=== PATIENT | female | born 1930 | race Caucasian/White ===

== ENCOUNTER 2018-10-25 09:10 | Inpatient (IN) | payer MEDICARE, OTHER ==
[~2018-10-25] VITALS: Ht 154.9 cm; Wt 70.0 kg
[~2018-10-25 09:10] MED LIST: AMLO-147 PO; ASPI-903 PO; BACTDS PO; BRIM10DR2 BOTH EYES; DONE5TAB46 PO; LATA2.5D2 BOTH EYES; LEVO100T8 PO; OLAN2.5T28 PO; OLME40TA13 PO; SIMV20TA2 PO
[2018-10-25] MEDS ORDERED: SODIUM CHLORIDE 0.9% 1L BAG IV* STA (09:13)
[2018-10-25] MEDS ORDERED: VANCOMYCIN 1 GM (PMX) 250 ML IVPB STA (09:13)
[2018-10-25] MEDS ORDERED: PIPER-TAZO 3.375 GM IV (PMX) 100 ML IVPB STA (09:13)
[2018-10-25] MEDS ORDERED: ACETAMINOPHEN 650MG/20.3ML CUP PEG STA (09:13)
--- NOTE | 2018-10-25 10:10 | ERD ---
ER Documentation Chief Complaint Chief Complaint HPI This is an 88-year-old female who presents to the emergency department by EMS fr [facility]. The patient is chronic bedbound with physician orders for life-sustaining treatment that indicates elective treatment. The patient agrees to attempt CPR, request transfer to the hospital and to use medical treatment IV antibiotics and IV fluids as indicated but specifically indicated she does not want intubation. She does allow for noninvasive positive airway pressure. The patient presented to the emergency department today from her [facility] facility for severe difficulty breathing and hypoxia. The patient was febrile. No antipyretics were given prior to arrival. It is unknown if the patient had any recent hospitalizations. The patient has a PEG tube. ROS All systems reviewed and are negative except as per history of present illness. Medications Home Meds Active Scripts Sulfamethoxazole-Trimethoprim* (Bactrim* DS) 800-160 Mg Tab, 1 TAB PO BID, #20 TAB Prov:JOAN MURPHY V. IMPREGNATOR HELPER 01/20/16 Olanzapine* (Zyprexa*) 2.5 Mg Tablet, 2.5 MG PO DAILY for 30 Days, TAB Prov:MURPHYJOAN HERNANDEZ V. IMPREGNATOR HELPER 01/20/16 Donepezil* (Aricept*) 5 Mg Tablet, 5 MG PO DAILY for 30 Days, TAB Prov:JOAN MURPHY V. IMPREGNATOR HELPER 01/20/16 Reported Medications Latanoprost (Latanoprost) 2.5 Ml Drops, 1 DROP BOTH EYES QHS, #1 BOTTLE 01/17/16 Brimonidine/Timolol* (Combigan*) 10 Ml Drops, 1 DROP BOTH EYES BID, EA 01/17/16 Olmesartan Medoxomil (Benicar) 40 Mg Tablet, 40 MG PO DAILY, #30 TAB 01/17/16 Simvastatin (Simvastatin) 20 Mg Tablet, 20 MG PO DAILY, #30 TAB 01/17/16 Amlodipine Besylate* (Amlodipine Besylate*) 10 Mg Tablet, 10 MG PO DAILY, #30 TAB 01/17/16 Levothyroxine Sodium* (Levothyroxine Sodium*) 100 Mcg Tablet, 100 MCG PO BEFORE BREAKFAST, #30 TAB 01/17/16 Aspirin* (Aspirin* Chew) 81 Mg Tab.chew, 81 MG PO DAILY, TAB.CHEW 01/17/16 Allergies Allergies: Coded Allergies: No Known Allergy (Unverified , 7/10/16) PMhx/Soc History of Surgery: Yes (GALLBLADDER REMOVED 1999, HERNIA REPAIR 30 YRS , LASER [id number]) Anesthesia Reaction: No Hx Neurological Disorder: No Hx Respiratory Disorders: No Hx Cardiac Disorders: No Hx Psychiatric Problems: No Hx Miscellaneous Medical Probl: No Hx Alcohol Use: No Hx Substance Use: No Hx Tobacco Use: No Physical Exam Vitals Vital Signs Date Temp Pulse Resp B/P (MAP) Pulse Ox O2 O2 Flow FiO2 Time Delivery Rate 10/25/18 45 98 30 09:32 10/25/18 101.1 09:30 10/25/18 101.1 60 20 132/53 100 09:12 (79) 10/25/18 Non 10 09:12 Rebreathe r Physical Exam Constitutional:Well-developed. Debilitated patient in severe respiratory distress HEENT:Normocephalic. Atraumatic.Pupils were equal round reactive to light. Moist mucous membranes.No tonsillar exudates. Neck: No nuchal rigidity. No lymphadenopathy. No posterior cervical spine tend erness or step-offs. Respiratory: Using accessory muscles of respiration. Rhonchi bilaterally. No w heezing on end auscultation bilaterally Cardiovascular: Regular rate regular rhythm.No murmurs. No rubs were appreciated.S1, S2 normal. Distal pulses are palpable 2+ bilaterally. GI: Abdomen was soft. Nontender. Non Distended. No pulsatile abdominal masses or bruits. No rebound. No guarding. Bowel sounds were present and normal. PEG tube present Muscle skeletal: No atrophy of the bilateral lower extremities. Patient has no movement of the bilateral lower extremities Skin: No petechia, no purpura. No lesions on the palms or the soles of the feet. No maculopapular rash. No sacral decubitus ulcers NEURO: Patient opens eyes in response to pain. Patient does withdraw to pain. Aphasic and gait unobserved as patient is bedbound Result Diagram: 10/25/1891210/25/18912 Results 24 hrs Laboratory Tests Test 10/25/18 09:13 10/25/18 09:19 10/25/18 10:25 White Blood Count 7.2 10^3/ul Red Blood Count 2.61 10^6/ul Hemoglobin 8.6 g/dl Hematocrit 26.4 % Mean Corpuscular Volume 101.1 fl Mean Corpuscular Hemoglobin 33.0 pg Mean Corpuscular 32.6 g/dl Hemoglobin Concent Red Cell Distribution Width 17.7 % Platelet Count 110 10^3/UL Mean Platelet Volume 10.0 fl Immature Granulocytes % 1.000 % Neutrophils % 85.4 % Lymphocytes % 5.7 % Monocytes % 7.8 % Eosinophils % 0.0 % Basophils % 0.1 % Nucleated Red Blood Cells % 0.0 /100WBC Immature Granulocytes # 0.070 10^3/ul Neutrophils # 6.2 10^3/ul Lymphocytes # 0.4 10^3/ul Monocytes # 0.6 10^3/ul Eosinophils # 0.0 10^3/ul Basophils # 0.0 10^3/ul Nucleated Red Blood Cells # 0.0 10^3/ul Prothrombin Time 18.2 Sec Prothrombin Time Ratio 1.4 INR International 1.50 Normalized Ratio Activated Partial Thromboplast 36.8 Sec Time Sodium Level 136 mmol/L Potassium Level 4.6 mmol/L Chloride Level 104 mmol/L Carbon Dioxide Level 28 mmol/L Anion Gap 4 Blood Urea Nitrogen 30 mg/dl Creatinine 1.08 mg/dl Est Glomerular Filtrat mL/min Rate mL/min Glucose Level 137 mg/dl Calcium Level 8.9 mg/dl Total Bilirubin 1.3 mg/dl Direct Bilirubin 0.00 mg/dl Indirect Bilirubin 1.3 mg/dl Aspartate Amino 49 IU/L Transf (AST/SGOT) Alanine 28 IU/L Aminotransferase (ALT/SGPT) Alkaline Phosphatase 148 IU/L Troponin I 0.065 ng/ml B-Type Natriuretic Peptide 61139 PG/ML Total Protein 7.4 g/dl Albumin 2.5 g/dl Globulin 4.90 g/dl Albumin/Globulin Ratio 0.51 Amylase Level 83 U/L Lipase 106 U/L POC Venous Lactate 2.2 mmol/L Urine Color CAMPOS Urine Clarity TURBID Urine pH 5.0 Urine Specific [place] 1.016 Urine Ketones NEGATIVE mg/dL Urine Nitrite NEGATIVE mg/dL Urine Bilirubin NEGATIVE mg/dL Urine Urobilinogen NEGATIVE mg/dL Urine Leukocyte Esterase 3+ Courtney/ul Urine Microscopic RBC 0 /HPF Urine Microscopic WBC > 182 /HPF Urine Squamous Epithelial Cells FEW /HPF Urine Amorphous Crystals FEW /HPF Urine Bacteria MANY /HPF Urine Mucus FEW /HPF Urine Hemoglobin 1+ mg/dL Urine Glucose 1+ mg/dL Urine Total Protein 3+ mg/dl Current Medications Medications Dose Sig/Renee Start Time Status Last (Trade) Ordered Route PRN Stop Time Admin Dose Reason Admin Sodium 2,400 ml BOLUS OVER 2 10/25/18 DC 10/25/18 Chloride HOURS STAT 09:13 09:29 (NS) IV* 10/25/18 09:23 650 mg ONCE STAT 10/25/18 DC 10/25/18 Acetaminophen PEG 09:13 09:30 (Tylenol 10/25/18 09:23 Liquid) Vancomycin 250 ml @ ONCE STAT 10/25/18 10/25/18 HCl 125 mls/hr IVPB 09:13 10:29 10/25/18 11:12 Piperacillin 100 ml @ ONCE STAT 10/25/18 DC 10/25/18 Sod/ 200 mls/hr IVPB 09:13 09:30 Tazobactam 10/25/18 09:42 Sod Procedures/MDM This patient presented to the emergency department febrile with difficulty breathing. Patient's infectious symptoms have not stabilized and the patient is at risk of rapid decompensation. The patient will be admitted for careful hydration, antibiotic therapy, and infectious source control. Severe Sepsis Assessment: Infectious Source: Suspected aspiration pneumonia End organ damage indicated by: Lactate > 2.0 mmol/L Hypotension( SBP < 90 or >40 mmHG drop or MAP < 65) Acute Resp Failure (sat < 92% w/o oxygen) Severe Sepsis Managment: Blood Cultures X 2 before broad spectrum antibiotics initiated within 3 hours of recognition. 30 ml/kg NS bolus Completed Initial Lactate: 2.2 Repeat Lactate pending I considered further perfusion assessment with CVP measurement, SCVO2, bedside ultrasound volume assessment, passive leg raise, trial of further fluid bolus. And preceded with IV fluids 12 Lead EKG tracing ordered and reviewed by myself showed: Sinus bradycardia at 50 bpm and no arrhythmia. WI interval normal. QRS duration normal. No ST segment elevation No ST segment depression. No changes consistent with acute ischemia. The patient chest radiograph reviewed by myself the radiologist which indicated the following: Moderate cardiomegaly with pulmonary vascular congestion. Slightly more focal right lower lobe infiltrates. The patient had received vancomycin and Zosyn for suspected aspiration pneumonia. However the patient's respiratory distress was also also consistent with a severe congestive heart failure exacerbation with an elevated BNP. Therefore patient received gentle IV fluid resuscitation did not receive a com plete 30 cc/kg bolus of normal saline due to fluid overload. The patient did receive roughly 1 L of IV fluids. The patient was normotensive and did receive 20 mg of Lasix intravenously as well as nebulizer treatments of albuterol and Atrovent. Her respiratory distress had significantly improved when on the BiPAP. The patient also had an indwelling Chris catheter placed in the emergency depart ment. She had a significant urinary tract infection but had already received broad-spectrum antibiotics for aspiration pneumonia. Urine culture and blood cultures were sent prior to antibiotics She will be admitted in serious condition to the hospitalist Dr. Dangelo. Critical Care: Time: 80 minutes Treatments/Evaluations: Close monitoring and treatment of unstable vital signs, cardiorespiratory, and neurologic status, while maintaining tight balance of fluid, respiratory, and cardiac interventions. Time does not include performing any of the above billable procedures. Departure Diagnosis: Primary Impression: CHF (congestive heart failure) Heart failure type: unspecified Heart failure chronicity: acute on chronic Qualified Codes: I50.9 - Heart failure, unspecified Additional Impressions: Aspiration pneumonia Aspiration pneumonia type: unspecified Laterality: right Lung location: lower lobe of lung Qualified Codes: J69.0 - Pneumonitis due to inhalation of food and vomit Urinary tract infection Urinary tract infection type: acute cystitis Hematuria presence: without hematuria Qualified Codes: N30.00 - Acute cystitis without hematuria Sepsis Sepsis type: sepsis due to unspecified organism Qualified Codes: A41.9 - Sepsis, unspecified organism Condition: Serious NAZIA LEAL MD Oct 25, 2018 10:06
[2018-10-25] MEDS ORDERED: ALBUTEROL 0.5% (NEB) 2.5 MG/0.5 ML AMP INH STA (11:01)
[2018-10-25] MEDS ORDERED: IPRATROPIUM (NEB) 0.5 MG/2.5 ML AMP INH STA (11:01)
[2018-10-25] MEDS ORDERED: AMLO5TAB4 GTB (11:08)
[2018-10-25] MEDS ORDERED: ASPI81TA52 GTB (11:09)
[2018-10-25] MEDS ORDERED: LATA2.5D2 BOTH EYES (11:10)
[2018-10-25] MEDS ORDERED: LEVO50TA71 GTB (11:10)
[2018-10-25] MEDS ORDERED: LACT20SO2 PO (11:13)
[2018-10-25] MEDS ORDERED: FOLI-49 GTB (11:16)
[2018-10-25] MEDS ORDERED: ESCI10TA GTB (11:17)
[2018-10-25] MEDS ORDERED: FER325 GTB (11:17)
[2018-10-25] MEDS ORDERED: BUSP10TA2 GTB (11:19)
[2018-10-25] MEDS ORDERED: NA P133E10 RC (11:20)
[2018-10-25] MEDS ORDERED: BISA10SU55 RC (11:21)
[2018-10-25] MEDS ORDERED: MAGN400O19 GTB (11:22)
[2018-10-25] MEDS ORDERED: FUROSEMIDE 20 MG INJ IV ONE (11:30)
[2018-10-25] MEDS ORDERED: ONDANSETRON 4 MG INJ IV PRN ×2 (11:30→14:30)
[2018-10-25] MEDS ORDERED: ACETAMINOPHEN 325 MG TAB PO PRN (11:30)
--- NOTE | 2018-10-25 14:05 | HP ---
Date/Time of Note Date/Time of Note DATE: 10/25/18 TIME: 14:05 Assessment/Plan VTE Prophylaxis Pharmacological prophylaxis: NA/contraindicated Pharm contraindication: other Lines/Catheters IV [facility]from [facility] Saline Lock Assessment/Plan Hospital Course 88 year old female with past medical history of hypertension, hyperlipidemia, hypothyroidism, dementia, dysphagia status post G-tube placement, and carotid artery disease. [facility]. The patient was transferred from the SNF because of tachypnea and dyspnea. She was found to have evidence of underlying sepsis with tachypnea, febrile illness, and lactic acidosis. The patient will be admitted to inpatient setting for further treatment and evaluation. 1. Sepsis with underlying tachypnea, fevers, and lactic acidosis, present on admission, probably secondary to underlying urinary tract infection. Sepsis criteria: tachypnea, fevers, and lactic acidosis. Infectious source: Suspect UTI and aspiration pneumonitis. -Pancultures obtained. -Start empiric antibiotics including coverage for anaerobes because of suspected aspiration. 2. Acute hypoxic respiratory failure. -Etiology unclear. -Continue the patient on inhaled bronchodilators (KAY). -Obtain 2D echocardiogram to evaluate for any underlying congestive heart failure. -Continue treatment for aspiration pneumonia. 3. Hypertension. -Start the patient on appropriate antihypertensives. 4. Hypothyroidism. -Resume Synthroid. 5. Dysphagia. -Aspiration precautions. -Resume G-tube feedings once clinically stable. 6. Dyslipidemia. -Obtain fasting lipid panel. 7. Anemia. -Macrocytic -Etiology unclear -Obtain vitamin B12 and folate levels. 8. Possible underlying congestive heart failure exacerbation, systolic versus diastolic dysfunction. -Obtain 2D echocardiogram to evaluate the left ventricular ejection fraction. -Diuresis as clinically indicated. Plan: The patient will be admitted to inpatient telemetry floor. The patient will be kept n.p.o.. The patient will be started on DVT prophylaxis. The patient will remain a full code except for intubation. Activities will be bedrest. The rest of the patient's management will be based on the clinical course and the results of diagnostic studies. Based on the patient's clinical presentation, she most probably requires at least 2 midnights' stay for further management and evaluation of her clinical presentation. The patient was seen in collaboration with Dr. Bryant. Result Diagram: 10/25/18 0913 10/25/18 0913 Results 24hrs Laboratory Tests Test 10/25/18 09:13 10/25/18 09:19 10/25/18 10:25 White Blood Count 7.2 # Red Blood Count 2.61 L Hemoglobin 8.6 L Hematocrit 26.4 L Mean Corpuscular Volume 101.1 H Mean Corpuscular Hemoglobin 33.0 Mean Corpuscular 32.6 Hemoglobin Concent Red Cell Distribution Width 17.7 #H Platelet Count 110 L Mean Platelet Volume 10.0 # Immature Granulocytes % 1.000 H Neutrophils % 85.4 H Lymphocytes % 5.7 L Monocytes % 7.8 Eosinophils % 0.0 Basophils % 0.1 Nucleated Red Blood Cells % 0.0 Immature Granulocytes # 0.070 H Neutrophils # 6.2 Lymphocytes # 0.4 L Monocytes # 0.6 Eosinophils # 0.0 Basophils # 0.0 Nucleated Red Blood Cells # 0.0 Prothrombin Time 18.2 H Prothrombin Time Ratio 1.4 INR International 1.50 Normalized Ratio Activated 36.8 H Partial Thromboplast Time Blood Gas Specimen Source Blood arterial Arterial Blood Date Drawn 10/25/2018 11:36:08 AM Arterial Blood pH 7.433 (Temp corrected) Arterial Blood pCO2 42.1 (Temp correct) Arterial Blood pO2 70.5 L (Temp corrected) Arterial Blood HCO3 27.5 H Arterial Blood Base Excess 2.9 Arterial Blood 93.2 L Oxygen Saturation Bahman Test ACCEPTAB Arterial Blood Gas Right Radial Puncture Site Arterial 0.8 Blood Carboxyhemoglobin Arterial Blood 0.2 Methemoglobin Blood Gas A-a O2 93.9 H Differential Oxyhemoglobin Percent 92.3 L Blood Gas Temperature 37.0 Blood Gas Respiration Rate 14.0 Blood Gas Actual 22 Respiration Rate Blood Gas Modality MASK - BIPAP FiO2 30.0 Blood Gas Pressure Support 10 Blood Gas IPAP/EPAP Ratio 15/5 Blood Gas Notified Whom CM Blood Gas Notified Time 10/25/2018 11:50:08 AM Sodium Level 136 Potassium Level 4.6 Chloride Level 104 Carbon Dioxide Level 28 Anion Gap 4 L Blood Urea Nitrogen 30 H Creatinine 1.08 H Est Glomerular Filtrat Rate mL/min Glucose Level 137 Calcium Level 8.9 Total Bilirubin 1.3 Direct Bilirubin 0.00 Indirect Bilirubin 1.3 H Aspartate Amino 49 H Transf (AST/SGOT) Alanine 28 Aminotransferase (ALT/SGPT) Alkaline Phosphatase 148 H Troponin I 0.065 B-Type Natriuretic Peptide 63250 H Total Protein 7.4 Albumin 2.5 L Globulin 4.90 H Albumin/Globulin Ratio 0.51 Amylase Level 83 Lipase 106 POC Venous Lactate 2.2 *H Urine Color CAMPOS Urine Clarity TURBID A Urine pH 5.0 Urine Specific [place] 1.016 Urine Ketones NEGATIVE Urine Nitrite NEGATIVE Urine Bilirubin NEGATIVE Urine Urobilinogen NEGATIVE Urine Leukocyte Esterase 3+ H Urine Microscopic RBC 0 Urine Microscopic WBC > 182 H Urine Squamous FEW Epithelial Cells Urine Amorphous Crystals FEW A Urine Bacteria MANY A Urine Mucus FEW A Urine Hemoglobin 1+ H Urine Glucose 1+ H Urine Total Protein 3+ H HPI/ROS Admit Date/Time Admit Date/Time Hx of Present Illness This is an 88-year-old female with past medical history of hypertension, hyperlipidemia, hypothyroidism, dementia, dysphagia status post G-tube placement, and carotid artery disease. The patient is a residential resident. The patient was brought in to the emergency room because of dyspnea and hypoxia. The patient has underlying dementia and the patient was on a noninvasive positive pressure ventilation in the emergency room. Therefore, details of the patient's medical history was obtained by review of the patient's medical records by and by talking to the ER personnel. In the emergency room, the patient was noticed to have febrile illness, lactic acidosis, and tachypnea. The patient's chest x-ray was showing moderate cardiomegaly with pulmonary vascular congestion and a slightly more focal right lower lobe infiltrate. The patient was treated with IV Zosyn and vancomycin along with inhaled bronchodilators and a single dose of IV Lasix. The patient was also given IV fluid resuscitation. The patient's influenza A and B screen was negative. The patient's urinalysis was positive for 3+ leukocyte esterase with a urine microscopic WBC of more than 182. The patient's ABG was showing evidence of hypoxia. ROS Subjective hx not possible: pt non-verbal, pt critical status Additional Comments CXR IMPRESSION: Moderate cardiomegaly with pulmonary vascular congestion. Slightly more focal right lower lobe infiltrates. PMH/Family/Social Past Medical History 1. Hypertension. 2. Hyperlipidemia. 3. Hypothyroidism. 4. Dementia. 5. Carotid artery disease. 6. Dysphagia. Medications Current Medications Ondansetron HCl (Zofran Inj) 4 mg ER BRIDGE PRN IV NAUSEA/VOMITING; Start 10/25/18 at 11:30; Stop 4/20/19 at 11:29 Acetaminophen (Tylenol Tab) 650 mg ER BRIDGE PRN PO .MILD PAIN 1-3 OR TEMP; Start 10/25/18 at 11:30; Stop 10/26/18 at 11:29 Coded Allergies: No Known Allergy (Unverified , 10/25/18) Past Surgical History 1. G-tube placement. 2. Cholecystectomy. 3. Hernia repair. Social History The patient is a residential resident. Alcohol Use: none Smoking Status: Never smoker Drug Use: none Exam/Review of Systems Vital Signs Vitals Vital Signs Date Temp Pulse Resp B/P (MAP) Pulse Ox O2 O2 Flow FiO2 Time Delivery Rate 10/25/18 59 96 30 13:48 10/25/18 21 133/47 BIPAP 11:30 (75) 10/25/18 101.1 09:30 10/25/18 10 09:12 Exam Exam General: Adequately build 88 year-old female lying in bed in mild to moderate r espiratory distress. HEENT: Normocephalic, atraumatic. Eyes: Anicteric sclerae, conjunctivae clear. ENT: Nasal septum midline, oral mucosa is dry. Neck supple. Respiratory: Bilaterally diminished breath sounds. On BiPAP. Use of accessory muscles of respiration. Bilateral rhonchi. Cardiovascular: S1, S2 heard. Regular rate and rhythm. Abdomen: Soft, nontender, and nondistended. G-tube in the left upper quadrant. Genitourinary: Hcris catheter in place.. Extremities: No cyanosis, no clubbing, no edema. Peripheral pulses palpable. Contractures in bilateral lower extremities. Neurologic: The patient is somnolent. ADRIANE MAHMOOD NP Oct 25, 2018 14:05
[2018-10-25] MEDS ORDERED: NACL 0.9% 3 ML SYG IV SCH (14:30)
[2018-10-25] MEDS ORDERED: VANCOMYCIN IV PER PHARMACY XX SCH (14:30)
[2018-10-25] MEDS ORDERED: ALBUTEROL/IPRATROPIUM (NEB) 3 ML AMP HHN PRN (14:30)
[2018-10-25] MEDS ORDERED: NA PHOSPHATE/BIPHOS 133 ML ENEMA PR PRN (15:30)
[2018-10-25] MEDS ORDERED: BISACODYL 10 MG SUPP PR PRN (15:30)
[2018-10-25 17:45] VITALS: Ht 154.9 cm; Wt 70.0 kg
[2018-10-25 17:55] VITALS: BP 135/63; PULSE 48; RESP 14
[2018-10-25] MEDS ORDERED: PIPER-TAZO 3.375 GM IV (PMX) 100 ML IVPB SCH (18:00)
[2018-10-25 20:00] VITALS: BP 129/63; PULSE 60; RESP 15
[2018-10-25] MEDS: ALBUTEROL/IPRATROPIUM (NEB) 3 ML AMP HHN SCH (20:09)
[2018-10-25 20:12] VITALS: PULSE 41; PULSE 48
[2018-10-25] MEDS ORDERED: BUSPIRONE 10 MG TAB GTB SCH (21:00)
[2018-10-25] MEDS ORDERED: ATROPINE 1 MG/10 ML SYRINGE IV PRN (22:00)
[2018-10-25] MEDS: LACTULOSE 30ML CUP PO SCH (22:46)
[2018-10-25] MEDS: LATANOPROST 0.005% 2.5 ML OPH BOTH EYES SCH (22:47)
[2018-10-25 23:06] VITALS: BP 137/58; PULSE 46; RESP 16
[2018-10-26] VITALS (13 sets, daily range): BP systolic 128–173; BP diastolic 66–93; PULSE 43–94; RESP 16–21
[2018-10-26] MEDS: PIPER-TAZO 2.25 GM/NS 50 ML IVPB SCH ×4 (00:06→18:06)
[2018-10-26] MEDS: LEVOTHYROXINE 50 MCG TAB GTB SCH (07:02)
[2018-10-26] MEDS: ALBUTEROL/IPRATROPIUM (NEB) 3 ML AMP HHN SCH ×3 (07:56→20:22)
--- NOTE | 2018-10-26 09:12 | PN ---
Date/Time of Note Date/Time of Note DATE: 10/26/18 TIME: 09:07 Assessment/Plan VTE Prophylaxis Risk score (from Ns)>0 risk: 8 SCD applied (from Ns): Yes Pharmacological prophylaxis: NA/contraindicated Pharm contraindication: anticoag not tolerated Lines/Catheters IV C[facility]ter Type (from [facility] Saline Lock Urinary Cath still in place: Yes Reason Cath still needed: other (indicate) Assessment/Plan Hospital Course SUBJECTIVE: Remains afebrile. Had episodes of sinus bradycardia last night. OBJECTIVE: Physical Exam General: Adequately build 88 year-old female lying in bed in mild to moderate respiratory distress. HEENT: Normocephalic, atraumatic. Eyes: Anicteric sclerae, conjunctivae clear. ENT: Nasal septum midline, oral mucosa is dry. Neck supple. Respiratory: Bilaterally diminished breath sounds. On BiPAP. Use of accessory muscles of respiration. Bilateral rhonchi. Cardiovascular: S1, S2 heard. Regular rate and rhythm. Abdomen: Soft, nontender, and nondistended. G-tube in the left upper quadrant. Genitourinary: Chris catheter in place.. Extremities: No cyanosis, no clubbing, no edema. Peripheral pulses palpable. Contractures in bilateral lower extremities. Neurologic: The patient is somnolent. Labs & Vitals per chart ASSESSMENT & PLAN 88 year old female with past medical history of hypertension, hyperlipidemia, hypothyroidism, dementia, dysphagia status post G-tube placement, and carotid artery disease. The patient lives at a longterm facility. The patient was transferred from the SNF because of tachypnea and dyspnea. She was found to have evidence of underlying sepsis with tachypnea, febrile illness, and lactic acidosis. The patient was admitted to inpatient setting for further treatment and evaluation. 1. Sepsis with underlying tachypnea, fevers, and lactic acidosis, present on admission, probably secondary to underlying urinary tract infection. Sepsis criteria: tachypnea, fevers, and lactic acidosis. Infectious source: Suspect UTI and aspiration pneumonitis. -Pancultures obtained. -Continue empiric antibiotics including coverage for anaerobes because of suspected aspiration. 2. Acute hypoxic respiratory failure. -Etiology unclear. -Continue the patient on inhaled bronchodilators (KAY). -Obtain 2D echocardiogram to evaluate for any underlying congestive heart failure. -Continue treatment for aspiration pneumonia. 3. Hypertension. -Continue the patient on appropriate antihypertensives. 4. Hypothyroidism. -Continue Synthroid. 5. Dysphagia. -Aspiration precautions. -Continue G-tube feedings. 6. Dyslipidemia. -Obtain fasting lipid panel. 7. Anemia. -Macrocytic -Etiology unclear -Obtain vitamin B12 and folate levels. 8. Possible underlying congestive heart failure exacerbation, systolic versus diastolic dysfunction. -Obtain 2D echocardiogram to evaluate the left ventricular ejection fraction. -Diuresis as clinically indicated. 9. Sinus bradycardia. -Etiology unclear. -Thyroid panel within normal limits. -Monitor. 10. Fluids, electrolytes, and nutrition. -N.p.o. -Resume G-tube feeds. 11. DVT prophylaxis. -Bilateral SCDs. 12. Plan. -Continue empiric antimicrobials. -Continue diuresis. -Await 2D echocardiogram. -Await final cultures. -Start G-tube feeds. The patient was seen in collaboration with Dr. Bryant. Result Diagram: 10/26/18 0533 10/26/1833 Results 24hrs Laboratory Tests Test 10/25/18 09:13 10/25/18 09:19 10/25/18 10:25 10/25/18 13:30 White Blood 7.2 # Count Red Blood Count 2.61 L Hemoglobin 8.6 L Hematocrit 26.4 L Mean Corpuscular 101.1 H Volume Mean Corpuscular 33.0 Hemoglobin Mean Corpuscular 32.6 Hemoglobin Jovita nt Red Cell 17.7 #H Distribution Width Platelet Count 110 L Mean Platelet 10.0 # Volume Immature 1.000 H Granulocytes % Neutrophils % 85.4 H Lymphocytes % 5.7 L Monocytes % 7.8 Eosinophils % 0.0 Basophils % 0.1 Nucleated Red 0.0 Blood Cells % Immature 0.070 H Granulocytes # Neutrophils # 6.2 Lymphocytes # 0.4 L Monocytes # 0.6 Eosinophils # 0.0 Basophils # 0.0 Nucleated Red 0.0 Blood Cells # Prothrombin Time 18.2 H Prothrombin Time 1.4 Ratio INR 1.50 International Normalized Ratio Activated 36.8 H Partial Thrombop last Time Blood Gas Blood arterial Specimen Source Arterial Blood 10/25/2018 11:36 Date Drawn :08 AM Arterial Blood 7.433 pH (Temp corrected) Arterial Blood 42.1 pCO2 (Temp correct) Arterial Blood 70.5 L pO2 (Temp corrected) Arterial Blood 27.5 H HCO3 Arterial Blood 2.9 Base Excess Arterial Blood 93.2 L Oxygen Saturatio n Bahman Test ACCEPTAB Arterial Blood Right Radial Gas Puncture Site Arterial 0.8 Blood Carboxyhem oglobin Arterial Blood 0.2 Methemoglobin Blood Gas A-a O2 93.9 H Differential Oxyhemoglobin 92.3 L Percent Blood Gas 37.0 Temperature Blood Gas 14.0 Respiration Rate Blood Gas Actual 22 Respiration Rate Blood Gas MASK - BIPAP Modality FiO2 30.0 Blood Gas 10 Pressure Support Blood Gas 15/5 IPAP/EPAP Ratio Blood Gas CM Notified Whom Blood Gas 10/25/2018 11:50 Notified Time :08 AM Sodium Level 136 Potassium Level 4.6 Chloride Level 104 Carbon Dioxide 28 Level Anion Gap 4 L Blood Urea 30 H Nitrogen Creatinine 1.08 H Est Glomerular Filtrat Rate mL/min Glucose Level 137 Calcium Level 8.9 Total Bilirubin 1.3 Direct Bilirubin 0.00 Indirect 1.3 H Bilirubin Aspartate Amino 49 H Transf (AST/SGOT ) Alanine 28 Aminotransferase (ALT/SGPT) Alkaline 148 H Phosphatase Troponin I 0.065 B-Type 39855 H Natriuretic Peptide Total Protein 7.4 Albumin 2.5 L Globulin 4.90 H Albumin/Globulin 0.51 Ratio Amylase Level 83 Lipase 106 POC Venous 2.2 *H Lactate Urine Color CAMPOS Urine Clarity TURBID A Urine pH 5.0 Urine Specific 1.016 Merna Urine Ketones NEGATIVE Urine Nitrite NEGATIVE Urine Bilirubin NEGATIVE Urine NEGATIVE Urobilinogen Urine Leukocyte 3+ H Esterase Urine 0 Microscopic RBC Urine > 182 H Microscopic WBC Urine Squamous FEW Epithelial Cells Urine Amorphous FEW A Crystals Urine Bacteria MANY A Urine Mucus FEW A Urine Hemoglobin 1+ H Urine Glucose 1+ H Urine Total 3+ H Protein Lactic Acid 1.4 Level Test 10/25/18 15:34 10/25/18 20:36 10/26/18 05:33 Hemoglobin A1c 4.6 Vitamin B12 872 Level Folate > 20.0 H Thyroid 4.620 Stimulating Hormone (TSH) Free Thyroxine 0.95 Blood Gas Blood arterial Specimen Source Arterial Blood 10/25/2018 8:48: Date Drawn 29 PM Arterial Blood 7.451 H pH (Temp corrected) Arterial Blood 40.5 pCO2 (Temp correct) Arterial Blood 82.4 pO2 (Temp corrected) Arterial Blood 27.6 H HCO3 Arterial Blood 3.3 H Base Excess Arterial Blood 95.6 Oxygen Saturatio n Bahman Test ACCEPTAB Arterial Blood Left Radial Gas Puncture Site Arterial 0.5 Blood Carboxyhem oglobin Arterial Blood 0.1 Methemoglobin Blood Gas A-a O2 83.9 H Differential Oxyhemoglobin 95.0 Percent Blood Gas 37.0 Temperature Blood Gas 14.0 Respiration Rate Blood Gas Actual 14 Respiration Rate Blood Gas MASK - BIPAP Modality FiO2 30.0 Blood Gas 10 Pressure Support Blood Gas 15/5 IPAP/EPAP Ratio Blood Gas LW Notified Whom Blood Gas 10/25/2018 9:01: Notified Time 38 PM White Blood 3.9 #L Count Red Blood Count 2.71 L Hemoglobin 8.7 L Hematocrit 27.6 L Mean Corpuscular 101.8 H Volume Mean Corpuscular 32.1 Hemoglobin Mean Corpuscular 31.5 L Hemoglobin Jovita nt Red Cell 17.8 H Distribution Width Platelet Count 83 #L Mean Platelet 11.0 H Volume Immature 0.500 H Granulocytes % Neutrophils % 71.8 Lymphocytes % 10.9 L Monocytes % 11.1 H Eosinophils % 5.2 Basophils % 0.5 Nucleated Red 0.0 Blood Cells % Immature 0.020 Granulocytes # Neutrophils # 2.8 Lymphocytes # 0.4 L Monocytes # 0.4 Eosinophils # 0.2 Basophils # 0.0 Nucleated Red 0.0 Blood Cells # Sodium Level 140 Potassium Level 3.9 Chloride Level 111 H Carbon Dioxide 26 Level Anion Gap 3 L Blood Urea 33 H Nitrogen Creatinine 1.17 H Est Glomerular Filtrat Rate mL/min Glucose Level 78 # Calcium Level 8.8 Phosphorus Level 3.9 Magnesium Level 2.5 Total Bilirubin 1.1 Direct Bilirubin 0.00 Indirect 1.1 Bilirubin Aspartate Amino 39 Transf (AST/SGOT ) Alanine 28 Aminotransferase (ALT/SGPT) Alkaline 89 Phosphatase Total Protein 6.1 # Albumin 2.0 L Globulin 4.10 H Albumin/Globulin 0.48 Ratio Triglycerides 40 Level Cholesterol 57 L Level LDL Cholesterol, 35 Calculated HDL Cholesterol 14 L Cholesterol/HDL 4.0 Ratio Exam/Review of Systems Exam Vitals Vital Signs Date Temp Pulse Resp B/P (MAP) Pulse Ox O2 O2 Flow FiO2 Time Delivery Rate 10/26/18 49 08:11 10/26/18 97.9 17 128/78 96 07:53 (95) 10/26/18 Nasal 07:32 Cannula 10/26/18 40 05:24 10/25/18 10 09:12 Intake and Output 10/25/18 10/25/18 10/26/18 1515:00 23:00 07:00 OutputOutput Total 200 ml 500 ml BalanceBalance -200 ml -500 ml Results Results 24hrs Laboratory Tests Test 10/25/18 09:13 10/25/18 09:19 10/25/18 10:25 10/25/18 13:30 White Blood 7.2 # Count Red Blood Count 2.61 L Hemoglobin 8.6 L Hematocrit 26.4 L Mean Corpuscular 101.1 H Volume Mean Corpuscular 33.0 Hemoglobin Mean Corpuscular 32.6 Hemoglobin Jovita nt Red Cell 17.7 #H Distribution Width Platelet Count 110 L Mean Platelet 10.0 # Volume Immature 1.000 H Granulocytes % Neutrophils % 85.4 H Lymphocytes % 5.7 L Monocytes % 7.8 Eosinophils % 0.0 Basophils % 0.1 Nucleated Red 0.0 Blood Cells % Immature 0.070 H Granulocytes # Neutrophils # 6.2 Lymphocytes # 0.4 L Monocytes # 0.6 Eosinophils # 0.0 Basophils # 0.0 Nucleated Red 0.0 Blood Cells # Prothrombin Time 18.2 H Prothrombin Time 1.4 Ratio INR 1.50 International Normalized Ratio Activated 36.8 H Partial Thrombop last Time Blood Gas Blood arterial Specimen Source Arterial Blood 10/25/2018 11:36 Date Drawn :08 AM Arterial Blood 7.433 pH (Temp corrected) Arterial Blood 42.1 pCO2 (Temp correct) Arterial Blood 70.5 L pO2 (Temp corrected) Arterial Blood 27.5 H HCO3 Arterial Blood 2.9 Base Excess Arterial Blood 93.2 L Oxygen Saturatio n Bahman Test ACCEPTAB Arterial Blood Right Radial Gas Puncture Site Arterial 0.8 Blood Carboxyhem oglobin Arterial Blood 0.2 Methemoglobin Blood Gas A-a O2 93.9 H Differential Oxyhemoglobin 92.3 L Percent Blood Gas 37.0 Temperature Blood Gas 14.0 Respiration Rate Blood Gas Actual 22 Respiration Rate Blood Gas MASK - BIPAP Modality FiO2 30.0 Blood Gas 10 Pressure Support Blood Gas 15/5 IPAP/EPAP Ratio Blood Gas CM Notified Whom Blood Gas 10/25/2018 11:50 Notified Time :08 AM Sodium Level 136 Potassium Level 4.6 Chloride Level 104 Carbon Dioxide 28 Level Anion Gap 4 L Blood Urea 30 H Nitrogen Creatinine 1.08 H Est Glomerular Filtrat Rate mL/min Glucose Level 137 Calcium Level 8.9 Total Bilirubin 1.3 Direct Bilirubin 0.00 Indirect 1.3 H Bilirubin Aspartate Amino 49 H Transf (AST/SGOT ) Alanine 28 Aminotransferase (ALT/SGPT) Alkaline 148 H Phosphatase Troponin I 0.065 B-Type 45623 H Natriuretic Peptide Total Protein 7.4 Albumin 2.5 L Globulin 4.90 H Albumin/Globulin 0.51 Ratio Amylase Level 83 Lipase 106 POC Venous 2.2 *H Lactate Urine Color CAMPOS Urine Clarity TURBID A Urine pH 5.0 Urine Specific 1.016 Merna Urine Ketones NEGATIVE Urine Nitrite NEGATIVE Urine Bilirubin NEGATIVE Urine NEGATIVE Urobilinogen Urine Leukocyte 3+ H Esterase Urine 0 Microscopic RBC Urine > 182 H Microscopic WBC Urine Squamous FEW Epithelial Cells Urine Amorphous FEW A Crystals Urine Bacteria MANY A Urine Mucus FEW A Urine Hemoglobin 1+ H Urine Glucose 1+ H Urine Total 3+ H Protein Lactic Acid 1.4 Level Test 10/25/18 15:34 10/25/18 20:36 10/26/18 05:33 Hemoglobin A1c 4.6 Vitamin B12 872 Level Folate > 20.0 H Thyroid 4.620 Stimulating Hormone (TSH) Free Thyroxine 0.95 Blood Gas Blood arterial Specimen Source Arterial Blood 10/25/2018 8:48: Date Drawn 29 PM Arterial Blood 7.451 H pH (Temp corrected) Arterial Blood 40.5 pCO2 (Temp correct) Arterial Blood 82.4 pO2 (Temp corrected) Arterial Blood 27.6 H HCO3 Arterial Blood 3.3 H Base Excess Arterial Blood 95.6 Oxygen Saturatio n Bahman Test ACCEPTAB Arterial Blood Left Radial Gas Puncture Site Arterial 0.5 Blood Carboxyhem oglobin Arterial Blood 0.1 Methemoglobin Blood Gas A-a O2 83.9 H Differential Oxyhemoglobin 95.0 Percent Blood Gas 37.0 Temperature Blood Gas 14.0 Respiration Rate Blood Gas Actual 14 Respiration Rate Blood Gas MASK - BIPAP Modality FiO2 30.0 Blood Gas 10 Pressure Support Blood Gas 15/5 IPAP/EPAP Ratio Blood Gas LW Notified Whom Blood Gas 10/25/2018 9:01: Notified Time 38 PM White Blood 3.9 #L Count Red Blood Count 2.71 L Hemoglobin 8.7 L Hematocrit 27.6 L Mean Corpuscular 101.8 H Volume Mean Corpuscular 32.1 Hemoglobin Mean Corpuscular 31.5 L Hemoglobin Jovita nt Red Cell 17.8 H Distribution Width Platelet Count 83 #L Mean Platelet 11.0 H Volume Immature 0.500 H Granulocytes % Neutrophils % 71.8 Lymphocytes % 10.9 L Monocytes % 11.1 H Eosinophils % 5.2 Basophils % 0.5 Nucleated Red 0.0 Blood Cells % Immature 0.020 Granulocytes # Neutrophils # 2.8 Lymphocytes # 0.4 L Monocytes # 0.4 Eosinophils # 0.2 Basophils # 0.0 Nucleated Red 0.0 Blood Cells # Sodium Level 140 Potassium Level 3.9 Chloride Level 111 H Carbon Dioxide 26 Level Anion Gap 3 L Blood Urea 33 H Nitrogen Creatinine 1.17 H Est Glomerular Filtrat Rate mL/min Glucose Level 78 # Calcium Level 8.8 Phosphorus Level 3.9 Magnesium Level 2.5 Total Bilirubin 1.1 Direct Bilirubin 0.00 Indirect 1.1 Bilirubin Aspartate Amino 39 Transf (AST/SGOT ) Alanine 28 Aminotransferase (ALT/SGPT) Alkaline 89 Phosphatase Total Protein 6.1 # Albumin 2.0 L Globulin 4.10 H Albumin/Globulin 0.48 Ratio Triglycerides 40 Level Cholesterol 57 L Level LDL Cholesterol, 35 Calculated HDL Cholesterol 14 L Cholesterol/HDL 4.0 Ratio Medications Medication Current Medications Ondansetron HCl (Zofran Inj) 4 mg ER BRIDGE PRN IV NAUSEA/VOMITING; Start 10/25/18 at 11:30; Stop 10/26/18 at 11:29 Acetaminophen (Tylenol Tab) 650 mg ER BRIDGE PRN PO .MILD PAIN 1-3 OR TEMP; Start 10/25/18 at 11:30; Stop 10/26/18 at 11:29 IV Flush (NS 3 ml) 3 ml PER PROTOCOL IV ; Start 10/25/18 at 14:30 Ondansetron HCl (Zofran Inj) 4 mg Q6H PRN IV NAUSEA/VOMITING; Start 10/25/18 at 14:30 Vancomycin HCl (Vanco Iv Per Pharmacy) VANCOMYCIN PER PHARMACY PER PROTOCOL XX ; Start 10/25/18 at 14:30 Albuterol/ Ipratropium (Duoneb) 3 ml Q6HWA RESP THERAPY HHN Last administered on 10/26/18at 07:56; Admin Dose 3 ML; Start 10/25/18 at 20:00 Albuterol/ Ipratropium (Duoneb) 3 ml Q2H RESP THERAPY PRN HHN Dyspnea; Start 10/25/18 at 14:30 Furosemide (Lasix) 20 mg DAILY IV ; Start 10/26/18 at 09:00 Bisacodyl (Dulcolax Supp) 10 mg DAILY PRN [place] CONSTIPATION; Start 10/25/18 at 15:30 Buspirone HCl (Buspar) 5 mg BID GTB Last administered on 10/25/18at 23:23; Admin Dose 5 MG; Start 10/25/18 at 21:00 Escitalopram Oxalate (Lexapro) 10 mg DAILY GTB ; Start 10/26/18 at 09:00 Folic Acid (Folic Acid) 1 mg DAILY GTB ; Start 10/26/18 at 09:00 Lactulose (Enulose) 30 gm TID PO Last administered on 10/25/18at 22:46; Admin Dose 30 GM; Start 10/25/18 at 21:00 Latanoprost (Xalatan) 1 drop QHS BOTH EYES Last administered on 10/25/18at 22:47; Admin Dose 1 DROP; Start 10/25/18 at 21:00 Levothyroxine Sodium (Synthroid) 50 mcg BEFORE BREAKFAST GTB Last administered on 10/26/18at 07:02; Admin Dose 50 MCG; Start 10/26/18 at 07:00 Magnesium Hydroxide (Milk Of Mag) 30 ml DAILY GTB ; Start 10/26/18 at 09:00 Sodium Biphosphate/ Sodium Phosphate (Fleet Enema) 133 ml DAILY PRN [place] CONSTIPATION; Start 10/25/18 at 15:30 Vancomycin HCl 100 ml @ 100 mls/hr Q24H IVPB ; Start 10/26/18 at 11:00 Piperacillin Sod/ Tazobactam Sod 50 ml @ 100 mls/hr Q6 IVPB Last administered on 10/26/18at 05:35; Admin Dose 100 MLS/HR; Start 10/26/18 at 00:00 Atropine Sulfate (Atropine (Syringe)) 0.5 mg PRN PRN IV heart rate less than 35 ; Start 10/25/18 at 22:00 ADRIANE MAHMOOD NP Oct 26, 2018 09:12
[2018-10-26] MEDS: MAGNESIUM HYDROXIDE 30ML CUP GTB SCH (09:54)
[2018-10-26] MEDS: FOLIC ACID 1 MG TAB GTB SCH (09:54)
[2018-10-26] MEDS: LACTULOSE 30ML CUP PO SCH ×3 (09:54→21:00)
[2018-10-26] MEDS: ESCITALOPRAM 10 MG TAB GTB SCH (09:55)
[2018-10-26] MEDS: FUROSEMIDE 20 MG INJ IV SCH (09:56)
[2018-10-26] MEDS: BUSPIRONE 5 MG TAB GTB SCH ×2 (11:21→21:00)
[2018-10-26] MEDS: VANCOMYCIN 500 MG (PMX) 100 ML IVPB SCH (14:02)
[2018-10-26] MEDS ORDERED: BUSPIRONE 5 MG TAB GTB SCH (21:00)
[2018-10-26] MEDS: LATANOPROST 0.005% 2.5 ML OPH BOTH EYES SCH (21:00)
[2018-10-27] VITALS (11 sets, daily range): BP systolic 146–176; BP diastolic 65–76; PULSE 52–62; RESP 17–24
[2018-10-27] MEDS: PIPER-TAZO 2.25 GM/NS 50 ML IVPB SCH ×4 (01:02→17:36)
[2018-10-27] MEDS: LEVOTHYROXINE 50 MCG TAB GTB SCH (06:59)
[2018-10-27] MEDS: ALBUTEROL/IPRATROPIUM (NEB) 3 ML AMP HHN SCH ×3 (08:11→20:01)
[2018-10-27] MEDS: MAGNESIUM HYDROXIDE 30ML CUP GTB SCH (09:00)
[2018-10-27] MEDS: LACTULOSE 30ML CUP PO SCH ×3 (09:00→21:00)
[2018-10-27] MEDS: BUSPIRONE 5 MG TAB GTB SCH ×2 (09:00→21:00)
[2018-10-27] MEDS: FOLIC ACID 1 MG TAB GTB SCH (09:00)
[2018-10-27] MEDS: ESCITALOPRAM 10 MG TAB GTB SCH (09:00)
[2018-10-27] MEDS: FUROSEMIDE 20 MG INJ IV SCH ×2 (09:07→21:55)
[2018-10-27] MEDS: VANCOMYCIN 500 MG (PMX) 100 ML IVPB SCH (12:27)
--- NOTE | 2018-10-27 13:26 | PN ---
Date/Time of Note Date/Time of Note DATE: 10/27/18 TIME: 13:22 Assessment/Plan VTE Prophylaxis Risk score (from Ns)>0 risk: 10 SCD applied (from Ns): Yes Pharmacological prophylaxis: NA/contraindicated Pharm contraindication: thrombocytopenia Lines/Catheters IV [facility]from [facility] Saline Lock Urinary Cath still in place: Yes Reason Cath still needed: other (indicate) Assessment/Plan Hospital Course SUBJECTIVE: Remains afebrile. OBJECTIVE: Physical Exam General: Adequately build 88 year-old female lying in bed in mild to moderate respiratory distress. HEENT: Normocephalic, atraumatic. Eyes: Anicteric sclerae, conjunctivae clear. ENT: Nasal septum midline, oral mucosa is dry. Neck supple. Respiratory: Bilaterally diminished breath sounds. On BiPAP. Use of accessory muscles of respiration. Bilateral rhonchi. Cardiovascular: S1, S2 heard. Regular rate and rhythm. Abdomen: Soft, nontender, and nondistended. Dressing over the G-tube site. Genitourinary: Chris catheter in place.. Extremities: No cyanosis, no clubbing, no edema. Peripheral pulses palpable. Contractures in bilateral lower extremities. Neurologic: The patient is somnolent. Labs & Vitals per chart ASSESSMENT & PLAN 88 year old female with past medical history of hypertension, hyperlipidemia, hypothyroidism, dementia, dysphagia status post G-tube placement, and carotid artery disease. The patient lives at a shelter facility. The patient was transferred from the SNF because of tachypnea and dyspnea. She was found to have evidence of underlying sepsis with tachypnea, febrile illness, and lactic acidosis. The patient was admitted to inpatient setting for further treatment and evaluation. 1. Sepsis with underlying tachypnea, fevers, and lactic acidosis, present on admission, probably secondary to underlying urinary tract infection. Sepsis criteria: tachypnea, fevers, and lactic acidosis. Infectious source: Suspect UTI and aspiration pneumonitis. -Continue empiric antibiotics including coverage for anaerobes because of suspected aspiration. 2. UTI. -Urine culture positive for Gram-negative rods and Strep agalactiae both with colony count more than 100,000 CFU per millimeter. -Continue empiric antimicrobials. -Await final cultures. 3. Acute hypoxic respiratory failure. -Etiology unclear. -Continue the patient on inhaled bronchodilators (KAY). -Obtain 2D echocardiogram to evaluate for any underlying congestive heart failure. -Continue treatment for aspiration pneumonia. 4. Hypertension. -Continue the patient on appropriate antihypertensives. 5. Hypothyroidism. -Continue Synthroid. 6. Dysphagia. -Aspiration precautions. -N.p.o. 7. Dislodged G-tube. -Gastroenterology consult has been obtained. 8. Anemia. -Macrocytic -Etiology unclear -Monitor H&H closely. 9. Possible underlying congestive heart failure exacerbation, systolic versus diastolic dysfunction. -Pending 2D echocardiogram to evaluate the left ventricular ejection fraction. -Diuresis as clinically indicated. 10. Sinus bradycardia. -Etiology unclear. -Thyroid panel within normal limits. -Monitor. 11. Fluids, electrolytes, and nutrition. -N.p.o. -IV fluids. 12. DVT prophylaxis. -Bilateral SCDs. 13. Plan. -Continue empiric antimicrobials. -Continue diuresis. -Await 2D echocardiogram. -Await final cultures. The patient was seen in collaboration with Dr. Bryant. Result Diagram: 10/27/18 0546 10/27/18 0546 Results 24hrs Laboratory Tests Test 10/27/18 05:46 White Blood Count 2.7 #L Red Blood Count 2.80 L Hemoglobin 9.1 L Hematocrit 28.6 L Mean Corpuscular Volume 102.1 H Mean Corpuscular Hemoglobin 32.5 Mean Corpuscular Hemoglobin Concent 31.8 L Red Cell Distribution Width 18.1 H Platelet Count 113 #L Mean Platelet Volume 12.5 H Immature Granulocytes % 0.400 Neutrophils % 57.0 Lymphocytes % 19.3 Monocytes % 11.3 H Eosinophils % 11.3 H Basophils % 0.7 Nucleated Red Blood Cells % 0.0 Immature Granulocytes # 0.010 Neutrophils # 1.6 Lymphocytes # 0.5 L Monocytes # 0.3 Eosinophils # 0.3 Basophils # 0.0 Nucleated Red Blood Cells # 0.0 Sodium Level 142 Potassium Level 3.9 Chloride Level 112 H Carbon Dioxide Level 26 Anion Gap 4 L Blood Urea Nitrogen 31 H Creatinine 1.04 H Est Glomerular Filtrat Rate mL/min Glucose Level 71 Calcium Level 8.5 Phosphorus Level 3.4 Magnesium Level 2.4 Creatine Kinase < 20 L Creatine Kinase Index Creatinine Kinase MB (Mass) 1.01 Troponin I 0.051 Exam/Review of Systems Exam Vitals Vital Signs Date Temp Pulse Resp B/P (MAP) Pulse Ox O2 O2 Flow FiO2 Time Delivery Rate 4/21/19 59 12:00 10/27/18 97.6 22 169/72 94 11:28 (104) 10/27/18 Nasal 40 08:17 Cannula 10/25/18 10 09:12 Intake and Output 10/26/18 10/26/18 10/27/18 1515:00 23:00 07:00 IntakeIntake Total 50 ml 190 ml OutputOutput Total 1300 ml 600 ml BalanceBalance 50 ml -1110 ml -600 ml Results Results 24hrs Laboratory Tests Test 10/27/18 05:46 White Blood Count 2.7 #L Red Blood Count 2.80 L Hemoglobin 9.1 L Hematocrit 28.6 L Mean Corpuscular Volume 102.1 H Mean Corpuscular Hemoglobin 32.5 Mean Corpuscular Hemoglobin Concent 31.8 L Red Cell Distribution Width 18.1 H Platelet Count 113 #L Mean Platelet Volume 12.5 H Immature Granulocytes % 0.400 Neutrophils % 57.0 Lymphocytes % 19.3 Monocytes % 11.3 H Eosinophils % 11.3 H Basophils % 0.7 Nucleated Red Blood Cells % 0.0 Immature Granulocytes # 0.010 Neutrophils # 1.6 Lymphocytes # 0.5 L Monocytes # 0.3 Eosinophils # 0.3 Basophils # 0.0 Nucleated Red Blood Cells # 0.0 Sodium Level 142 Potassium Level 3.9 Chloride Level 112 H Carbon Dioxide Level 26 Anion Gap 4 L Blood Urea Nitrogen 31 H Creatinine 1.04 H Est Glomerular Filtrat Rate mL/min Glucose Level 71 Calcium Level 8.5 Phosphorus Level 3.4 Magnesium Level 2.4 Creatine Kinase < 20 L Creatine Kinase Index Creatinine Kinase MB (Mass) 1.01 Troponin I 0.051 Medications Medication Current Medications IV Flush (NS 3 ml) 3 ml PER PROTOCOL IV ; Start 10/25/18 at 14:30 Ondansetron HCl (Zofran Inj) 4 mg Q6H PRN IV NAUSEA/VOMITING; Start 10/25/18 at 14:30 Vancomycin HCl (Vanco Iv Per Pharmacy) VANCOMYCIN PER PHARMACY PER PROTOCOL XX ; Start 10/25/18 at 14:30 Albuterol/ Ipratropium (Duoneb) 3 ml Q6HWA RESP THERAPY HHN Last administered on 10/27/18at 08:11; Admin Dose 3 ML; Start 10/25/18 at 20:00 Albuterol/ Ipratropium (Duoneb) 3 ml Q2H RESP THERAPY PRN HHN Dyspnea; Start 10/25/18 at 14:30 Bisacodyl (Dulcolax Supp) 10 mg DAILY PRN [place] CONSTIPATION; Start 10/25/18 at 15:30 Escitalopram Oxalate (Lexapro) 10 mg DAILY GTB Last administered on 10/26/18 09:55; Admin Dose 10 MG; Start 10/26/18 at 09:00 Folic Acid (Folic Acid) 1 mg DAILY GTB Last administered on 10/26/18 09:54; Admin Dose 1 MG; Start 10/26/18 at 09:00 Lactulose (Enulose) 30 gm TID PO Last administered on 10/26/18 14:03; Admin Dose 30 GM; Start 10/25/18 at 21:00 Latanoprost (Xalatan) 1 drop QHS BOTH EYES Last administered on 10/26/18 21:00; Admin Dose 1 DROP; Start 10/25/18 at 21:00 Levothyroxine Sodium (Synthroid) 50 mcg BEFORE BREAKFAST GTB Last administered on 10/26/18 07:02; Admin Dose 50 MCG; Start 10/26/18 at 07:00 Magnesium Hydroxide (Milk Of Mag) 30 ml DAILY GTB Last administered on 10/26/18 09:54; Admin Dose 30 ML; Start 10/26/18 at 09:00 Sodium Biphosphate/ Sodium Phosphate (Fleet Enema) 133 ml DAILY PRN [place] CONSTIPATION; Start 10/25/18 at 15:30 Vancomycin HCl 100 ml @ 100 mls/hr Q24H IVPB Last administered on 10/27/18 12:27; Admin Dose 100 MLS/HR; Start 10/26/18 at 11:00 Piperacillin Sod/ Tazobactam Sod 50 ml @ 100 mls/hr Q6 IVPB Last administered on 10/27/18 11:47; Admin Dose 100 MLS/HR; Start 10/26/18 at 00:00 Atropine Sulfate (Atropine (Syringe)) 0.5 mg PRN PRN IV heart rate less than 35 ; Start 10/25/18 at 22:00 Buspirone HCl (Buspar) 5 mg BID GTB Last administered on 10/26/18 11:21; Admin Dose 5 MG; Start 10/26/18 at 11:00 Furosemide (Lasix) 40 mg BID IV ; Start 10/27/18 at 21:00 ADRIANE MAHMOOD NP Oct 27, 2018 13:26
--- NOTE | 2018-10-27 13:35 | CONS ---
DATE OF ADMISSION: 10/25/2018 DATE OF CONSULTATION: TYPE OF CONSULTATION: Pulmonary. REASON FOR CONSULTATION: Shortness of breath. Thank you, Dr. Dangelo, for this consultation. HISTORY OF PRESENT ILLNESS: This is an 88-year-old lady with history of hypertension, hyperlipidemia , dysphagia with G-tube, transferred from half-way facility for increasing respiratory distres s, on admission found to be febrile with lactic acidosis thought secondary to underlying urinary trac t infection. In addition, the patient was dyspneic with hypoxemia requiring initiation of high flow O2. PAST MEDICAL HISTORY: Includes dementia with dysphagia and G-tube, macrocytic anemia, hypothyroidism , essential hypertension. MEDICATIONS: Per chart. ALLERGIES: NONE. SOCIAL HISTORY: She is a nonsmoker, no alcohol, no history of drug use. FAMILY HISTORY: Noncontributory. SYSTEMS REVIEW: A 12-point review of systems is unable to perform. PHYSICAL EXAMINATION: GENERAL: Elderly-appearing lady, appears comfortable at rest on high flow O2. VITAL SIGNS: Currently afebrile, pulse is 58, blood pressure 169/72, O2 saturation 94% on FiO2 of 40 %. NECK: Supple. No JVD or lymphadenopathy. CARDIAC: S1, S2. II/ systolic ejection murmur. CHEST: Diminished air entry bilaterally. ABDOMEN: Soft, nontender. No guarding or rebound. EXTREMITIES: No cyanosis, clubbing, edema. NEUROLOGIC: Generalized weakness. LABORATORY DATA: White count 2.7, hemoglobin 9.1, platelets of 113. BUN 31, creatinine 1.04. Arter ial blood gas 2 days ago, pO2 was 82. DIAGNOSTIC DATA: Chest x-ray was reviewed, which demonstrated cardiomegaly with increased vascular c ongestion, possible right lower lobe infiltrate. IMPRESSION AND PLAN: 1. Severe sepsis secondary to possible aspiration pneumonia and urinary tract infection. 2. Advanced dementia. 3. Dysphagia with G-tube. 4. History of hypertension. The patient will require: 1. Continue antibiotics for urinary tract infection, pending culture susceptibility. 2. Aspiration precautions. 3. Decrease supplemental O2 as tolerated. 4. Address code status with next of kin. 5. DVT and GI prophylaxis. Dictated By: DIGNA ALANIS MD SV/DONNA Conf#: [id number] DID#: [id number] CC: MAAME SIMPSON; KINDRA DANGELO MD;*[facility]*
--- NOTE | 2018-10-27 14:24 | CONS ---
Assessment/Plan Assessment/Plan Hospital Course (Demo Recall) Assessment: Dysphagia status post prior G-tube, now dislodged Aspiration pneumonia Acute hypoxic respiratory failure, likely secondary to above. UTI HTN Possible CHF Hypothyroidism Anemia Plan: Will plan to endoscopic PEG tube replacement Sunday or Sunday. Discussed with patient's grandson Ricci Machado the benefits, alternatives, risks of procedure and he is agreeable to proceed. NPO Continue antibiotics Optimize respiratory status Patient seen in collaboration with Dr. See. CC: MAAME SEE MD ; Consultation Date/Type/Reason Admit Date/Time Date of Consultation: Oct 27, 2018 Type of Consult gastroenterology Reason for Consultation dislodged G tube Requesting Provider: ADRIANE MAHMOOD NP Date/Time of Note DATE: 10/27/18 TIME: 14:09 Hx of Present Illness 88 year old female with past medical history of hypertension, hyperlipidemia, hypothyroidism, dementia, dysphagia status post G-tube placement, and carotid artery disease. The [facility] at a [facility]. The patient was transferred from [facility] for increasing dyspnea and tachypnea. She was found to have possible aspiration pneumonia and underlying sepsis. Following transfer from the [facility] facility the patient was found to have the G-tube dislodged and is not completely out. Per discussed with the patient grandson Ricci Machado, she has had this G-tube for several years. History is limited due to patient's altered mental status, obtained from family and chart review. Subjective hx not possible: pt non-verbal Past Medical History Home Meds Reported Medications Magnesium Hydroxide* (Milk Of Magnesia*) 400 Mg/5 Ml Oral.susp, 30 ML GTB DAILY, ML 10/25/18 Bisacodyl (Dulcolax) 10 Mg Supp.rect, 10 MG RC DAILY PRN for CONSTIPATION, SUPP.RECT 10/25/18 Na Phos,M-B/Na Phos,Di-Ba (ENEMA [id number]) 133 Ml Enema, 133 ML RC EVERY 72 HOURS PRN for CONSTIPATION, ENEMA 10/25/18 Buspirone Hcl* (Buspirone Hcl*) 10 Mg Tab, 5 MG GTB BID, TAB 10/25/18 Escitalopram Oxalate* (Lexapro*) 10 Mg Tablet, 10 MG GTB DAILY, #30 TAB 10/25/18 Ferrous Sulfate* (Ferrous Sulfate*) 325 Mg Tabec, 325 MG GTB DAILY, TAB 10/25/18 Folic Acid* (Folic Acid*) 1 Mg Tablet, 1 MG GTB DAILY, TAB 10/25/18 Lactulose* (Lactulose*) 20 Gm/30 Ml Solution, 30 GM PO TID, ML 10/25/18 Latanoprost (Latanoprost) 2.5 Ml Drops, 1 DROP BOTH EYES QHS, #1 BOTTLE 10/25/18 Levothyroxine Sodium* (Levoxyl*) 50 Mcg Tablet, 50 MCG GTB BEFORE BREAKFAST, #30 TAB GIVE 30MIN PRIOR TO START OF GT FEEDING ON EMPTY STOMACH 10/25/18 Aspirin (Low Dose Aspirin) 81 Mg Tablet.dr, 81 MG GTB DAILY, #30 TAB 10/25/18 Amlodipine Besylate* (Norvasc*) 5 Mg Tablet, 5 MG GTB DAILY, TAB HOLD FOR SBP <110 10/25/18 Discontinued Reported Medications Latanoprost (Latanoprost) 2.5 Ml Drops, 1 DROP BOTH EYES QHS, #1 BOTTLE 01/17/16 Brimonidine/Timolol* (Combigan*) 10 Ml Drops, 1 DROP BOTH EYES BID, EA 01/17/16 Olmesartan Medoxomil (Benicar) 40 Mg Tablet, 40 MG PO DAILY, #30 TAB 01/17/16 Simvastatin (Simvastatin) 20 Mg Tablet, 20 MG PO DAILY, #30 TAB 01/17/16 Amlodipine Besylate* (Amlodipine Besylate*) 10 Mg Tablet, 10 MG PO DAILY, #30 TAB 01/17/16 Levothyroxine Sodium* (Levothyroxine Sodium*) 100 Mcg Tablet, 100 MCG PO BEFORE BREAKFAST, #30 TAB 01/17/16 Aspirin* (Aspirin* Chew) 81 Mg Tab.chew, 81 MG PO DAILY, TAB.CHEW 01/17/16 Discontinued Scripts Sulfamethoxazole-Trimethoprim* (Bactrim* DS) 800-160 Mg Tab, 1 TAB PO BID, #20 TAB Prov:MURPHYJOAN V. WARP HAND 01/20/16 Olanzapine* (Zyprexa*) 2.5 Mg Tablet, 2.5 MG PO DAILY for 30 Days, TAB Prov:MURPHYJOAN V. WARP HAND 01/20/16 Donepezil* (Aricept*) 5 Mg Tablet, 5 MG PO DAILY for 30 Days, TAB Prov:HAL MURPHYNATALI Sheikh WARP HAND 01/20/16 Medications Current Medications IV Flush (NS 3 ml) 3 ml PER PROTOCOL IV ; Start 10/25/18 at 14:30 Ondansetron HCl (Zofran Inj) 4 mg Q6H PRN IV NAUSEA/VOMITING; Start 10/25/18 at 14:30 Vancomycin HCl (Vanco Iv Per Pharmacy) VANCOMYCIN PER PHARMACY PER PROTOCOL XX ; Start 10/25/18 at 14:30 Albuterol/ Ipratropium (Duoneb) 3 ml Q6HWA RESP THERAPY HHN Last administered on 10/27/18 08:11; Admin Dose 3 ML; Start 10/25/18 at 20:00 Albuterol/ Ipratropium (Duoneb) 3 ml Q2H RESP THERAPY PRN HHN Dyspnea; Start 10/25/18 at 14:30 Bisacodyl (Dulcolax Supp) 10 mg DAILY PRN [place] CONSTIPATION; Start 10/25/18 at 15:30 Escitalopram Oxalate (Lexapro) 10 mg DAILY GTB Last administered on 10/26/18 09:55; Admin Dose 10 MG; Start 10/26/18 at 09:00 Folic Acid (Folic Acid) 1 mg DAILY GTB Last administered on 10/26/18 09:54; Admin Dose 1 MG; Start 10/26/18 at 09:00 Lactulose (Enulose) 30 gm TID PO Last administered on 10/26/18 14:03; Admin Dose 30 GM; Start 10/25/18 at 21:00 Latanoprost (Xalatan) 1 drop QHS BOTH EYES Last administered on 10/26/18 21:00; Admin Dose 1 DROP; Start 10/25/18 at 21:00 Levothyroxine Sodium (Synthroid) 50 mcg BEFORE BREAKFAST GTB Last administered on 10/26/18 07:02; Admin Dose 50 MCG; Start 10/26/18 at 07:00 Magnesium Hydroxide (Milk Of Mag) 30 ml DAILY GTB Last administered on 10/08 09:54; Admin Dose 30 ML; Start 10/26/18 at 09:00 Sodium Biphosphate/ Sodium Phosphate (Fleet Enema) 133 ml DAILY PRN [place] CONSTIPATION; Start 10/25/18 at 15:30 Vancomycin HCl 100 ml @ 100 mls/hr Q24H IVPB Last administered on 10/27/18at 12:27; Admin Dose 100 MLS/HR; Start 10/26/18 at 11:00 Piperacillin Sod/ Tazobactam Sod 50 ml @ 100 mls/hr Q6 IVPB Last administered on 10/27/18at 11:47; Admin Dose 100 MLS/HR; Start 10/26/18 at 00:00 Atropine Sulfate (Atropine (Syringe)) 0.5 mg PRN PRN IV heart rate less than 35 ; Start 10/25/18 at 22:00 Buspirone HCl (Buspar) 5 mg BID GTB Last administered on 10/26/18at 11:21; Admin Dose 5 MG; Start 10/26/18 at 11:00 Furosemide (Lasix) 40 mg BID IV ; Start 10/27/18 at 21:00 Miscellaneous Information (*Rx Drug Level Order Reminder*) VANCO TROUGH ON 10/08... 1000 ONCE XX ; Start 10/28/18 at 10:00; Stop 10/28/18 at 10:01 Dextrose/Sodium Chloride 1,000 ml @ 50 mls/hr Q20H IV ; Start 10/27/18 at 14:00 Allergies: Coded Allergies: No Known Allergy (Unverified , 10/25/18) Social History Alcohol Use: none Smoking Status: Never smoker Drug Use: none Exam/Review of Systems Exam Vitals Vital Signs Date Temp Pulse Resp B/P (MAP) Pulse Ox O2 O2 Flow FiO2 Time Delivery Rate 10/27/18 59 12:00 10/27/18 97.6 22 169/72 94 11:28 (104) 10/27/18 Nasal 40 08:17 Cannula 10/25/18 10 09:12 Intake and Output 10/26/18 10/26/18 10/27/18 1515:00 23:00 07:00 IntakeIntake Total 50 ml 190 ml OutputOutput Total 1300 ml 600 ml BalanceBalance 50 ml -1110 ml -600 ml Constitutional: non-verbal Psych: confusion Head: normocephalic, atraumatic Eyes: nl conjunctiva ENMT: nl external ears & nose, mucosa pink and moist Neck: supple Respiratory: clear to auscultation Cardiovascular: regular rate and rhythm Gastrointestinal: soft, other (prior g-tube tract noted mid abdomen, covered with gauze.) Musculoskeletal: nl extremities to inspection Extremities: normal pulses Results Result Diagram: 10/27/18 0546 10/27/18 0546 Results 24hrs Laboratory Tests Test 10/27/18 05:46 White Blood Count 2.7 #L Red Blood Count 2.80 L Hemoglobin 9.1 L Hematocrit 28.6 L Mean Corpuscular Volume 102.1 H Mean Corpuscular Hemoglobin 32.5 Mean Corpuscular Hemoglobin Concent 31.8 L Red Cell Distribution Width 18.1 H Platelet Count 113 #L Mean Platelet Volume 12.5 H Immature Granulocytes % 0.400 Neutrophils % 57.0 Lymphocytes % 19.3 Monocytes % 11.3 H Eosinophils % 11.3 H Basophils % 0.7 Nucleated Red Blood Cells % 0.0 Immature Granulocytes # 0.010 Neutrophils # 1.6 Lymphocytes # 0.5 L Monocytes # 0.3 Eosinophils # 0.3 Basophils # 0.0 Nucleated Red Blood Cells # 0.0 Sodium Level 142 Potassium Level 3.9 Chloride Level 112 H Carbon Dioxide Level 26 Anion Gap 4 L Blood Urea Nitrogen 31 H Creatinine 1.04 H Est Glomerular Filtrat Rate mL/min Glucose Level 71 Calcium Level 8.5 Phosphorus Level 3.4 Magnesium Level 2.4 Creatine Kinase < 20 L Creatine Kinase Index Creatinine Kinase MB (Mass) 1.01 Troponin I 0.051 Imaging Imaging CXR 10/25/18: IMPRESSION: Moderate cardiomegaly with pulmonary vascular congestion. Slightly more focal right lower lobe infiltrates. Medications Medication Current Medications IV Flush (NS 3 ml) 3 ml PER PROTOCOL IV ; Start 10/25/18 at 14:30 Ondansetron HCl (Zofran Inj) 4 mg Q6H PRN IV NAUSEA/VOMITING; Start 10/25/18 at 14:30 Vancomycin HCl (Vanco Iv Per Pharmacy) VANCOMYCIN PER PHARMACY PER PROTOCOL XX ; Start 10/25/18 at 14:30 Albuterol/ Ipratropium (Duoneb) 3 ml Q6HWA RESP THERAPY HHN Last administered on 10/27/18at 08:11; Admin Dose 3 ML; Start 10/25/18 at 20:00 Albuterol/ Ipratropium (Duoneb) 3 ml Q2H RESP THERAPY PRN HHN Dyspnea; Start 10/25/18 at 14:30 Bisacodyl (Dulcolax Supp) 10 mg DAILY PRN CO CONSTIPATION; Start 10/25/18 at 15:30 Escitalopram Oxalate (Lexapro) 10 mg DAILY GTB Last administered on 10/26/18at 09:55; Admin Dose 10 MG; Start 10/26/18 at 09:00 Folic Acid (Folic Acid) 1 mg DAILY GTB Last administered on 10/26/18 09:54; Admin Dose 1 MG; Start 10/26/18 at 09:00 Lactulose (Enulose) 30 gm TID PO Last administered on 10/26/18 14:03; Admin Dose 30 GM; Start 10/25/18 at 21:00 Latanoprost (Xalatan) 1 drop QHS BOTH EYES Last administered on 10/26/18 21:00; Admin Dose 1 DROP; Start 10/25/18 at 21:00 Levothyroxine Sodium (Synthroid) 50 mcg BEFORE BREAKFAST GTB Last administered on 10/26/18 07:02; Admin Dose 50 MCG; Start 10/26/18 at 07:00 Magnesium Hydroxide (Milk Of Mag) 30 ml DAILY GTB Last administered on 10/26/18 09:54; Admin Dose 30 ML; Start 10/26/18 at 09:00 Sodium Biphosphate/ Sodium Phosphate (Fleet Enema) 133 ml DAILY PRN CO CONSTIPATION; Start 10/25/18 at 15:30 Vancomycin HCl 100 ml @ 100 mls/hr Q24H IVPB Last administered on 10/27/18at 12:27; Admin Dose 100 MLS/HR; Start 10/26/18 at 11:00 Piperacillin Sod/ Tazobactam Sod 50 ml @ 100 mls/hr Q6 IVPB Last administered on 10/27/18at 11:47; Admin Dose 100 MLS/HR; Start 10/26/18 at 00:00 Atropine Sulfate (Atropine (Syringe)) 0.5 mg PRN PRN IV heart rate less than 35 ; Start 10/25/18 at 22:00 Buspirone HCl (Buspar) 5 mg BID GTB Last administered on 10/26/18 11:21; Admin Dose 5 MG; Start 10/26/18 at 11:00 Furosemide (Lasix) 40 mg BID IV ; Start 10/27/18 at 21:00 Miscellaneous Information (*Rx Drug Level Order Reminder*) VANCO TROUGH ON 10/08... 1000 ONCE XX ; Start 10/28/18 at 10:00; Stop 10/28/18 at 10:01 Dextrose/Sodium Chloride 1,000 ml @ 50 mls/hr Q20H IV ; Start 10/27/18 at 14:00 MATT AYALA NP Oct 27, 2018 14:24
[2018-10-27] MEDS: DEXTROSE 5%-0.45% NACL 1,000 ML IV SCH (16:19)
[2018-10-27] MEDS: LATANOPROST 0.005% 2.5 ML OPH BOTH EYES SCH (21:56)
[2018-10-28] VITALS (11 sets, daily range): BP systolic 153–173; BP diastolic 66–79; PULSE 48–58; RESP 18–20
[2018-10-28] MEDS: PIPER-TAZO 2.25 GM/NS 50 ML IVPB SCH ×4 (00:52→17:42)
[2018-10-28] MEDS: LEVOTHYROXINE 50 MCG TAB GTB SCH (07:00)
--- NOTE | 2018-10-28 07:28 | PN ---
Date/Time of Note Date/Time of Note DATE: 10/28/18 TIME: 07:26 Assessment/Plan VTE Prophylaxis Risk score (from Ns)>0 risk: 6 SCD applied (from Nsg): Yes Pharmacological prophylaxis: LMWH Lines/Catheters IV Catheter Type (from Nrs): Saline Lock Urinary Cath still in place: Yes Reason Cath still needed: other (indicate) Assessment/Plan Hospital Course SUBJECTIVE: Remains afebrile. Remains on high flow O2. OBJECTIVE: Physical Exam General: Adequately build 88 year-old female lying in bed in mild respiratory distress. HEENT: Normocephalic, atraumatic. Eyes: Anicteric sclerae, conjunctivae clear. ENT: Nasal septum midline, oral mucosa is dry. Neck supple. Respiratory: Bilaterally diminished breath sounds. On BiPAP. Use of accessory muscles of respiration. Bilateral rhonchi. Cardiovascular: S1, S2 heard. Regular rate and rhythm. Abdomen: Soft, nontender, and nondistended. Dressing over the G-tube site. Genitourinary: Chris catheter in place.. Extremities: No cyanosis, no clubbing, no edema. Peripheral pulses palpable. Contractures in bilateral lower extremities. Neurologic: The patient is somnolent. Labs & Vitals per chart ASSESSMENT & PLAN 88 year old female with past medical history of hypertension, hyperlipidemia, hypothyroidism, dementia, dysphagia status post G-tube placement, and carotid artery disease. [facility] because of tachypnea and dyspnea. She was found to have evidence of underlying sepsis with tachypnea, febrile illness, and lactic acidosis. The patient was admitted to inpatient setting for further treatment and evaluation. 1. Sepsis with underlying tachypnea, fevers, and lactic acidosis, present on admission, probably secondary to underlying urinary tract infection. Sepsis criteria: tachypnea, fevers, and lactic acidosis. Infectious source: Suspect UTI and aspiration pneumonitis. -Continue empiric antibiotics including coverage for anaerobes because of suspected aspiration. 2. UTI. -Urine culture positive for Gram-negative rods and Strep agalactiae both with colony count more than 100,000 CFU per millimeter. -Continue empiric antimicrobials. -Await final cultures. 3. Acute hypoxic respiratory failure. -Etiology unclear. -Continue the patient on inhaled bronchodilators (KAY). -Obtain 2D echocardiogram to evaluate for any underlying congestive heart failure. -Continue treatment for aspiration pneumonia. 4. Hypertension. -Continue the patient on appropriate antihypertensives. 5. Hypothyroidism. -Continue Synthroid. 6. Dysphagia. -Aspiration precautions. -N.p.o. 7. Dislodged G-tube. -Gastroenterology consult has been obtained. -Plan for re-insertion on 10/28/2018. 8. Anemia. -Macrocytic -Etiology unclear -Monitor H&H closely. 9. Possible underlying congestive heart failure exacerbation, systolic versus diastolic dysfunction. -Pending 2D echocardiogram to evaluate the left ventricular ejection fraction. -Diuresis as clinically indicated. 10. Sinus bradycardia. -Etiology unclear. -Thyroid panel within normal limits. -Monitor. 11. Fluids, electrolytes, and nutrition. -N.p.o. -IV fluids. 12. DVT prophylaxis. -Bilateral SCDs. -SQ LMWH. 13. Plan. -Continue empiric antimicrobials. -Continue diuresis. -Await 2D echocardiogram. -Await final cultures. The patient was seen in collaboration with Dr. Farrar. Result Diagram: 10/28/18 0610 10/28/18 0610 Results 24hrs Laboratory Tests Test 10/28/18 06:10 White Blood Count 2.7 L Red Blood Count 2.87 L Hemoglobin 9.3 L Hematocrit 29.6 L Mean Corpuscular Volume 103.1 H Mean Corpuscular Hemoglobin 32.4 Mean Corpuscular Hemoglobin Concent 31.4 L Red Cell Distribution Width 17.7 H Platelet Count 115 L Mean Platelet Volume 10.0 Immature Granulocytes % 0.400 Neutrophils % 55.6 Lymphocytes % 24.3 Monocytes % 12.3 H Eosinophils % 6.7 Basophils % 0.7 Nucleated Red Blood Cells % 0.0 Immature Granulocytes # 0.010 Neutrophils # 1.5 L Lymphocytes # 0.7 L Monocytes # 0.3 Eosinophils # 0.2 Basophils # 0.0 Nucleated Red Blood Cells # 0.0 Sodium Level 142 Potassium Level 3.4 L Chloride Level 111 H Carbon Dioxide Level 32 H Anion Gap -1 L Blood Urea Nitrogen 29 H Creatinine 1.07 H Est Glomerular Filtrat Rate mL/min Glucose Level 87 Calcium Level 8.8 Phosphorus Level 3.2 Magnesium Level 2.2 Exam/Review of Systems Exam Vitals Vital Signs Date Temp Pulse Resp B/P (MAP) Pulse Ox O2 O2 Flow FiO2 Time Delivery Rate 10/28/18 98.0 51 20 172/77 100 07:10 (108) 10/28/18 30 04:48 10/27/18 Nasal 20:00 Cannula 10/25/18 10 09:12 Intake and Output 10/27/18 10/27/18 10/28/18 1515:00 23:00 07:00 OutputOutput Total 1250 ml 1500 ml BalanceBalance -1250 ml -1500 ml Results Results 24hrs Laboratory Tests Test 10/28/18 06:10 White Blood Count 2.7 L Red Blood Count 2.87 L Hemoglobin 9.3 L Hematocrit 29.6 L Mean Corpuscular Volume 103.1 H Mean Corpuscular Hemoglobin 32.4 Mean Corpuscular Hemoglobin Concent 31.4 L Red Cell Distribution Width 17.7 H Platelet Count 115 L Mean Platelet Volume 10.0 Immature Granulocytes % 0.400 Neutrophils % 55.6 Lymphocytes % 24.3 Monocytes % 12.3 H Eosinophils % 6.7 Basophils % 0.7 Nucleated Red Blood Cells % 0.0 Immature Granulocytes # 0.010 Neutrophils # 1.5 L Lymphocytes # 0.7 L Monocytes # 0.3 Eosinophils # 0.2 Basophils # 0.0 Nucleated Red Blood Cells # 0.0 Sodium Level 142 Potassium Level 3.4 L Chloride Level 111 H Carbon Dioxide Level 32 H Anion Gap -1 L Blood Urea Nitrogen 29 H Creatinine 1.07 H Est Glomerular Filtrat Rate mL/min Glucose Level 87 Calcium Level 8.8 Phosphorus Level 3.2 Magnesium Level 2.2 Medications Medication Current Medications IV Flush (NS 3 ml) 3 ml PER PROTOCOL IV ; Start 10/25/18 at 14:30 Ondansetron HCl (Zofran Inj) 4 mg Q6H PRN IV NAUSEA/VOMITING; Start 10/25/18 at 14:30 Vancomycin HCl (Vanco Iv Per Pharmacy) VANCOMYCIN PER PHARMACY PER PROTOCOL XX ; Start 10/25/18 at 14:30 Albuterol/ Ipratropium (Duoneb) 3 ml Q6HWA RESP THERAPY HHN Last administered on 10/27/18at 20:01; Admin Dose 3 ML; Start 10/25/18 at 20:00 Albuterol/ Ipratropium (Duoneb) 3 ml Q2H RESP THERAPY PRN HHN Dyspnea; Start 10/25/18 at 14:30 Bisacodyl (Dulcolax Supp) 10 mg DAILY PRN [place] CONSTIPATION; Start 10/25/18 at 15:30 Escitalopram Oxalate (Lexapro) 10 mg DAILY GTB Last administered on 10/26/18 09:55; Admin Dose 10 MG; Start 10/26/18 at 09:00 Folic Acid (Folic Acid) 1 mg DAILY GTB Last administered on 10/26/18 09:54; Admin Dose 1 MG; Start 10/26/18 at 09:00 Lactulose (Enulose) 30 gm TID PO Last administered on 10/26/18 14:03; Admin Dose 30 GM; Start 10/25/18 at 21:00 Latanoprost (Xalatan) 1 drop QHS BOTH EYES Last administered on 10/27/18 21:56; Admin Dose 1 DROP; Start 10/25/18 at 21:00 Levothyroxine Sodium (Synthroid) 50 mcg BEFORE BREAKFAST GTB Last administered on 10/26/18 07:02; Admin Dose 50 MCG; Start 10/26/18 at 07:00 Magnesium Hydroxide (Milk Of Mag) 30 ml DAILY GTB Last administered on 10/26/18 09:54; Admin Dose 30 ML; Start 10/26/18 at 09:00 Sodium Biphosphate/ Sodium Phosphate (Fleet Enema) 133 ml DAILY PRN [place] CONSTIPATION; Start 10/25/18 at 15:30 Vancomycin HCl 100 ml @ 100 mls/hr Q24H IVPB Last administered on 10/27/18 12:27; Admin Dose 100 MLS/HR; Start 10/26/18 at 11:00 Piperacillin Sod/ Tazobactam Sod 50 ml @ 100 mls/hr Q6 IVPB Last administered on 10/28/18 06:14; Admin Dose 100 MLS/HR; Start 10/26/18 at 00:00 Atropine Sulfate (Atropine (Syringe)) 0.5 mg PRN PRN IV heart rate less than 35 ; Start 10/25/18 at 22:00 Buspirone HCl (Buspar) 5 mg BID GTB Last administered on 10/26/18 11:21; Admin Dose 5 MG; Start 10/26/18 at 11:00 Furosemide (Lasix) 40 mg BID IV Last administered on 10/27/18 21:55; Admin Dose 40 MG; Start 10/27/18 at 21:00 Miscellaneous Information (*Rx Drug Level Order Reminder*) VANCO TROUGH ON 10/08... 1000 ONCE XX ; Start 10/28/18 at 10:00; Stop 10/28/18 at 10:01 Dextrose/Sodium Chloride 1,000 ml @ 50 mls/hr Q20H IV Last administered on 10/27/18at 16:19; Admin Dose 50 MLS/HR; Start 10/27/18 at 14:00 ADRIANE MAHMOOD NP Oct 28, 2018 07:28
[2018-10-28] MEDS: ALBUTEROL/IPRATROPIUM (NEB) 3 ML AMP HHN SCH ×3 (07:52→22:07)
[2018-10-28] MEDS: ENOXAPARIN 30 MG/0.3 ML SYG SC SCH (09:00)
[2018-10-28] MEDS: MAGNESIUM HYDROXIDE 30ML CUP GTB SCH (09:00)
[2018-10-28] MEDS: FOLIC ACID 1 MG TAB GTB SCH (09:00)
[2018-10-28] MEDS: BUSPIRONE 5 MG TAB GTB SCH ×2 (09:00→20:28)
[2018-10-28] MEDS: ESCITALOPRAM 10 MG TAB GTB SCH (09:00)
[2018-10-28] MEDS: LACTULOSE 30ML CUP PO SCH ×3 (09:00→20:29)
[2018-10-28] MEDS: POTASSIUM CHLORIDE 100 ML IVPB SCH ×2 (09:02→14:01)
[2018-10-28] MEDS: FUROSEMIDE 20 MG INJ IV SCH ×2 (09:02→20:31)
[2018-10-28] MEDS: DEXTROSE 5%-0.45% NACL 1,000 ML IV SCH ×2 (10:00→16:37)
[2018-10-28] MEDS: VANCOMYCIN 500 MG (PMX) 100 ML IVPB SCH (12:24)
--- NOTE | 2018-10-28 12:33 | CONS ---
Consult Date/Type/Reason Admit Date/Time Oct 25, 2018 at 11:10 Initial Consult Date 10/27/18 Type of Consult Pulmonary Requesting Provider: ADRIANE MAHMOOD NP Date/Time of Note DATE: 10/28/18 TIME: 12:29 Subjective Patient remained stable. No new events. Continues high flow O2. Objective Vital Signs Date Temp Pulse Resp B/P (MAP) Pulse Ox O2 O2 Flow FiO2 Time Delivery Rate 10/28/18 99 25 11:30 10/28/18 98.5 58 20 173/74 11:06 (107) 10/28/18 Nasal 09:17 Cannula 10/25/18 10 09:12 Intake and Output 10/27/18 10/27/18 10/28/18 1515:00 23:00 07:00 OutputOutput Total 1250 ml 1500 ml BalanceBalance -1250 ml -1500 ml Exam PHYSICAL EXAMINATION: GENERAL: Elderly-appearing lady, appears comfortable at rest on high flow O2. VITAL SIGNS: NECK: Supple. No JVD or lymphadenopathy. CARDIAC: S1, S2. II/ systolic ejection murmur. CHEST: Diminished air entry bilaterally. ABDOMEN: Soft, nontender. No guarding or rebound. EXTREMITIES: No cyanosis, clubbing, edema. NEUROLOGIC: Generalized weakness. Vent Setting Fraction of Inspired Oxygen pe: 25 Results/Medications Result Diagram: 10/28/18 0610 10/28/18 0610 Results 24 hrs Laboratory Tests Test 10/28/18 06:10 10/28/18 07:00 10/28/18 10:01 White Blood Count 2.7 L Red Blood Count 2.87 L Hemoglobin 9.3 L Hematocrit 29.6 L Mean Corpuscular Volume 103.1 H Mean Corpuscular Hemoglobin 32.4 Mean Corpuscular 31.4 L Hemoglobin Concent Red Cell Distribution Width 17.7 H Platelet Count 115 L Mean Platelet Volume 10.0 Immature Granulocytes % 0.400 Neutrophils % 55.6 Lymphocytes % 24.3 Monocytes % 12.3 H Eosinophils % 6.7 Basophils % 0.7 Nucleated Red Blood Cells % 0.0 Immature Granulocytes # 0.010 Neutrophils # 1.5 L Lymphocytes # 0.7 L Monocytes # 0.3 Eosinophils # 0.2 Basophils # 0.0 Nucleated Red Blood Cells # 0.0 Sodium Level 142 Potassium Level 3.4 L Chloride Level 111 H Carbon Dioxide Level 32 H Anion Gap -1 L Blood Urea Nitrogen 29 H Creatinine 1.07 H Est Glomerular Filtrat Rate mL/min Glucose Level 87 Calcium Level 8.8 Phosphorus Level 3.2 Magnesium Level 2.2 Blood Gas Specimen Source Blood arterial Arterial Blood Date Drawn 10/28/2018 7:45:45 AM Arterial Blood pH 7.472 H (Temp corrected) Arterial Blood pCO2 47.8 H (Temp correct) Arterial Blood pO2 95.6 H (Temp corrected) Arterial Blood HCO3 34.2 H Arterial Blood Base Excess 9.4 H Arterial Blood 96.9 Oxygen Saturation Bahman Test ACCEPTAB Arterial Blood Gas Right Radial Puncture Site Arterial 0.6 Blood Carboxyhemoglobin Arterial Blood Methemoglobin 0.3 Blood Gas A-a O2 62.1 H Differential Oxyhemoglobin Percent 96.0 Blood Gas Temperature 37.0 Blood Gas Modality HFNC FiO2 30.0 Blood Gas Notified Whom SM Blood Gas Notified Time 10/28/2018 8:30:46 AM Vancomycin Level Trough 12.3 Medications Current Medications IV Flush (NS 3 ml) 3 ml PER PROTOCOL IV ; Start 10/25/18 at 14:30 Ondansetron HCl (Zofran Inj) 4 mg Q6H PRN IV NAUSEA/VOMITING; Start 10/25/18 at 14:30 Vancomycin HCl (Vanco Iv Per Pharmacy) VANCOMYCIN PER PHARMACY PER PROTOCOL XX ; Start 10/25/18 at 14:30 Albuterol/ Ipratropium (Duoneb) 3 ml Q6HWA RESP THERAPY HHN Last administered on 10/28/18at 07:52; Admin Dose 3 ML; Start 10/25/18 at 20:00 Albuterol/ Ipratropium (Duoneb) 3 ml Q2H RESP THERAPY PRN HHN Dyspnea; Start 10/25/18 at 14:30 Bisacodyl (Dulcolax Supp) 10 mg DAILY PRN [place] CONSTIPATION; Start 10/25/18 at 15:30 Escitalopram Oxalate (Lexapro) 10 mg DAILY GTB Last administered on 10/26/18at 09:55; Admin Dose 10 MG; Start 10/26/18 at 09:00 Folic Acid (Folic Acid) 1 mg DAILY GTB Last administered on 10/26/18at 09:54; Admin Dose 1 MG; Start 10/26/18 at 09:00 Lactulose (Enulose) 30 gm TID PO Last administered on 10/26/18 14:03; Admin Dose 30 GM; Start 10/25/18 at 21:00 Latanoprost (Xalatan) 1 drop QHS BOTH EYES Last administered on 10/27/18 21:56; Admin Dose 1 DROP; Start 10/25/18 at 21:00 Levothyroxine Sodium (Synthroid) 50 mcg BEFORE BREAKFAST GTB Last administered on 10/26/18 07:02; Admin Dose 50 MCG; Start 10/26/18 at 07:00 Magnesium Hydroxide (Milk Of Mag) 30 ml DAILY GTB Last administered on 10/26/18 09:54; Admin Dose 30 ML; Start 10/26/18 at 09:00 Sodium Biphosphate/ Sodium Phosphate (Fleet Enema) 133 ml DAILY PRN [place] CON STIPATION; Start 10/25/18 at 15:30 Vancomycin HCl 100 ml @ 100 mls/hr Q24H IVPB Last administered on 10/27/18 12:27; Admin Dose 100 MLS/HR; Start 10/26/18 at 11:00 Piperacillin Sod/ Tazobactam Sod 50 ml @ 100 mls/hr Q6 IVPB Last administered on 10/28/18 06:14; Admin Dose 100 MLS/HR; Start 10/26/18 at 00:00 Atropine Sulfate (Atropine (Syringe)) 0.5 mg PRN PRN IV heart rate less than 35 ; Start 10/25/18 at 22:00 Buspirone HCl (Buspar) 5 mg BID GTB Last administered on 10/26/18 11:21; Admin Dose 5 MG; Start 10/26/18 at 11:00 Furosemide (Lasix) 40 mg BID IV Last administered on 10/28/18 09:02; Admin Dose 40 MG; Start 10/27/18 at 21:00 Dextrose/Sodium Chloride 1,000 ml @ 50 mls/hr Q20H IV Last administered on 10/27/18 16:19; Admin Dose 50 MLS/HR; Start 10/27/18 at 14:00 Enoxaparin Sodium (Lovenox) 30 mg DAILY SC ; Start 10/28/18 at 09:00 Hydralazine HCl (Apresoline) 10 mg Q6H PRN IV SBP>160; Start 10/28/18 at 09:30 Assessment/Plan Hospital Course (Demo Recall) IMPRESSION 1. Severe sepsis secondary to possible aspiration pneumonia and urinary tract infection. 2. Advanced dementia. 3. Dysphagia with G-tube. 4. History of hypertension. Plan 1. Continue antibiotics for urinary tract infection, pending culture susceptibility. 2. Aspiration precautions. 3. Decrease supplemental O2 as tolerated. 4. Address code status with next of kin. 5. DVT and GI prophylaxis. Charbel carmona. DIGNA ALANIS MD, [facility] Oct 28, 2018 12:33
[2018-10-28] MEDS: hydrALAzine 20 MG INJ IV PRN (13:31)
--- NOTE | 2018-10-28 14:42 | RADRPT ---
Echocardiogram Report Patient Name: NEHAL REEDPatient ID: [id number] : 1930 (88y 3m)Study Date: 10/26/2018 10:07:15 AM Gender: FAccession #: [id number] Tech: Marcy Castro [facility] Location: [address] Ref.Physician: ADRIANE MAHMOOD Height(Cm): BSA: Weight(Kg): Quality: AdequateAccount #: Procedures: Echocardiographic Report: Transthoracic echocardiogram with complete 2D, M-Mode, and doppler examination. Indications: Evaluate Left Ventricular function. Measurements: 2D/M Mode Doppler Measurement Value Normal Range Measurement Value Normal Range LVIDd 2D 4.2 [ 3.8 - 5.2 ] cm AV Peak Hank 1.6 [ 100.0 - 170.0 ] cm/sec LVIDs 2D 3.1 [ 2.2 - 3.5 ] cm AV Peak PG 10.0 [ 2.0 - 9.0 ] mmHg LVPWd 2D 1.0 [ 0.6 - 0.9 ] cm LVOT Peak Hank 1.1 [ 70.0 - 110.0 ] cm/sec IVSd 2D 0.8 [ 0.6 - 0.9 ] cm LVOT Peak PG 5.0 [ 2.0 - 6.0 ] mmHg IVS/LVPW 2D 0.9 ratio MV E Peak Hank 0.9 [ 60.0 - 130.0 ] cm/sec AoR Diam 2D 3.0 [ 2.3 - 3.1 ] cm MV A Peak Hank 0.8 [ 100.0 - 120.0 ] cm/sec LA/Ao 2D 1 ratio MV E/A 1.0 [ 0.8 - 1.5 ] ratio LA Dimen 2D 3.1 [ 2.7 - 3.8 ] cm MV Decel Time 56 [ 104 - 258 ] msec Lat E` Hank 0.1 [ 10.0 - 15.0 ] cm/sec Med E` Hank 0.0 cm/sec MV E/A 1.0 [ 0.8 - 1.5 ] ratio TR Peak Hank 2.8 [ 100.0 - 280.0 ] cm/sec TR Peak PG 32.0 mmHg RVSP 35.0 [ 10.0 - 36.0 ] mmHg RA Pressure 3.0 mmHg Findings: Left Ventricle: Normal left ventricular systolic function. Normal left ventricular cavity size. Normal left ventricular wall thickness. Ejection fraction is visually estimated at 55-60 %. Tissue Doppler/Mitral Doppler indices are consistent with pseudonormalization with mildly elevated left atrial pressure (Stage II diastolic dysfunction). Right Ventricle: Normal right ventricular size. Normal right ventricular systolic function. Left Atrium: The left atrium is normal in size. Right Atrium: The right atrium is normal in size. Not well visualized. Ventricular septum: Normal/intact ventricular septum. Mitral Valve: Mild mitral annular calcification. Moderate mitral valve regurgitation. Aortic Valve: No hemodynamically significant aortic stenosis by doppler. Aortic cusps appear mildly calcified. Mild to moderate aortic valve regurgitation. Tricuspid Valve: Normal appearance of the tricuspid valve. Estimated peak PA systolic pressure 35 mmHg. There is moderate tricuspid regurgitation. Pulmonic Valve: Normal pulmonic valve appearance. There is trace pulmonic regurgitation. Pericardium: Normal pericardium with no significant pericardial effusion. Pleural effusion seen. Aorta: Normal aortic root. IVC: Normal size and normal respiratory collapse consistent with normal right atrial pressure. Conclusions: Normal left ventricular systolic function. Normal left ventricular cavity size. Normal left ventricular wall thickness. Ejection fraction is visually estimated at 55-60 %. Tissue Doppler/Mitral Doppler indices are consistent with pseudonormalization with mildly elevated left atrial pressure (Stage II diastolic dysfunction). Normal right ventricular size. Normal right ventricular systolic function. The left atrium is normal in size. The right atrium is normal in size. Not well visualized. Moderate mitral valve regurgitation. No hemodynamically significant aortic stenosis by doppler. Mild to moderate aortic valve regurgitation. Estimated peak PA systolic pressure 35 mmHg. There is moderate tricuspid regurgitation. Normal pericardium with no significant pericardial effusion. Pleural effusion seen. Electronically Signed By: Lon Marroquin 2018-10-28 14:42:03 PDT
--- NOTE | 2018-10-28 15:21 | QN ---
Documentation Comment Gastroenterology Brief Note: Patient was scheduled for G-tube placement today. Pt non communicative. Respiratory distress persists. Pt is on 30L high flow oxygen for her aspiration pneumonia. Severe sepsis on Abx treatment. Given her tenuous breathing situation, she likely will NOT come off mechanical ventilation and remain intubated for an elective procedure. Pt is 88 years old and has multiple comorbidities. Patient will need to be optimized and receive further treatment for her pneumonia and sepsis before G-tube placement. 2D Echo planned to evaluate patient for CHF. Will be on standby and reattempt G-tube placement tomorrow IF she is further optimized. BERNIE YOST Oct 28, 2018 15:21
[2018-10-28] MEDS: LATANOPROST 0.005% 2.5 ML OPH BOTH EYES SCH (20:30)
[2018-10-29] VITALS (13 sets, daily range): BP systolic 104–182; BP diastolic 47–72; PULSE 47–64; RESP 18–22
[2018-10-29] MEDS: PIPER-TAZO 2.25 GM/NS 50 ML IVPB SCH ×5 (01:14→23:12)
[2018-10-29] MEDS: DEXTROSE 5%-0.45% NACL 1,000 ML IV SCH (05:30)
[2018-10-29] MEDS: LEVOTHYROXINE 50 MCG TAB GTB SCH (05:30)
[2018-10-29] MEDS: ALBUTEROL/IPRATROPIUM (NEB) 3 ML AMP HHN SCH ×3 (07:41→20:39)
[2018-10-29] MEDS: LACTULOSE 30ML CUP PO SCH ×3 (09:00→20:43)
[2018-10-29] MEDS: FOLIC ACID 1 MG TAB GTB SCH (09:00)
[2018-10-29] MEDS: BUSPIRONE 5 MG TAB GTB SCH ×2 (09:00→20:43)
[2018-10-29] MEDS: MAGNESIUM HYDROXIDE 30ML CUP GTB SCH (09:00)
[2018-10-29] MEDS: ESCITALOPRAM 10 MG TAB GTB SCH (09:00)
[2018-10-29] MEDS: FUROSEMIDE 20 MG INJ IV SCH ×2 (09:20→20:44)
[2018-10-29] MEDS: hydrALAzine 20 MG INJ IV PRN (09:21)
[2018-10-29] MEDS: ENOXAPARIN 30 MG/0.3 ML SYG SC SCH (09:30)
--- NOTE | 2018-10-29 10:53 | PN ---
Date/Time of Note Date/Time of Note DATE: 10/29/18 TIME: 10:52 Assessment/Plan VTE Prophylaxis Risk score (from Nsg)>0 risk: 4 SCD applied (from Nsg): Yes Pharmacological prophylaxis: other (scds) Lines/Catheters IV Catheter Type (from Nrsg): Peripheral IV Urinary Cath still in place: Yes Reason Cath still needed: other (indicate) (monitor output) Assessment/Plan Hospital Course Assessment: Dysphagia status post prior G-tube, now dislodged Aspiration pneumonia Acute hypoxic respiratory failure, likely secondary to above. UTI HTN Possible CHF Hypothyroidism Anemia Plan: Will plan to proceed with endoscopic PEG tube replacement when patient medially optimized- which after speaking with some of the medical will likely be tomorrow. We will hold Lovenox in am in preparation for PEG placement. GI team discussed plan with patient's grandson Ricci Machado, including benefits, alternatives, risks of procedure. he is agreeable to proceed. NPO Continue antibiotics Optimize respiratory status Patient seen in collaboration with Dr. See. Subjective: Course reviewed with nursing staff Patient interviewed and examined All labs, imaging and other results reviewed The patient is currently on O2 4 liters, no apprent distess, CXR- reviewed- possible plan for thoracentesis today Constitutional: non-verbal Psych: confusion Head: normocephalic, atraumatic Eyes: nl conjunctiva ENMT: nl external ears & nose, mucosa pink and moist Neck: supple Respiratory: clear to auscultation Cardiovascular: regular rate and rhythm Gastrointestinal: soft, other (prior g-tube tract noted mid abdomen, covered with gauze.) Musculoskeletal: nl extremities to inspection Extremities: normal pulses Result Diagram: 10/29/18 0506 10/29/18 0506 Results 24hrs Laboratory Tests Test 10/29/18 05:06 White Blood Count 2.6 L Red Blood Count 3.34 L Hemoglobin 10.9 L Hematocrit 34.5 L Mean Corpuscular Volume 103.3 H Mean Corpuscular Hemoglobin 32.6 Mean Corpuscular Hemoglobin Concent 31.6 L Red Cell Distribution Width 17.9 H Platelet Count 98 L Mean Platelet Volume 10.0 Immature Granulocytes % 0.400 Neutrophils % 51.8 Lymphocytes % 28.7 Monocytes % 11.5 H Eosinophils % 6.5 Basophils % 1.1 Nucleated Red Blood Cells % 0.0 Immature Granulocytes # 0.010 Neutrophils # 1.4 L Lymphocytes # 0.8 Monocytes # 0.3 Eosinophils # 0.2 Basophils # 0.0 Nucleated Red Blood Cells # 0.0 Sodium Level 144 Potassium Level 3.7 Chloride Level 109 Carbon Dioxide Level 33 H Anion Gap 2 L Blood Urea Nitrogen 27 H Creatinine 1.09 H Est Glomerular Filtrat Rate mL/min Glucose Level 84 Calcium Level 8.8 Phosphorus Level 3.0 Magnesium Level 2.2 Exam/Review of Systems Exam Vitals Vital Signs Date Temp Pulse Resp B/P (MAP) Pulse Ox O2 O2 Flow FiO2 Time Delivery Rate 10/29/18 100 4.0 09:48 10/29/18 53 168/69 09:06 (102) 10/29/18 20 Nasal 07:44 Cannula 10/29/18 97.3 07:11 10/29/18 25 05:46 Intake and Output 10/28/18 10/28/18 10/29/18 1515:00 23:00 07:00 IntakeIntake Total 600 ml OutputOutput Total 2000 ml 3400 ml BalanceBalance -2000 ml -2800 ml Results Results 24hrs Laboratory Tests Test 10/29/18 05:06 White Blood Count 2.6 L Red Blood Count 3.34 L Hemoglobin 10.9 L Hematocrit 34.5 L Mean Corpuscular Volume 103.3 H Mean Corpuscular Hemoglobin 32.6 Mean Corpuscular Hemoglobin Concent 31.6 L Red Cell Distribution Width 17.9 H Platelet Count 98 L Mean Platelet Volume 10.0 Immature Granulocytes % 0.400 Neutrophils % 51.8 Lymphocytes % 28.7 Monocytes % 11.5 H Eosinophils % 6.5 Basophils % 1.1 Nucleated Red Blood Cells % 0.0 Immature Granulocytes # 0.010 Neutrophils # 1.4 L Lymphocytes # 0.8 Monocytes # 0.3 Eosinophils # 0.2 Basophils # 0.0 Nucleated Red Blood Cells # 0.0 Sodium Level 144 Potassium Level 3.7 Chloride Level 109 Carbon Dioxide Level 33 H Anion Gap 2 L Blood Urea Nitrogen 27 H Creatinine 1.09 H Est Glomerular Filtrat Rate mL/min Glucose Level 84 Calcium Level 8.8 Phosphorus Level 3.0 Magnesium Level 2.2 Medications Medication Current Medications IV Flush (NS 3 ml) 3 ml PER PROTOCOL IV ; Start 10/25/18 at 14:30 Ondansetron HCl (Zofran Inj) 4 mg Q6H PRN IV NAUSEA/VOMITING; Start 10/25/18 at 14:30 Vancomycin HCl (Vanco Iv Per Pharmacy) VANCOMYCIN PER PHARMACY PER PROTOCOL XX ; Start 10/25/18 at 14:30 Albuterol/ Ipratropium (Duoneb) 3 ml Q6HWA RESP THERAPY HHN Last administered on 10/29/18at 07:41; Admin Dose 3 ML; Start 10/25/18 at 20:00 Albuterol/ Ipratropium (Duoneb) 3 ml Q2H RESP THERAPY PRN HHN Dyspnea; Start 10/25/18 at 14:30 Bisacodyl (Dulcolax Supp) 10 mg DAILY PRN [place] CONSTIPATION; Start 10/25/18 at 15:30 Escitalopram Oxalate (Lexapro) 10 mg DAILY GTB Last administered on 10/26/18at 09:55; Admin Dose 10 MG; Start 10/26/18 at 09:00 Folic Acid (Folic Acid) 1 mg DAILY GTB Last administered on 10/26/18 09:54; Admin Dose 1 MG; Start 10/26/18 at 09:00 Lactulose (Enulose) 30 gm TID PO Last administered on 10/26/18 14:03; Admin Dose 30 GM; Start 10/25/18 at 21:00 Latanoprost (Xalatan) 1 drop QHS BOTH EYES Last administered on 10/28/18at 20:30; Admin Dose 1 DROP; Start 10/25/18 at 21:00 Levothyroxine Sodium (Synthroid) 50 mcg BEFORE BREAKFAST GTB Last administered on 10/26/18 07:02; Admin Dose 50 MCG; Start 10/26/18 at 07:00 Magnesium Hydroxide (Milk Of Mag) 30 ml DAILY GTB Last administered on 10/26/18 09:54; Admin Dose 30 ML; Start 10/26/18 at 09:00 Sodium Biphosphate/ Sodium Phosphate (Fleet Enema) 133 ml DAILY PRN [place] CON STIPATION; Start 10/25/18 at 15:30 Vancomycin HCl 100 ml @ 100 mls/hr Q24H IVPB Last administered on 10/28/18at 12:24; Admin Dose 100 MLS/HR; Start 10/26/18 at 11:00 Piperacillin Sod/ Tazobactam Sod 50 ml @ 100 mls/hr Q6 IVPB Last administered on 10/29/18 05:30; Admin Dose 100 MLS/HR; Start 10/26/18 at 00:00 Atropine Sulfate (Atropine (Syringe)) 0.5 mg PRN PRN IV heart rate less than 35 ; Start 10/25/18 at 22:00 Buspirone HCl (Buspar) 5 mg BID GTB Last administered on 10/26/18 11:21; Admin Dose 5 MG; Start 10/26/18 at 11:00 Furosemide (Lasix) 40 mg BID IV Last administered on 10/29/18 09:20; Admin Dose 40 MG; Start 10/27/18 at 21:00 Enoxaparin Sodium (Lovenox) 30 mg DAILY SC Last administered on 10/29/18 09:30; Admin Dose 30 MG; Start 10/28/18 at 09:00 Hydralazine HCl (Apresoline) 10 mg Q6H PRN IV SBP>160 Last administered on 10/29/18 09:21; Admin Dose 10 MG; Start 10/28/18 at 09:30 LAURA CARTER Oct 29, 2018 10:53
--- NOTE | 2018-10-29 11:59 | CONS ---
Consult Date/Type/Reason Admit Date/Time Oct 25, 2018 at 11:10 Initial Consult Date 10/27/18 Type of Consult Pulmonary Requesting Provider: ADRIANE MAHMOOD NP Date/Time of Note DATE: 10/29/18 TIME: 11:57 Subjective Patient comfortable this morning no respiratory distress. On 5 L nasal cannula still somewhat agitated.Pending PEG tube placement tomorrow. Objective Vital Signs Date Temp Pulse Resp B/P (MAP) Pulse Ox O2 O2 Flow FiO2 Time Delivery Rate 10/29/18 97.6 57 19 128/58 100 Nasal 11:36 (81) Cannula 10/29/18 4.0 09:48 10/29/18 25 05:46 Intake and Output 10/28/18 10/28/18 10/29/18 1515:00 23:00 07:00 IntakeIntake Total 600 ml OutputOutput Total 2000 ml 3400 ml BalanceBalance -2000 ml -2800 ml Exam PHYSICAL EXAMINATION: GENERAL: Elderly-appearing lady, appears comfortable at rest on high flow O2. VITAL SIGNS: NECK: Supple. No JVD or lymphadenopathy. CARDIAC: S1, S2. II/ systolic ejection murmur. CHEST: Diminished air entry bilaterally. ABDOMEN: Soft, nontender. No guarding or rebound. EXTREMITIES: No cyanosis, clubbing, edema. NEUROLOGIC: Generalized weakness. Vent Setting Fraction of Inspired Oxygen pe: 25 Results/Medications Result Diagram: 10/29/18 0506 10/29/18 0506 Results 24 hrs Laboratory Tests Test 10/29/18 05:06 White Blood Count 2.6 L Red Blood Count 3.34 L Hemoglobin 10.9 L Hematocrit 34.5 L Mean Corpuscular Volume 103.3 H Mean Corpuscular Hemoglobin 32.6 Mean Corpuscular Hemoglobin Concent 31.6 L Red Cell Distribution Width 17.9 H Platelet Count 98 L Mean Platelet Volume 10.0 Immature Granulocytes % 0.400 Neutrophils % 51.8 Lymphocytes % 28.7 Monocytes % 11.5 H Eosinophils % 6.5 Basophils % 1.1 Nucleated Red Blood Cells % 0.0 Immature Granulocytes # 0.010 Neutrophils # 1.4 L Lymphocytes # 0.8 Monocytes # 0.3 Eosinophils # 0.2 Basophils # 0.0 Nucleated Red Blood Cells # 0.0 Sodium Level 144 Potassium Level 3.7 Chloride Level 109 Carbon Dioxide Level 33 H Anion Gap 2 L Blood Urea Nitrogen 27 H Creatinine 1.09 H Est Glomerular Filtrat Rate mL/min Glucose Level 84 Calcium Level 8.8 Phosphorus Level 3.0 Magnesium Level 2.2 Medications Current Medications IV Flush (NS 3 ml) 3 ml PER PROTOCOL IV ; Start 10/25/18 at 14:30 Ondansetron HCl (Zofran Inj) 4 mg Q6H PRN IV NAUSEA/VOMITING; Start 10/25/18 at 14:30 Vancomycin HCl (Vanco Iv Per Pharmacy) VANCOMYCIN PER PHARMACY PER PROTOCOL XX ; Start 10/25/18 at 14:30 Albuterol/ Ipratropium (Duoneb) 3 ml Q6HWA RESP THERAPY HHN Last administered on 10/29/18 07:41; Admin Dose 3 ML; Start 10/25/18 at 20:00 Albuterol/ Ipratropium (Duoneb) 3 ml Q2H RESP THERAPY PRN HHN Dyspnea; Start 10/25/18 at 14:30 Bisacodyl (Dulcolax Supp) 10 mg DAILY PRN [place] CONSTIPATION; Start 10/25/18 at 15:30 Escitalopram Oxalate (Lexapro) 10 mg DAILY GTB Last administered on 10/26/18 09:55; Admin Dose 10 MG; Start 10/26/18 at 09:00 Folic Acid (Folic Acid) 1 mg DAILY GTB Last administered on 10/26/18 09:54; Admin Dose 1 MG; Start 10/26/18 at 09:00 Lactulose (Enulose) 30 gm TID PO Last administered on 10/26/18 14:03; Admin Dose 30 GM; Start 10/25/18 at 21:00 Latanoprost (Xalatan) 1 drop QHS BOTH EYES Last administered on 10/28/18 20:30; Admin Dose 1 DROP; Start 10/25/18 at 21:00 Levothyroxine Sodium (Synthroid) 50 mcg BEFORE BREAKFAST GTB Last administered on 10/26/18 07:02; Admin Dose 50 MCG; Start 10/26/18 at 07:00 Magnesium Hydroxide (Milk Of Mag) 30 ml DAILY GTB Last administered on 10/26/18 09:54; Admin Dose 30 ML; Start 10/26/18 at 09:00 Sodium Biphosphate/ Sodium Phosphate (Fleet Enema) 133 ml DAILY PRN [place] CONSTIPATION; Start 10/25/18 at 15:30 Vancomycin HCl 100 ml @ 100 mls/hr Q24H IVPB Last administered on 10/28/18 12:24; Admin Dose 100 MLS/HR; Start 10/26/18 at 11:00 Piperacillin Sod/ Tazobactam Sod 50 ml @ 100 mls/hr Q6 IVPB Last administered on 10/29/18 05:30; Admin Dose 100 MLS/HR; Start 10/26/18 at 00:00 Atropine Sulfate (Atropine (Syringe)) 0.5 mg PRN PRN IV heart rate less than 35 ; Start 10/25/18 at 22:00 Buspirone HCl (Buspar) 5 mg BID GTB Last administered on 10/26/18 11:21; Admin Dose 5 MG; Start 10/26/18 at 11:00 Furosemide (Lasix) 40 mg BID IV Last administered on 10/29/18 09:20; Admin Dose 40 MG; Start 10/27/18 at 21:00 Enoxaparin Sodium (Lovenox) 30 mg DAILY SC Last administered on 10/29/18 09:30; Admin Dose 30 MG; Start 10/28/18 at 09:00; Status Future hold Hydralazine HCl (Apresoline) 10 mg Q6H PRN IV SBP>160 Last administered on 10/29/18 09:21; Admin Dose 10 MG; Start 10/28/18 at 09:30 Assessment/Plan Hospital Course (Demo Recall) IMPRESSION 1. Severe sepsis secondary to possible aspiration pneumonia and urinary tract infection. 2. Advanced dementia. 3. Dysphagia 4. History of hypertension. 5. Hypoxemic respiratory failure with pneumonia and probable right pleural effusion. Plan 1. Continue antibiotics for urinary tract infection, pending culture sampson sceptibility. 2. Aspiration precautions. 3. Decrease supplemental O2 as tolerated. Right thoracentesis 4. Address code status with next of kin. 5. DVT and GI prophylaxis. Barger eval. Patient stable to proceed with PEG tube from pulmonary standpoint. Oxygenation has been improving daily. DIGNA ALANIS MD, [facility] Oct 29, 2018 11:59
--- NOTE | 2018-10-29 13:40 | PN ---
Date/Time of Note Date/Time of Note DATE: 10/29/18 TIME: 13:37 Assessment/Plan VTE Prophylaxis Risk score (from Nsg)>0 risk: 4 SCD applied (from Nsg): Yes Pharmacological prophylaxis: heparin Lines/Catheters IV Catheter Type (from Nrsg): Peripheral IV Urinary Cath still in place: Yes Reason Cath still needed: urinary retention Assessment/Plan Hospital Course 88 year old female with past medical history of hypertension, hyperlipidemia, hypothyroidism, dementia, dysphagia status post G-tube placement, and carotid artery disease. The patient lives at a half-way facility. The patient was transferred from the SNF because of tachypnea and dyspnea. She was found to have evidence of underlying sepsis with tachypnea, febrile illness, and lactic acidosis as well as acute diastolic CHF exacerbation Acute diastolic CHF with acute hypoxic respiratory failure: - Continue diuresis, monitor creatinine Sepsis: - Continue vanco/zoysn - thoracentesis per pulmonary Hypertension. -Continue the patient on appropriate antihypertensives. Hypothyroidism. -Continue Synthroid. Dysphagia. - Replace G tube tomorrow DC plan: to SNF following improvement of respiratory status and G tube replacement Result Diagram: 10/29/18 0506 10/29/18 0506 Results 24hrs Laboratory Tests Test 10/29/18 05:06 White Blood Count 2.6 L Red Blood Count 3.34 L Hemoglobin 10.9 L Hematocrit 34.5 L Mean Corpuscular Volume 103.3 H Mean Corpuscular Hemoglobin 32.6 Mean Corpuscular Hemoglobin Concent 31.6 L Red Cell Distribution Width 17.9 H Platelet Count 98 L Mean Platelet Volume 10.0 Immature Granulocytes % 0.400 Neutrophils % 51.8 Lymphocytes % 28.7 Monocytes % 11.5 H Eosinophils % 6.5 Basophils % 1.1 Nucleated Red Blood Cells % 0.0 Immature Granulocytes # 0.010 Neutrophils # 1.4 L Lymphocytes # 0.8 Monocytes # 0.3 Eosinophils # 0.2 Basophils # 0.0 Nucleated Red Blood Cells # 0.0 Sodium Level 144 Potassium Level 3.7 Chloride Level 109 Carbon Dioxide Level 33 H Anion Gap 2 L Blood Urea Nitrogen 27 H Creatinine 1.09 H Est Glomerular Filtrat Rate mL/min Glucose Level 84 Calcium Level 8.8 Phosphorus Level 3.0 Magnesium Level 2.2 Subjective 24 Hr Interval Summary Free Text/Dictation Breathign comfortably Doing well Awaiting PEG tube Exam/Review of Systems Exam Vitals Vital Signs Date Temp Pulse Resp B/P (MAP) Pulse Ox O2 O2 Flow FiO2 Time Delivery Rate 10/29/18 53 12:00 10/29/18 97.6 19 128/58 100 Nasal 11:36 (81) Cannula 10/29/18 4.0 09:48 10/29/18 25 05:46 Intake and Output 10/28/18 10/28/18 10/29/18 1515:00 23:00 07:00 IntakeIntake Total 600 ml OutputOutput Total 2000 ml 3400 ml BalanceBalance -2000 ml -2800 ml Exam Elderly woman Resting in no distress Dementia evident Breahting comfortably Results Results 24hrs Laboratory Tests Test 10/29/18 05:06 White Blood Count 2.6 L Red Blood Count 3.34 L Hemoglobin 10.9 L Hematocrit 34.5 L Mean Corpuscular Volume 103.3 H Mean Corpuscular Hemoglobin 32.6 Mean Corpuscular Hemoglobin Concent 31.6 L Red Cell Distribution Width 17.9 H Platelet Count 98 L Mean Platelet Volume 10.0 Immature Granulocytes % 0.400 Neutrophils % 51.8 Lymphocytes % 28.7 Monocytes % 11.5 H Eosinophils % 6.5 Basophils % 1.1 Nucleated Red Blood Cells % 0.0 Immature Granulocytes # 0.010 Neutrophils # 1.4 L Lymphocytes # 0.8 Monocytes # 0.3 Eosinophils # 0.2 Basophils # 0.0 Nucleated Red Blood Cells # 0.0 Sodium Level 144 Potassium Level 3.7 Chloride Level 109 Carbon Dioxide Level 33 H Anion Gap 2 L Blood Urea Nitrogen 27 H Creatinine 1.09 H Est Glomerular Filtrat Rate mL/min Glucose Level 84 Calcium Level 8.8 Phosphorus Level 3.0 Magnesium Level 2.2 Medications Medication Current Medications IV Flush (NS 3 ml) 3 ml PER PROTOCOL IV ; Start 10/25/18 at 14:30 Ondansetron HCl (Zofran Inj) 4 mg Q6H PRN IV NAUSEA/VOMITING; Start 10/25/18 at 14:30 Vancomycin HCl (Vanco Iv Per Pharmacy) VANCOMYCIN PER PHARMACY PER PROTOCOL XX ; Start 10/25/18 at 14:30 Albuterol/ Ipratropium (Duoneb) 3 ml Q6HWA RESP THERAPY HHN Last administered on 10/29/18at 07:41; Admin Dose 3 ML; Start 10/25/18 at 20:00 Albuterol/ Ipratropium (Duoneb) 3 ml Q2H RESP THERAPY PRN HHN Dyspnea; Start 10/25/18 at 14:30 Bisacodyl (Dulcolax Supp) 10 mg DAILY PRN [place] CONSTIPATION; Start 10/25/18 at 15:30 Escitalopram Oxalate (Lexapro) 10 mg DAILY GTB Last administered on 10/26/18 09:55; Admin Dose 10 MG; Start 10/26/18 at 09:00 Folic Acid (Folic Acid) 1 mg DAILY GTB Last administered on 10/26/18 09:54; Admin Dose 1 MG; Start 10/26/18 at 09:00 Lactulose (Enulose) 30 gm TID PO Last administered on 10/26/18 14:03; Admin Dose 30 GM; Start 10/25/18 at 21:00 Latanoprost (Xalatan) 1 drop QHS BOTH EYES Last administered on 10/28/18 20:30; Admin Dose 1 DROP; Start 10/25/18 at 21:00 Levothyroxine Sodium (Synthroid) 50 mcg BEFORE BREAKFAST GTB Last administered on 10/26/18 07:02; Admin Dose 50 MCG; Start 10/26/18 at 07:00 Magnesium Hydroxide (Milk Of Mag) 30 ml DAILY GTB Last administered on 10/26/18 09:54; Admin Dose 30 ML; Start 10/26/18 at 09:00 Sodium Biphosphate/ Sodium Phosphate (Fleet Enema) 133 ml DAILY PRN [place] CONSTIPATION; Start 10/25/18 at 15:30 Vancomycin HCl 100 ml @ 100 mls/hr Q24H IVPB Last administered on 10/28/18 12:24; Admin Dose 100 MLS/HR; Start 10/26/18 at 11:00 Piperacillin Sod/ Tazobactam Sod 50 ml @ 100 mls/hr Q6 IVPB Last administered on 10/29/18 05:30; Admin Dose 100 MLS/HR; Start 10/26/18 at 00:00 Atropine Sulfate (Atropine (Syringe)) 0.5 mg PRN PRN IV heart rate less than 35 ; Start 10/25/18 at 22:00 Buspirone HCl (Buspar) 5 mg BID GTB Last administered on 10/26/18 11:21; Admin Dose 5 MG; Start 10/26/18 at 11:00 Furosemide (Lasix) 40 mg BID IV Last administered on 10/29/18 09:20; Admin Dose 40 MG; Start 10/27/18 at 21:00 Enoxaparin Sodium (Lovenox) 30 mg DAILY SC Last administered on 10/29/18 09:30; Admin Dose 30 MG; Start 10/28/18 at 09:00; Status Future hold Hydralazine HCl (Apresoline) 10 mg Q6H PRN IV SBP>160 Last administered on 10/29/18 09:21; Admin Dose 10 MG; Start 10/28/18 at 09:30 ZULLY BONILLA MD Oct 29, 2018 13:40
[2018-10-29] MEDS ORDERED: LIDOCAINE 1% (MPF) 5 ML VIAL ONE (15:22)
[2018-10-29] MEDS: VANCOMYCIN 500 MG (PMX) 100 ML IVPB SCH (18:36)
[2018-10-29] MEDS: LATANOPROST 0.005% 2.5 ML OPH BOTH EYES SCH (20:43)
[2018-10-30] VITALS (16 sets, daily range): BP systolic 90–169; BP diastolic 45–94; PULSE 60–86; RESP 10–20
[2018-10-30] MEDS: hydrALAzine 20 MG INJ IV PRN ×3 (01:23→22:28)
[2018-10-30] MEDS: PIPER-TAZO 2.25 GM/NS 50 ML IVPB SCH (05:36)
[2018-10-30] MEDS: LEVOTHYROXINE 50 MCG TAB GTB SCH (06:54)
[2018-10-30] MEDS: ESCITALOPRAM 10 MG TAB GTB SCH (08:10)
[2018-10-30] MEDS: MAGNESIUM HYDROXIDE 30ML CUP GTB SCH (08:10)
[2018-10-30] MEDS: FOLIC ACID 1 MG TAB GTB SCH (08:10)
[2018-10-30] MEDS: BUSPIRONE 5 MG TAB GTB SCH ×2 (08:10→21:00)
[2018-10-30] MEDS: LACTULOSE 30ML CUP PO SCH ×3 (08:11→21:00)
[2018-10-30] MEDS: ALBUTEROL/IPRATROPIUM (NEB) 3 ML AMP HHN SCH ×3 (08:31→19:54)
[2018-10-30] MEDS: FUROSEMIDE 20 MG INJ IV SCH (08:34)
--- NOTE | 2018-10-30 10:31 | PN ---
Date/Time of Note Date/Time of Note DATE: 10/30/18 TIME: 10:31 Assessment/Plan VTE Prophylaxis Risk score (from Nsg)>0 risk: 8 SCD applied (from Nsg): Yes Pharmacological prophylaxis: LMWH Lines/Catheters IV Catheter Type (from Nrsg): Peripheral IV Urinary Cath still in place: Yes Reason Cath still needed: other (indicate) Assessment/Plan Hospital Course SUBJECTIVE: No acute overnight episodes. For G-tube placement today. OBJECTIVE: Vital signs-see below PHYSICAL EXAM: Constitutional: Elderly female, not in acute distress. HEENT: Head atraumatic and normocephalic. Eyes: Extraocular muscles intact. Anicteric sclerae. Pupils equal bilaterally, reactive to light. NECK: Supple without lymph node. CHEST: Clear and good breath sounds equally. No wheezing. No rhonchi. HEART: S1, S2. Regular rate and rhythm. ABDOMEN: Soft with no rebound tenderness. Bowel sounds were present. EXTREMITIES: Full range of motion in all the extremities. No cyanosis, clubbing or edema. NEUROLOGIC: Demented. No focal deficit. No sensory deficit. PSYCHOSOCIAL: In a good mood. No signs of depression. INTEGUMENTARY: Moist mucous membranes. Good skin turgor, intact. ASSESSMENT AND PLAN:88 year old female with past medical history of hypertension, hyperlipidemia, hypothyroidism, dementia, dysphagia status post G- tube placement, and carotid artery disease transferred from the SNF w/resp distress found to have sepsis/uti/ pna/CHF exacerbation.. Acute diastolic CHF with acute hypoxic respiratory failure: -Clinically improving -De-escalate diuretics down to 40 mg daily with addition of beta-blockers s/p Sepsis: source:uti/aspiration pna -We will place patient on appropriate antimicrobial based on sensitivities. -Flagyl for aspiration coverage Right pleural effusion -Status post thoracentesis. Follow-up fluid studies. Multidrug-resistant E. coli/ESBL UTI -Change antibiotic to meropenem for 7 days. s/p Hypoxemic respiratory failure secondary to sepsis/CHF -Stable. Hypertension. -Continue the patient on appropriate antihypertensives. Hypothyroidism. -Continue Synthroid. Dysphagia. - Replace G tube today Essential hypertension -Start metoprolol Prophylaxis: Lovenox/Prevacid DC plan: to SNF following improvement of respiratory status and G tube re placement Downgrade to medical surgical floor Patient was seen in collaboration with Dr. Farrar Result Diagram: 10/29/18 0506 10/29/18 0506 Results 24hrs Laboratory Tests Test 10/29/18 14:45 Pathologist Review (Hematology) Body Fluid Type THORACENTESIS FLUID Body Fluid Volume 800.0 Body Fluid Color YELLOW Body Fluid Appearance SLIGHTLY HAZY Body Fluid WBC 240 Body Fluid RBC (Auto) 2000 Body Fluid Polynuclear WBCs (%) 30.9 Body Fluid Mononuclear Cells % Auto 69.1 Body Fluid Glucose 89 Body Fluid Total Protein < 2.0 Body Fluid Lactate Dehydrogenase 264 Exam/Review of Systems Exam Vitals Vital Signs Date Temp Pulse Resp B/P (MAP) Pulse Ox O2 O2 Flow FiO2 Time Delivery Rate 10/30/18 62 20 100 Nasal 4.0 08:31 Cannula 10/30/18 98.5 166/67 07:23 (100) 10/29/18 25 05:46 Intake and Output 10/29/18 10/29/18 10/30/18 1515:00 23:00 07:00 IntakeIntake Total 50 ml 200 ml OutputOutput Total 700 ml 450 ml BalanceBalance -650 ml -250 ml Results Results 24hrs Laboratory Tests Test 10/29/18 14:45 Pathologist Review (Hematology) Body Fluid Type THORACENTESIS FLUID Body Fluid Volume 800.0 Body Fluid Color YELLOW Body Fluid Appearance SLIGHTLY HAZY Body Fluid WBC 240 Body Fluid RBC (Auto) 2000 Body Fluid Polynuclear WBCs (%) 30.9 Body Fluid Mononuclear Cells % Auto 69.1 Body Fluid Glucose 89 Body Fluid Total Protein < 2.0 Body Fluid Lactate Dehydrogenase 264 Medications Medication Current Medications IV Flush (NS 3 ml) 3 ml PER PROTOCOL IV ; Start 10/25/18 at 14:30 Ondansetron HCl (Zofran Inj) 4 mg Q6H PRN IV NAUSEA/VOMITING; Start 10/25/18 at 14:30 Vancomycin HCl (Vanco Iv Per Pharmacy) VANCOMYCIN PER PHARMACY PER PROTOCOL XX ; Start 10/25/18 at 14:30 Albuterol/ Ipratropium (Duoneb) 3 ml Q6HWA RESP THERAPY HHN Last administered on 10/30/18at 08:31; Admin Dose 3 ML; Start 10/25/18 at 20:00 Albuterol/ Ipratropium (Duoneb) 3 ml Q2H RESP THERAPY PRN HHN Dyspnea; Start 10/25/18 at 14:30 Bisacodyl (Dulcolax Supp) 10 mg DAILY PRN [place] CONSTIPATION; Start 10/25/18 at 15:30 Escitalopram Oxalate (Lexapro) 10 mg DAILY GTB Last administered on 10/26/18 09:55; Admin Dose 10 MG; Start 10/26/18 at 09:00 Folic Acid (Folic Acid) 1 mg DAILY GTB Last administered on 10/29/18 09:00; Admin Dose 1 MG; Start 10/26/18 at 09:00 Lactulose (Enulose) 30 gm TID PO Last administered on 10/26/18 14:03; Admin Dose 30 GM; Start 10/25/18 at 21:00 Latanoprost (Xalatan) 1 drop QHS BOTH EYES Last administered on 10/29/18 20:43; Admin Dose 1 DROP; Start 10/25/18 at 21:00 Levothyroxine Sodium (Synthroid) 50 mcg BEFORE BREAKFAST GTB Last administered on 10/26/18 07:02; Admin Dose 50 MCG; Start 10/26/18 at 07:00 Magnesium Hydroxide (Milk Of Mag) 30 ml DAILY GTB Last administered on 10/26/18 09:54; Admin Dose 30 ML; Start 10/26/18 at 09:00 Sodium Biphosphate/ Sodium Phosphate (Fleet Enema) 133 ml DAILY PRN [place] CONSTIPATION; Start 10/25/18 at 15:30 Vancomycin HCl 100 ml @ 100 mls/hr Q24H IVPB Last administered on 10/29/18 18:36; Admin Dose 100 MLS/HR; Start 10/26/18 at 11:00 Piperacillin Sod/ Tazobactam Sod 50 ml @ 100 mls/hr Q6 IVPB Last administered on 10/30/18 05:36; Admin Dose 100 MLS/HR; Start 10/26/18 at 00:00 Atropine Sulfate (Atropine (Syringe)) 0.5 mg PRN PRN IV heart rate less than 35 ; Start 10/25/18 at 22:00 Buspirone HCl (Buspar) 5 mg BID GTB Last administered on 10/26/18 11:21; Admin Dose 5 MG; Start 10/26/18 at 11:00 Furosemide (Lasix) 40 mg BID IV Last administered on 10/30/18 08:34; Admin Dose 40 MG; Start 10/27/18 at 21:00 Enoxaparin Sodium (Lovenox) 30 mg DAILY SC Last administered on 10/29/18at 09:30; Admin Dose 30 MG; Start 10/28/18 at 09:00; Status Hold Hydralazine HCl (Apresoline) 10 mg Q6H PRN IV SBP>160 Last administered on 10/30/18at 01:23; Admin Dose 10 MG; Start 10/28/18 at 09:30 JOAN MURPHY NP Oct 30, 2018 10:31
--- NOTE | 2018-10-30 10:53 | CONS ---
Consult Date/Type/Reason Admit Date/Time Oct 25, 2018 at 11:10 Initial Consult Date 10/27/18 Type of Consult Pulmonary Requesting Provider: ADRIANE MAHMOOD NP Date/Time of Note DATE: 10/30/18 TIME: 10:53 Subjective Patient comfortable following thoracentesis of 800 cc right pleural effusion Objective Vital Signs Date Temp Pulse Resp B/P (MAP) Pulse Ox O2 O2 Flow FiO2 Time Delivery Rate 10/30/18 62 20 100 Nasal 4.0 08:31 Cannula 10/30/18 98.5 166/67 07:23 (100) 10/29/18 25 05:46 Intake and Output 10/29/18 10/29/18 10/30/18 1414:59 22:59 06:59 IntakeIntake Total 50 ml 200 ml OutputOutput Total 700 ml 450 ml BalanceBalance -650 ml -250 ml Exam PHYSICAL EXAMINATION: GENERAL: Elderly-appearing lady, nasal cannula oxygen VITAL SIGNS: NECK: Supple. No JVD or lymphadenopathy. CARDIAC: S1, S2. II/ systolic ejection murmur. CHEST: Diminished air entry bilaterally. ABDOMEN: Soft, nontender. No guarding or rebound. EXTREMITIES: No cyanosis, clubbing, edema. NEUROLOGIC: Generalized weakness. Vent Setting Fraction of Inspired Oxygen pe: 25 Results/Medications Result Diagram: 10/29/18 0506 10/29/18 0506 Results 24 hrs Laboratory Tests Test 10/29/18 14:45 Pathologist Review (Hematology) Body Fluid Type THORACENTESIS FLUID Body Fluid Volume 800.0 Body Fluid Color YELLOW Body Fluid Appearance SLIGHTLY HAZY Body Fluid WBC 240 Body Fluid RBC (Auto) 2000 Body Fluid Polynuclear WBCs (%) 30.9 Body Fluid Mononuclear Cells % Auto 69.1 Body Fluid Glucose 89 Body Fluid Total Protein < 2.0 Body Fluid Lactate Dehydrogenase 264 Medications Current Medications IV Flush (NS 3 ml) 3 ml PER PROTOCOL IV ; Start 10/25/18 at 14:30 Ondansetron HCl (Zofran Inj) 4 mg Q6H PRN IV NAUSEA/VOMITING; Start 10/25/18 at 14:30 Albuterol/ Ipratropium (Duoneb) 3 ml Q6HWA RESP THERAPY HHN Last administered on 10/30/18at 08:31; Admin Dose 3 ML; Start 10/25/18 at 20:00 Albuterol/ Ipratropium (Duoneb) 3 ml Q2H RESP THERAPY PRN HHN Dyspnea; Start 10/25/18 at 14:30 Bisacodyl (Dulcolax Supp) 10 mg DAILY PRN [place] CONSTIPATION; Start 10/25/18 at 15:30 Escitalopram Oxalate (Lexapro) 10 mg DAILY GTB Last administered on 10/26/18 09:55; Admin Dose 10 MG; Start 10/26/18 at 09:00 Folic Acid (Folic Acid) 1 mg DAILY GTB Last administered on 10/29/18 09:00; Admin Dose 1 MG; Start 10/26/18 at 09:00 Lactulose (Enulose) 30 gm TID PO Last administered on 10/26/18 14:03; Admin Dose 30 GM; Start 10/25/18 at 21:00 Latanoprost (Xalatan) 1 drop QHS BOTH EYES Last administered on 10/29/18 20:43; Admin Dose 1 DROP; Start 10/25/18 at 21:00 Levothyroxine Sodium (Synthroid) 50 mcg BEFORE BREAKFAST GTB Last administered on 10/26/18 07:02; Admin Dose 50 MCG; Start 10/26/18 at 07:00 Magnesium Hydroxide (Milk Of Mag) 30 ml DAILY GTB Last administered on 10/26/18 09:54; Admin Dose 30 ML; Start 10/26/18 at 09:00 Sodium Biphosphate/ Sodium Phosphate (Fleet Enema) 133 ml DAILY PRN [place] CONSTIPATION; Start 10/25/18 at 15:30 Atropine Sulfate (Atropine (Syringe)) 0.5 mg PRN PRN IV heart rate less than 35 ; Start 10/25/18 at 22:00 Buspirone HCl (Buspar) 5 mg BID GTB Last administered on 10/26/18 11:21; Admin Dose 5 MG; Start 10/26/18 at 11:00 Enoxaparin Sodium (Lovenox) 30 mg DAILY SC Last administered on 10/29/18 09:30; Admin Dose 30 MG; Start 10/28/18 at 09:00; Status Hold Hydralazine HCl (Apresoline) 10 mg Q6H PRN IV SBP>160 Last administered on 10/30at 01:23; Admin Dose 10 MG; Start 10/28/18 at 09:30 Meropenem/Sodium Chloride 50 ml @ 100 mls/hr Q12 IVPB ; Start 10/30/18 at 10:30 Metronidazole 100 ml @ 100 mls/hr Q8 IVPB ; Start 10/30/18 at 14:00 Lansoprazole (Prevacid) 15 mg DAILY@06 GTB ; Start 10/31/18 at 06:00; Status UNV Metoprolol Tartrate (Lopressor) 25 mg BID PO ; Start 10/30/18 at 21:00; Status UNV Furosemide (Lasix) 40 mg DAILY IV ; Start 10/31/18 at 09:00 Assessment/Plan Hospital Course (Demo Recall) IMPRESSION 1. Severe sepsis secondary to possible aspiration pneumonia and urinary tract infection. 2. Advanced dementia. 3. Dysphagia 4. History of hypertension. 5. Hypoxemic respiratory failure with pneumonia status post thoracentesis of right pleural effusion Plan 1. Continue antibiotics for urinary tract infection, pending culture susceptibility. 2. Aspiration precautions. 3. Pleural fluid studies 4. PEG tube placement today 5. DVT and GI prophylaxis. Barger transfer DIGNA ALANIS MD, [facility] Oct 30, 2018 10:53
[2018-10-30] MEDS: MEROPENEM 1 GM/50ML(PMX) 50 ML IVPB SCH ×2 (11:05→21:34)
--- NOTE | 2018-10-30 13:00 | PREAC ---
Date/Time of Note Date/Time of Note DATE: 10/30/18 TIME: 12:59 Anesthesia Eval and Record Evaluation Time Pre-Procedure Interview DATE: 10/30/18 TIME: 12:59 Age 88 Sex female NPO: 8 hrs Preoperative diagnosis dysphagia Planned procedure EGD with PEG placement Past Medical History Past Medical History: Includes Cardio: HTN, Dyslipidemia, CHF Endo: Hypothyroid Pulm: Other (pneumonia, right pleural effusion s/p thoracentesis) GI: Other (dysphagia) Surgery & Anesthesia Issues No known issue Meds Anticoagulation: No Beta Theodore within 24 hr: No Reason Beta Theodore not given: Pt. not on B-Theodore Reported Medications Magnesium Hydroxide* (Milk Of Magnesia*) 400 Mg/5 Ml Oral.susp, 30 ML GTB DAILY, ML 10/25/18 Bisacodyl (Dulcolax) 10 Mg Supp.rect, 10 MG RC DAILY PRN for CONSTIPATION, SUPP.RECT 10/25/18 Na Phos,M-B/Na Phos,Di-Ba (ENEMA [id number]) 133 Ml Enema, 133 ML RC EVERY 72 HOURS PRN for CONSTIPATION, ENEMA 10/25/18 Buspirone Hcl* (Buspirone Hcl*) 10 Mg Tab, 5 MG GTB BID, TAB 10/25/18 Escitalopram Oxalate* (Lexapro*) 10 Mg Tablet, 10 MG GTB DAILY, #30 TAB 10/25/18 Ferrous Sulfate* (Ferrous Sulfate*) 325 Mg Tabec, 325 MG GTB DAILY, TAB 10/25/18 Folic Acid* (Folic Acid*) 1 Mg Tablet, 1 MG GTB DAILY, TAB 10/25/18 Lactulose* (Lactulose*) 20 Gm/30 Ml Solution, 30 GM PO TID, ML 10/25/18 Latanoprost (Latanoprost) 2.5 Ml Drops, 1 DROP BOTH EYES QHS, #1 BOTTLE 10/25/18 Levothyroxine Sodium* (Levoxyl*) 50 Mcg Tablet, 50 MCG GTB BEFORE BREAKFAST, #30 TAB GIVE 30MIN PRIOR TO START OF GT FEEDING ON EMPTY STOMACH 10/25/18 Aspirin (Low Dose Aspirin) 81 Mg Tablet.dr, 81 MG GTB DAILY, #30 TAB 10/25/18 Amlodipine Besylate* (Norvasc*) 5 Mg Tablet, 5 MG GTB DAILY, TAB HOLD FOR SBP <110 10/25/18 Discontinued Reported Medications Latanoprost (Latanoprost) 2.5 Ml Drops, 1 DROP BOTH EYES QHS, #1 BOTTLE 01/17/16 Brimonidine/Timolol* (Combigan*) 10 Ml Drops, 1 DROP BOTH EYES BID, EA 01/17/16 Olmesartan Medoxomil (Benicar) 40 Mg Tablet, 40 MG PO DAILY, #30 TAB 01/17/16 Simvastatin (Simvastatin) 20 Mg Tablet, 20 MG PO DAILY, #30 TAB 01/17/16 Amlodipine Besylate* (Amlodipine Besylate*) 10 Mg Tablet, 10 MG PO DAILY, #30 TAB 01/17/16 Levothyroxine Sodium* (Levothyroxine Sodium*) 100 Mcg Tablet, 100 MCG PO BEFORE BREAKFAST, #30 TAB 01/17/16 Aspirin* (Aspirin* Chew) 81 Mg Tab.chew, 81 MG PO DAILY, TAB.CHEW 01/17/16 Discontinued Scripts Sulfamethoxazole-Trimethoprim* (Bactrim* DS) 800-160 Mg Tab, 1 TAB PO BID, #20 TAB Prov:MURPHYDELICIAA V. CLINICAL NURSE LEADER 01/20/16 Olanzapine* (Zyprexa*) 2.5 Mg Tablet, 2.5 MG PO DAILY for 30 Days, TAB Prov:MURPHY,JOAN V. CLINICAL NURSE LEADER 01/20/16 Donepezil* (Aricept*) 5 Mg Tablet, 5 MG PO DAILY for 30 Days, TAB Prov:MURPHY,JOAN V. CLINICAL NURSE LEADER 01/20/16 Current Medications IV Flush (NS 3 ml) 3 ml PER PROTOCOL IV ; Start 10/25/18 at 14:30 Ondansetron HCl (Zofran Inj) 4 mg Q6H PRN IV NAUSEA/VOMITING; Start 10/25/18 at 14:30 Albuterol/ Ipratropium (Duoneb) 3 ml Q6HWA RESP THERAPY HHN Last administered on 10/30/18at 08:31; Admin Dose 3 ML; Start 10/25/18 at 20:00 Albuterol/ Ipratropium (Duoneb) 3 ml Q2H RESP THERAPY PRN HHN Dyspnea; Start 10/25/18 at 14:30 Bisacodyl (Dulcolax Supp) 10 mg DAILY PRN [place] CONSTIPATION; Start 10/25/18 at 15:30 Escitalopram Oxalate (Lexapro) 10 mg DAILY GTB Last administered on 10/26/18 09:55; Admin Dose 10 MG; Start 10/26/18 at 09:00 Folic Acid (Folic Acid) 1 mg DAILY GTB Last administered on 10/29/18 09:00; Admin Dose 1 MG; Start 10/26/18 at 09:00 Lactulose (Enulose) 30 gm TID PO Last administered on 10/26/18 14:03; Admin Dose 30 GM; Start 10/25/18 at 21:00 Latanoprost (Xalatan) 1 drop QHS BOTH EYES Last administered on 10/29/18 20:43; Admin Dose 1 DROP; Start 10/25/18 at 21:00 Levothyroxine Sodium (Synthroid) 50 mcg BEFORE BREAKFAST GTB Last administered on 10/26/18 07:02; Admin Dose 50 MCG; Start 10/26/18 at 07:00 Magnesium Hydroxide (Milk Of Mag) 30 ml DAILY GTB Last administered on 10/26/18 09:54; Admin Dose 30 ML; Start 10/26/18 at 09:00 Sodium Biphosphate/ Sodium Phosphate (Fleet Enema) 133 ml DAILY PRN [place] CONSTIPATION; Start 10/25/18 at 15:30 Atropine Sulfate (Atropine (Syringe)) 0.5 mg PRN PRN IV heart rate less than 35 ; Start 10/25/18 at 22:00 Buspirone HCl (Buspar) 5 mg BID GTB Last administered on 10/26/18 11:21; Admin Dose 5 MG; Start 10/26/18 at 11:00 Enoxaparin Sodium (Lovenox) 30 mg DAILY SC Last administered on 10/29/18 09:30; Admin Dose 30 MG; Start 10/28/18 at 09:00; Status Hold Hydralazine HCl (Apresoline) 10 mg Q6H PRN IV SBP>160 Last administered on 10/30/18 11:44; Admin Dose 10 MG; Start 10/28/18 at 09:30 Meropenem/Sodium Chloride 50 ml @ 100 mls/hr Q12 IVPB Last administered on 10/30/18 11:05; Admin Dose 100 MLS/HR; Start 10/30/18 at 10:30 Metronidazole 100 ml @ 100 mls/hr Q8 IVPB ; Start 10/30/18 at 14:00 Lansoprazole (Prevacid) 15 mg DAILY@06 GTB ; Start 10/31/18 at 06:00 Metoprolol Tartrate (Lopressor) 25 mg BID PO ; Start 10/30/18 at 21:00 Furosemide (Lasix) 40 mg DAILY IV ; Start 10/31/18 at 09:00 Meds reviewed: Yes Allergies Coded Allergies: No Known Allergy (Unverified , 10/25/18) Allergies Reviewed: Yes Labs/Studies Labs Reviewed: Reviewed by anesthesiologist Result Diagram: 10/29/18 0506 10/29/18 0506 test: N/A Studies: 2D Echo Pre-procedure Exam Last vitals Vital Signs Date Temp Pulse Resp B/P (MAP) Pulse Ox O2 O2 Flow FiO2 Time Delivery Rate 10/30/18 64 12:20 10/30/18 98.5 20 165/68 98 11:38 (100) 10/30/18 Nasal 4.0 08:31 Cannula 10/29/18 25 05:46 Airway: Adequate mouth opening, Adequate thyromental dist Mallampati: Mallampati II Teeth: Normal Lung: Normal Heart: Normal ASA Physical Status ASA physical status: 3 Emergency: None Planned Anesthetic General/MAC: Mask Planned Pain Management Parenteral pain med Pre-operative Attestations Prior to commencing anesthesia and surgery, the patient was re-evaluated, there was verification of: *The patient's identity *The results of appropriate recent lab work and preoperative vital signs *The above evaluation not changing prior to induction *Anesthetic plan, risk benefits, alternative and complications discussed with patient/family; questions answered; patient/family understands, accepts and wishes to proceed. KATHY DUGGAN MD Oct 30, 2018 13:00
[2018-10-30] MEDS: metroNIDAZOLE 500 MG/NS (PMX) 100 ML IVPB SCH ×2 (13:16→22:18)
[2018-10-30] MEDS ORDERED: CEFAZOLIN 1 GM/50 ML (PMX) 50 ML IVPB ONE ×2 (16:19→16:28)
[2018-10-30] MEDS ORDERED: ETOMIDATE 20 MG INJ ONE (16:23)
[2018-10-30] MEDS ORDERED: LIDOCAINE 2% (SDV) 5 ML INJ ONE (16:23)
[2018-10-30] MEDS ORDERED: HYDROmorphONE 1 MG/5 ML IV SYRINGE IV PRN ×2 (16:30)
[2018-10-30] MEDS ORDERED: ONDANSETRON 4 MG INJ IV PRN (16:30)
[2018-10-30] MEDS ORDERED: FENTAnyl 50 MCG/ML VIAL ONE (16:33)
--- NOTE | 2018-10-30 17:03 | PAC ---
Date/Time of Note Date/Time of Note DATE: 10/30/18 TIME: 17:03 Post-Anesthesia Notes Post-Anesthesia Note Last documented vital signs Vital Signs Date Temp Pulse Resp B/P (MAP) Pulse Ox O2 O2 Flow FiO2 Time Delivery Rate 10/30/18 Non 15 16:45 Rebreather 10/30/18 97.0 65 13 143/61 100 16:15 (88) 10/29/18 25 05:46 Activity: WNL Respiratory function: WNL Cardiovascular function: WNL Mental status: Baseline Pain reasonably controlled: Yes Hydration appropriate: Yes Nausea/Vomiting absent: Yes Comments BP: 118/55 HR: 68 RR: 15 T: 98 SaO2: 99% KATHY DUGGAN MD Oct 30, 2018 17:03
[2018-10-30] MEDS: METOPROLOL 25 MG TAB PO SCH (21:00)
[2018-10-30] MEDS: LATANOPROST 0.005% 2.5 ML OPH BOTH EYES SCH (21:00)
[2018-10-31 02:00] VITALS: BP 126/62; PULSE 68; RESP 16
[2018-10-31] MEDS: LANSOPRAZOLE 15 MG CAP GTB SCH (05:33)
[2018-10-31] MEDS: metroNIDAZOLE 500 MG/NS (PMX) 100 ML IVPB SCH ×3 (05:33→22:24)
[2018-10-31] MEDS: LEVOTHYROXINE 50 MCG TAB GTB SCH (07:00)
[2018-10-31 07:26] VITALS: BP 175/74; PULSE 71; RESP 20
[2018-10-31] MEDS: ALBUTEROL/IPRATROPIUM (NEB) 3 ML AMP HHN SCH ×3 (08:19→21:18)
[2018-10-31] MEDS: BUSPIRONE 5 MG TAB GTB SCH ×2 (09:00→21:11)
[2018-10-31] MEDS: METOPROLOL 25 MG TAB PO SCH ×2 (09:00→21:12)
[2018-10-31] MEDS: FOLIC ACID 1 MG TAB GTB SCH (09:00)
[2018-10-31] MEDS: MAGNESIUM HYDROXIDE 30ML CUP GTB SCH (09:00)
[2018-10-31] MEDS: LACTULOSE 30ML CUP PO SCH ×3 (09:00→21:11)
[2018-10-31] MEDS: ESCITALOPRAM 10 MG TAB GTB SCH (09:00)
[2018-10-31] MEDS: ENOXAPARIN 30 MG/0.3 ML SYG SC SCH (09:28)
[2018-10-31] MEDS: MEROPENEM 1 GM/50ML(PMX) 50 ML IVPB SCH ×2 (09:29→21:11)
[2018-10-31] MEDS: FUROSEMIDE 20 MG INJ IV SCH (09:30)
--- NOTE | 2018-10-31 11:07 | CONS ---
Consult Date/Type/Reason Admit Date/Time Oct 25, 2018 at 11:10 Initial Consult Date 10/27/18 Type of Consult Pulmonary Requesting Provider: ADRIANE MAHMOOD NP Date/Time of Note DATE: 10/31/18 TIME: 11:07 Subjective Patient stable following PEG tube placement. On 4 L nasal cannula no respiratory distress. Objective Vital Signs Date Temp Pulse Resp B/P (MAP) Pulse Ox O2 O2 Flow FiO2 Time Delivery Rate 10/31/18 88 10 96 Nasal 2.0 08:19 Cannula 10/31/18 97.9 175/74 07:26 (107) 10/30/18 19:54 Intake and Output 10/30/18 10/30/18 10/31/18 1515:00 23:00 07:00 IntakeIntake Total 150 ml 100 ml 200 ml OutputOutput Total 400 ml BalanceBalance 150 ml 100 ml -200 ml Exam GENERAL: Elderly lady VITAL SIGNS: per chart NECK: Supple. No JVD or lymphadenopathy. CARDIAC EXAM: S1, S2. No added sounds or murmurs. CHEST: Bibasilar rales ABDOMEN: Soft, nontender. No guarding or rebound. EXTREMITIES: No cyanosis, clubbing NEUROLOGIC: Generalized weakness. Vent Setting Fraction of Inspired Oxygen pe: 21 Results/Medications Result Diagram: 10/31/184 10/31/184 Results 24 hrs Laboratory Tests Test 10/31/18 04:44 White Blood Count 5.7 # Red Blood Count 3.18 L Hemoglobin 10.2 L Hematocrit 33.3 L Mean Corpuscular Volume 104.7 H Mean Corpuscular Hemoglobin 32.1 Mean Corpuscular Hemoglobin Concent 30.6 L Red Cell Distribution Width 18.0 H Platelet Count 116 L Mean Platelet Volume 10.2 Immature Granulocytes % 0.500 H Neutrophils % 75.4 Lymphocytes % 12.9 L Monocytes % 8.5 Eosinophils % 2.3 Basophils % 0.4 Nucleated Red Blood Cells % 0.0 Immature Granulocytes # 0.030 Neutrophils # 4.3 Lymphocytes # 0.7 L Monocytes # 0.5 Eosinophils # 0.1 Basophils # 0.0 Nucleated Red Blood Cells # 0.0 Sodium Level 148 H Potassium Level 3.4 L Chloride Level 111 H Carbon Dioxide Level 34 H Anion Gap 3 L Blood Urea Nitrogen 36 H Creatinine 1.32 H Est Glomerular Filtrat Rate mL/min Glucose Level 94 Calcium Level 8.9 Magnesium Level 2.5 Medications Current Medications IV Flush (NS 3 ml) 3 ml PER PROTOCOL IV ; Start 10/25/18 at 14:30 Ondansetron HCl (Zofran Inj) 4 mg Q6H PRN IV NAUSEA/VOMITING; Start 10/25/18 at 14:30 Albuterol/ Ipratropium (Duoneb) 3 ml Q6HWA RESP THERAPY HHN Last administered on 10/31/18 08:19; Admin Dose 3 ML; Start 10/25/18 at 20:00 Albuterol/ Ipratropium (Duoneb) 3 ml Q2H RESP THERAPY PRN HHN Dyspnea; Start 10/25/18 at 14:30 Bisacodyl (Dulcolax Supp) 10 mg DAILY PRN IN CONSTIPATION; Start 10/25/18 at 15:30 Escitalopram Oxalate (Lexapro) 10 mg DAILY GTB Last administered on 10/26/18 09:55; Admin Dose 10 MG; Start 10/26/18 at 09:00 Folic Acid (Folic Acid) 1 mg DAILY GTB Last administered on 10/29/18 09:00; Admin Dose 1 MG; Start 10/26/18 at 09:00 Lactulose (Enulose) 30 gm TID PO Last administered on 10/26/18 14:03; Admin Dose 30 GM; Start 10/25/18 at 21:00 Latanoprost (Xalatan) 1 drop QHS BOTH EYES Last administered on 10/29/18 20:43; Admin Dose 1 DROP; Start 10/25/18 at 21:00 Levothyroxine Sodium (Synthroid) 50 mcg BEFORE BREAKFAST GTB Last administered on 10/26/18 07:02; Admin Dose 50 MCG; Start 10/26/18 at 07:00 Magnesium Hydroxide (Milk Of Mag) 30 ml DAILY GTB Last administered on 10/26/18 09:54; Admin Dose 30 ML; Start 10/26/18 at 09:00 Sodium Biphosphate/ Sodium Phosphate (Fleet Enema) 133 ml DAILY PRN IN [place] NSTIPATION; Start 10/25/18 at 15:30 Atropine Sulfate (Atropine (Syringe)) 0.5 mg PRN PRN IV heart rate less than 35 ; Start 10/25/18 at 22:00 Buspirone HCl (Buspar) 5 mg BID GTB Last administered on 10/26/18 11:21; Admin Dose 5 MG; Start 10/26/18 at 11:00 Enoxaparin Sodium (Lovenox) 30 mg DAILY SC Last administered on 10/31/18 09:28; Admin Dose 30 MG; Start 10/28/18 at 09:00 Hydralazine HCl (Apresoline) 10 mg Q6H PRN IV SBP>160 Last administered on 10/30/18 22:28; Admin Dose 10 MG; Start 10/28/18 at 09:30 Meropenem/Sodium Chloride 50 ml @ 100 mls/hr Q12 IVPB Last administered on 10/31/18 09:29; Admin Dose 100 MLS/HR; Start 10/30/18 at 10:30 Metronidazole 100 ml @ 100 mls/hr Q8 IVPB Last administered on 10/31/18 05:33; Admin Dose 100 MLS/HR; Start 10/30/18 at 14:00 Lansoprazole (Prevacid) 15 mg DAILY@06 GTB ; Start 10/31/18 at 06:00 Metoprolol Tartrate (Lopressor) 25 mg BID PO ; Start 10/30/18 at 21:00 Furosemide (Lasix) 40 mg DAILY IV Last administered on 10/31/18 09:30; Admin Dose 40 MG; Start 10/31/18 at 09:00 Assessment/Plan Hospital Course (Demo Recall) IMPRESSION 1. Severe sepsis secondary to possible aspiration pneumonia and urinary tract infection. 2. Advanced dementia. 3. Dysphagia 4. History of hypertension. 5. Hypoxemic respiratory failure with pneumonia status post thoracentesis of right pleural effusion Plan 1. De-escalate antibiotics 2. Aspiration precautions. 3. Pleural fluid studies 4. PEG feeding as tolerated 5. DVT and GI prophylaxis. [facility] transfer [facility] ALANIS [facility], [facility] Oct 31, 2018 11:07
--- NOTE | 2018-10-31 11:16 | PDOCDIS ---
Discharge Instructions CONDITION [id number] Patient Condition: [id number] Guarded HOME CARE INSTRUCTIONS: Karine Your diet recommendation is: Luis Alberto GTUBE FEEDING FOLLOW UP/APPOINTMENTS Follow-up Plan TO JOAN HINES NP Oct 31, 2018 11:16
[2018-10-31] MEDS ORDERED: METR-122 G-TUBE (11:19)
[2018-10-31] MEDS ORDERED: IPRA3AMP29 HHN ×2 (11:19)
[2018-10-31] MEDS ORDERED: METO-448 PO (11:19)
[2018-10-31] MEDS ORDERED: MERO1VIA IV (11:19)
[2018-10-31] MEDS ORDERED: FURO-109 PO (11:19)
--- NOTE | 2018-10-31 11:36 | DS ---
Date/Time of Note Date/Time of Note DATE: 10/31/18 TIME: 11:23 Discharge Summary Admission/Discharge Info Admit Date/Time Oct 25, 2018 at 11:10 Discharge Date/Time Discharge Diagnosis Acute diastolic CHF with acute hypoxic respiratory failure: s/p Sepsis: source:uti/aspiration pna Right pleural effusion Multidrug-resistant E. coli/ESBL UTI Hypertension. ypothyroidism. Dysphagia. Essential hypertension Patient Condition: Stable Consults ,pulmonary Procedures 10/29/2018. IMPRESSION: 1. Satisfactory ultrasound-guided right thoracentesis. 10/25/2018 echocardiogram. Conclusions: Normal left ventricular systolic function. Normal left ventricular cavity size. Normal left ventricular wall thickness. Ejection fraction is visually estimated at 55-60 %. Tissue Doppler/Mitral Doppler indices are consistent with pseudonormalization with mildly elevated left atrial pressure (Stage II diastolic dysfunction). Normal right ventricular size. Normal right ventricular systolic function. The left atrium is normal in size. The right atrium is normal in size. Not well visualized. Moderate mitral valve regurgitation. No hemodynamically significant aortic stenosis by doppler. Mild to moderate aortic valve regurgitation. Estimated peak PA systolic pressure 35 mmHg. There is moderate tricuspid regurgitation. Normal pericardium with no significant pericardial effusion. Pleural effusion seen. Electronically Signed By: Lon Marroquin 2018-10-28 14:42:03 PDT Hospital Course :88 year old female with past medical history of hypertension, hyperlipidemia, hypothyroidism, dementia, dysphagia status post G-tube placement, and carotid artery disease transferred from the SNF w/resp distress and dislodged G-tube, found to have sepsis/uti/ pna/CHF exacerbation.. She was treated with appropriate antimicrobial, he was also noted with multidrug-resistant E. coli/ESBL UTI for which she also received meropenem. Resp status improved and she was able to tolerate oxygen via nasal cannula. She was continued on appropriate anaerobic coverage for possible aspiration pneumonia as well. Hospitalization was also noted for right-sided pleural effusion for which she underwent thoracentesis with pathology negative for malignancy. Patient also was treated with IV diuretics and beta-blockers for acute diastolic heart failure. Patient's respiratory status was optimized and then she underwent new G-tube placement on 10/30/2018. Patient was then started on tube feeding via G-tube. Her labs and vital signs stable and respiratory status stable enough to be discharged to [facility]. Patient was accepted on 10/31/2018 and was discharged in stable condition. Approximately 60-minute was spent on coordinating the discharge on this patient. Patient was seen in collaboration with Dr. Farrar. Home Meds Reported Medications Magnesium Hydroxide* (Milk Of Magnesia*) 400 Mg/5 Ml Oral.susp, 30 ML GTB DAILY, ML 10/25/18 Bisacodyl (Dulcolax) 10 Mg Supp.rect, 10 MG RC DAILY PRN for CONSTIPATION, SUPP.RECT 10/25/18 Na Phos,M-B/Na Phos,Di-Ba (ENEMA [id number]) 133 Ml Enema, 133 ML RC EVERY 72 HOURS PRN for CONSTIPATION, ENEMA 10/25/18 Buspirone Hcl* (Buspirone Hcl*) 10 Mg Tab, 5 MG GTB BID, TAB 10/25/18 Escitalopram Oxalate* (Lexapro*) 10 Mg Tablet, 10 MG GTB DAILY, #30 TAB 10/25/18 Ferrous Sulfate* (Ferrous Sulfate*) 325 Mg Tabec, 325 MG GTB DAILY, TAB 10/25/18 Folic Acid* (Folic Acid*) 1 Mg Tablet, 1 MG GTB DAILY, TAB 10/25/18 Lactulose* (Lactulose*) 20 Gm/30 Ml Solution, 30 GM PO TID, ML 10/25/18 Latanoprost (Latanoprost) 2.5 Ml Drops, 1 DROP BOTH EYES QHS, #1 BOTTLE 10/25/18 Levothyroxine Sodium* (Levoxyl*) 50 Mcg Tablet, 50 MCG GTB BEFORE BREAKFAST, #30 TAB GIVE 30MIN PRIOR TO START OF GT FEEDING ON EMPTY STOMACH 10/25/18 Aspirin (Low Dose Aspirin) 81 Mg Tablet.dr, 81 MG GTB DAILY, #30 TAB 10/25/18 Amlodipine Besylate* (Norvasc*) 5 Mg Tablet, 5 MG GTB DAILY, TAB HOLD FOR SBP <110 10/25/18 Discontinued Reported Medications Latanoprost (Latanoprost) 2.5 Ml Drops, 1 DROP BOTH EYES QHS, #1 BOTTLE 01/17/16 Brimonidine/Timolol* (Combigan*) 10 Ml Drops, 1 DROP BOTH EYES BID, EA 01/17/16 Olmesartan Medoxomil (Benicar) 40 Mg Tablet, 40 MG PO DAILY, #30 TAB 01/17/16 Simvastatin (Simvastatin) 20 Mg Tablet, 20 MG PO DAILY, #30 TAB 01/17/16 Amlodipine Besylate* (Amlodipine Besylate*) 10 Mg Tablet, 10 MG PO DAILY, #30 TAB 01/17/16 Levothyroxine Sodium* (Levothyroxine Sodium*) 100 Mcg Tablet, 100 MCG PO BEFORE BREAKFAST, #30 TAB 01/17/16 Aspirin* (Aspirin* Chew) 81 Mg Tab.chew, 81 MG PO DAILY, TAB.CHEW 01/17/16 Discontinued Scripts Sulfamethoxazole-Trimethoprim* (Bactrim* DS) 800-160 Mg Tab, 1 TAB PO BID, #20 TAB Prov:MURPHYDELICIAA V. [employer] 01/20/16 Olanzapine* (Zyprexa*) 2.5 Mg Tablet, 2.5 MG PO DAILY for 30 Days, TAB Prov:MURPHY,JOAN V. [employer] 01/20/16 Donepezil* (Aricept*) 5 Mg Tablet, 5 MG PO DAILY for 30 Days, TAB Prov:MURPHYJOAN V. [employer]PENTER [employer] 01/20/16 Follow-up Plan TO LEE VINING Primary Care Provider Care Physician No Primary Pending Labs Laboratory Tests Test 10/31/18 04:44 White Blood Count 5.7 10^3/ul (4.8-10.8) Red Blood Count 3.18 10^6/ul (4.20-5.40) Hemoglobin 10.2 g/dl (12.0-16.0) Hematocrit 33.3 % (37.0-47.0) Mean Corpuscular Volume 104.7 fl (82.0-101.0) Mean Corpuscular Hemoglobin 32.1 pg (29.0-33.0) Mean Corpuscular Hemoglobin Concent 30.6 g/dl (32.0-37.0) Red Cell Distribution Width 18.0 % (11.5-14.5) Platelet Count 116 10^3/UL (140-415) Mean Platelet Volume 10.2 fl (7.4-10.4) Immature Granulocytes % 0.500 % (0.001-0.429) Neutrophils % 75.4 % (39.0-77.0) Lymphocytes % 12.9 % (15.0-51.0) Monocytes % 8.5 % (0.0-11.0) Eosinophils % 2.3 % (0.0-7.0) Basophils % 0.4 % (0.0-2.0) Nucleated Red Blood Cells % 0.0 /100WBC (0.0-0.0) Immature Granulocytes # 0.030 10^3/ul (0.0-0.031) Neutrophils # 4.3 10^3/ul (1.6-7.5) Lymphocytes # 0.7 10^3/ul (0.8-2.9) Monocytes # 0.5 10^3/ul (0.3-0.9) Eosinophils # 0.1 10^3/ul (0.0-0.5) Basophils # 0.0 10^3/ul (0.0-0.1) Nucleated Red Blood Cells # 0.0 10^3/ul (0.0-0.0) Sodium Level 148 mmol/L (135-144) Potassium Level 3.4 mmol/L (3.5-5.1) Chloride Level 111 mmol/L (97-110) Carbon Dioxide Level 34 mmol/L (21-31) Anion Gap 3 (5-13) Blood Urea Nitrogen 36 mg/dl (7-20) Creatinine 1.32 mg/dl (0.44-1.00) Est Glomerular Filtrat Rate mL/min mL/min (>60) Glucose Level 94 mg/dl (70-220) Calcium Level 8.9 mg/dl (8.4-10.2) Magnesium Level 2.5 mg/dl (1.7-2.5) JOAN MURPHY V. [employer] Oct 31, 2018 11:34
--- NOTE | 2018-10-31 14:04 | PN ---
Date/Time of Note Date/Time of Note DATE: 10/31/18 TIME: 14:01 Assessment/Plan VTE Prophylaxis Risk score (from Ns)>0 risk: 5 SCD applied (from Ns): Yes SCD contraindicated: other (scds) Pharmacological prophylaxis: other (scds) Lines/Catheters IV [facility]from [facility] Peripheral IV Urinary Cath still in place: Yes Reason Cath still needed: other (indicate) (monitor output) Assessment/Plan Hospital Course Assessment: Dysphagia status post prior G-tube, now dislodged EGD/PEG 10/30/2018 Uneventful PEG placement Aspiration pneumonia Acute hypoxic respiratory failure, likely secondary to above. UTI HTN Possible CHF Hypothyroidism Anemia Plan: Restart tube feeding PEG care twice daily Patient to be discharged to [place] today- GI will sign off Patient seen in collaboration with Dr. See. Subjective: Course reviewed with nursing staff Patient interviewed and examined All labs, imaging and other results reviewed No over night events G-tube in place, no s/s of infection Previous ostomy site healing well. Constitutional: non-verbal Psych: confusion Head: normocephalic, atraumatic Eyes: nl conjunctiva ENMT: nl external ears & nose, mucosa pink and moist Neck: supple Respiratory: clear to auscultation Cardiovascular: regular rate and rhythm Gastrointestinal: soft, other (prior g-tube tract noted mid abdomen, covered with gauze.)- new g-tube in place Musculoskeletal: nl extremities to inspection Extremities: normal pulses Result Diagram: 10/31/18 0444 10/31/18 0444 Results 24hrs Laboratory Tests Test 10/31/18 04:44 White Blood Count 5.7 # Red Blood Count 3.18 L Hemoglobin 10.2 L Hematocrit 33.3 L Mean Corpuscular Volume 104.7 H Mean Corpuscular Hemoglobin 32.1 Mean Corpuscular Hemoglobin Concent 30.6 L Red Cell Distribution Width 18.0 H Platelet Count 116 L Mean Platelet Volume 10.2 Immature Granulocytes % 0.500 H Neutrophils % 75.4 Lymphocytes % 12.9 L Monocytes % 8.5 Eosinophils % 2.3 Basophils % 0.4 Nucleated Red Blood Cells % 0.0 Immature Granulocytes # 0.030 Neutrophils # 4.3 Lymphocytes # 0.7 L Monocytes # 0.5 Eosinophils # 0.1 Basophils # 0.0 Nucleated Red Blood Cells # 0.0 Sodium Level 148 H Potassium Level 3.4 L Chloride Level 111 H Carbon Dioxide Level 34 H Anion Gap 3 L Blood Urea Nitrogen 36 H Creatinine 1.32 H Est Glomerular Filtrat Rate mL/min Glucose Level 94 Calcium Level 8.9 Magnesium Level 2.5 Exam/Review of Systems Exam Vitals Vital Signs Date Temp Pulse Resp B/P (MAP) Pulse Ox O2 O2 Flow FiO2 Time Delivery Rate 10/31/18 88 10 96 Nasal 2.0 08:19 Cannula 10/31/18 97.9 175/74 07:26 (107) 10/30/18 21 19:54 Intake and Output 10/30/18 10/30/18 10/31/18 1515:00 23:00 07:00 IntakeIntake Total 150 ml 100 ml 200 ml OutputOutput Total 400 ml BalanceBalance 150 ml 100 ml -200 ml Results Results 24hrs Laboratory Tests Test 10/31/18 04:44 White Blood Count 5.7 # Red Blood Count 3.18 L Hemoglobin 10.2 L Hematocrit 33.3 L Mean Corpuscular Volume 104.7 H Mean Corpuscular Hemoglobin 32.1 Mean Corpuscular Hemoglobin Concent 30.6 L Red Cell Distribution Width 18.0 H Platelet Count 116 L Mean Platelet Volume 10.2 Immature Granulocytes % 0.500 H Neutrophils % 75.4 Lymphocytes % 12.9 L Monocytes % 8.5 Eosinophils % 2.3 Basophils % 0.4 Nucleated Red Blood Cells % 0.0 Immature Granulocytes # 0.030 Neutrophils # 4.3 Lymphocytes # 0.7 L Monocytes # 0.5 Eosinophils # 0.1 Basophils # 0.0 Nucleated Red Blood Cells # 0.0 Sodium Level 148 H Potassium Level 3.4 L Chloride Level 111 H Carbon Dioxide Level 34 H Anion Gap 3 L Blood Urea Nitrogen 36 H Creatinine 1.32 H Est Glomerular Filtrat Rate mL/min Glucose Level 94 Calcium Level 8.9 Magnesium Level 2.5 Medications Medication Current Medications IV Flush (NS 3 ml) 3 ml PER PROTOCOL IV ; Start 10/25/18 at 14:30 Ondansetron HCl (Zofran Inj) 4 mg Q6H PRN IV NAUSEA/VOMITING; Start 10/25/18 at 14:30 Albuterol/ Ipratropium (Duoneb) 3 ml Q6HWA RESP THERAPY HHN Last administered on 10/31/18at 08:19; Admin Dose 3 ML; Start 10/25/18 at 20:00 Albuterol/ Ipratropium (Duoneb) 3 ml Q2H RESP THERAPY PRN HHN Dyspnea; Start 10/25/18 at 14:30 Bisacodyl (Dulcolax Supp) 10 mg DAILY PRN [place] CONSTIPATION; Start 10/25/18 at 15:30 Escitalopram Oxalate (Lexapro) 10 mg DAILY GTB Last administered on 10/26/18 09:55; Admin Dose 10 MG; Start 10/26/18 at 09:00 Folic Acid (Folic Acid) 1 mg DAILY GTB Last administered on 10/29/18 09:00; Admin Dose 1 MG; Start 10/26/18 at 09:00 Lactulose (Enulose) 30 gm TID PO Last administered on 10/26/18 14:03; Admin Dose 30 GM; Start 10/25/18 at 21:00 Latanoprost (Xalatan) 1 drop QHS BOTH EYES Last administered on 10/29/18 20:43; Admin Dose 1 DROP; Start 10/25/18 at 21:00 Levothyroxine Sodium (Synthroid) 50 mcg BEFORE BREAKFAST GTB Last administered on 10/26/18 07:02; Admin Dose 50 MCG; Start 10/26/18 at 07:00 Magnesium Hydroxide (Milk Of Mag) 30 ml DAILY GTB Last administered on 10/26/18 09:54; Admin Dose 30 ML; Start 10/26/18 at 09:00 Sodium Biphosphate/ Sodium Phosphate (Fleet Enema) 133 ml DAILY PRN [place] CONSTIPATION; Start 10/25/18 at 15:30 Atropine Sulfate (Atropine (Syringe)) 0.5 mg PRN PRN IV heart rate less than 35 ; Start 10/25/18 at 22:00 Buspirone HCl (Buspar) 5 mg BID GTB Last administered on 10/26/18 11:21; Admin Dose 5 MG; Start 10/26/18 at 11:00 Enoxaparin Sodium (Lovenox) 30 mg DAILY SC Last administered on 10/31/18 09:28; Admin Dose 30 MG; Start 10/28/18 at 09:00 Hydralazine HCl (Apresoline) 10 mg Q6H PRN IV SBP>160 Last administered on 4/24/19at 22:28; Admin Dose 10 MG; Start 10/28/18 at 09:30 Meropenem/Sodium Chloride 50 ml @ 100 mls/hr Q12 IVPB Last administered on 10/31/18at 09:29; Admin Dose 100 MLS/HR; Start 10/30/18 at 10:30 Metronidazole 100 ml @ 100 mls/hr Q8 IVPB Last administered on 10/31/18at 05:33; Admin Dose 100 MLS/HR; Start 10/30/18 at 14:00 Lansoprazole (Prevacid) 15 mg DAILY@06 GTB ; Start 10/31/18 at 06:00 Metoprolol Tartrate (Lopressor) 25 mg BID PO ; Start 10/30/18 at 21:00 Furosemide (Lasix) 40 mg DAILY IV Last administered on 10/31/18at 09:30; Admin Dose 40 MG; Start 10/31/18 at 09:00 LAURA CARTER Oct 31, 2018 14:04
[2018-10-31 14:59] VITALS: BP 167/72; PULSE 73; RESP 18
[2018-10-31] MEDS: hydrALAzine 20 MG INJ IV PRN (18:39)
[2018-10-31 19:36] VITALS: BP 124/57; PULSE 70; RESP 18
[2018-10-31] MEDS: LATANOPROST 0.005% 2.5 ML OPH BOTH EYES SCH (21:39)
[2018-11-01] VITALS (12 sets, daily range): BP systolic 145–182; BP diastolic 65–79; PULSE 55–101; RESP 16–18
[2018-11-01] MEDS: hydrALAzine 20 MG INJ IV PRN ×2 (02:57→10:21)
[2018-11-01] MEDS: LANSOPRAZOLE 15 MG CAP GTB SCH (06:03)
[2018-11-01] MEDS: LEVOTHYROXINE 50 MCG TAB GTB SCH (06:03)
[2018-11-01] MEDS: metroNIDAZOLE 500 MG/NS (PMX) 100 ML IVPB SCH ×3 (06:04→22:18)
[2018-11-01] MEDS: ALBUTEROL/IPRATROPIUM (NEB) 3 ML AMP HHN SCH ×3 (08:17→20:28)
[2018-11-01] MEDS: METOPROLOL 25 MG TAB GTB SCH ×3 (09:00→20:03)
[2018-11-01] MEDS: BUSPIRONE 5 MG TAB GTB SCH ×2 (09:50→20:20)
[2018-11-01] MEDS: ESCITALOPRAM 10 MG TAB GTB SCH (09:50)
[2018-11-01] MEDS: FOLIC ACID 1 MG TAB GTB SCH (09:50)
[2018-11-01] MEDS: LACTULOSE 30ML CUP GTB SCH ×3 (09:51→20:20)
[2018-11-01] MEDS: MAGNESIUM HYDROXIDE 30ML CUP GTB SCH (09:51)
[2018-11-01] MEDS: MEROPENEM 1 GM/50ML(PMX) 50 ML IVPB SCH ×2 (09:51→20:20)
[2018-11-01] MEDS: FUROSEMIDE 20 MG INJ IV SCH (09:52)
[2018-11-01] MEDS: ENOXAPARIN 30 MG/0.3 ML SYG SC SCH (09:55)
--- NOTE | 2018-11-01 11:20 | CONS ---
Consult Date/Type/Reason Admit Date/Time Oct 25, 2018 at 11:10 Initial Consult Date 10/27/18 Type of Consult Pulmonary Requesting Provider: ADRIANE MAHMOOD [employer] Date/Time of Note DATE: 11/01/18 TIME: 11:19 Subjective Remains stable after peg placement. Objective Vital Signs Date Temp Pulse Resp B/P (MAP) Pulse Ox O2 O2 Flow FiO2 Time Delivery Rate 11/01/18 60 162/75 11:02 (104) 11/01/18 18 97 Nasal 2.0 08:12 Cannula 11/01/18 98.4 07:33 10/30/18 21 19:54 Intake and Output 10/31/18 10/31/18 11/01/18 1515:00 23:00 07:00 IntakeIntake Total 50 ml 150 ml 300 ml BalanceBalance 50 ml 150 ml 300 ml Exam GENERAL: Elderly lady VITAL SIGNS: per chart NECK: Supple. No JVD or lymphadenopathy. CARDIAC EXAM: S1, S2. No added sounds or murmurs. CHEST: Bibasilar rales ABDOMEN: Soft, nontender. No guarding or rebound. EXTREMITIES: No cyanosis, clubbing NEUROLOGIC: Generalized weakness. Vent Setting Fraction of Inspired Oxygen pe: 21 Results/Medications Result Diagram: 10/31/18 0444 10/31/18 0444 Results 24 hrs Laboratory Tests Test 11/01/18 06:30 Lab Scanned Report REFERENCE LAB Medications Current Medications IV Flush (NS 3 ml) 3 ml PER PROTOCOL IV ; Start 10/25/18 at 14:30 Ondansetron HCl (Zofran Inj) 4 mg Q6H PRN IV NAUSEA/VOMITING; Start 10/25/18 at 14:30 Albuterol/ Ipratropium (Duoneb) 3 ml Q6HWA RESP THERAPY HHN Last administered on 11/01/18at 08:17; Admin Dose 3 ML; Start 10/25/18 at 20:00 Albuterol/ Ipratropium (Duoneb) 3 ml Q2H RESP THERAPY PRN HHN Dyspnea; Start 10/25/18 at 14:30 Bisacodyl (Dulcolax Supp) 10 mg DAILY PRN [place] CONSTIPATION; Start 10/25/18 at 15:30 Escitalopram Oxalate (Lexapro) 10 mg DAILY GTB Last administered on 11/01/18at 09:50; Admin Dose 10 MG; Start 10/26/18 at 09:00 Folic Acid (Folic Acid) 1 mg DAILY GTB Last administered on 11/01/18 09:50; Admin Dose 1 MG; Start 10/26/18 at 09:00 Latanoprost (Xalatan) 1 drop QHS BOTH EYES Last administered on 10/31/18 21:39; Admin Dose 1 DROP; Start 10/25/18 at 21:00 Levothyroxine Sodium (Synthroid) 50 mcg BEFORE BREAKFAST GTB Last administered on 11/01/18 06:03; Admin Dose 50 MCG; Start 10/26/18 at 07:00 Magnesium Hydroxide (Milk Of Mag) 30 ml DAILY GTB Last administered on 9at 09:51; Admin Dose 30 ML; Start 10/26/18 at 09:00 Sodium Biphosphate/ Sodium Phosphate (Fleet Enema) 133 ml DAILY PRN [place] CONSTIPATION; Start 10/25/18 at 15:30 Atropine Sulfate (Atropine (Syringe)) 0.5 mg PRN PRN IV heart rate less than 35 ; Start 10/25/18 at 22:00 Buspirone HCl (Buspar) 5 mg BID GTB Last administered on 11/01/18 09:50; Admin Dose 5 MG; Start 10/26/18 at 11:00 Enoxaparin Sodium (Lovenox) 30 mg DAILY SC Last administered on 11/01/18 09:55; Admin Dose 30 MG; Start 10/28/18 at 09:00 Hydralazine HCl (Apresoline) 10 mg Q6H PRN IV SBP>160 Last administered on 11/01/18 10:21; Admin Dose 10 MG; Start 10/28/18 at 09:30 Meropenem/Sodium Chloride 50 ml @ 100 mls/hr Q12 IVPB Last administered on 11/01/18 09:51; Admin Dose 100 MLS/HR; Start 10/30/18 at 10:30 Metronidazole 100 ml @ 100 mls/hr Q8 IVPB Last administered on 11/01/18 06:04; Admin Dose 100 MLS/HR; Start 10/30/18 at 14:00 Lansoprazole (Prevacid) 15 mg DAILY@06 GTB Last administered on 11/01/18 06:03; Admin Dose 15 MG; Start 10/31/18 at 06:00 Furosemide (Lasix) 40 mg DAILY IV Last administered on 11/01/18at 09:52; Admin Dose 40 MG; Start 10/31/18 at 09:00 Lactulose (Enulose) 30 gm TID GTB Last administered on 11/01/18at 09:51; Admin Dose 30 GM; Start 11/01/18 at 09:00 Metoprolol Tartrate (Lopressor) 25 mg BID GTB ; Start 11/01/18 at 09:00 Assessment/Plan Hospital Course (Demo Recall) IMPRESSION 1. Severe sepsis secondary to possible aspiration pneumonia and urinary tract infection. 2. Advanced dementia. 3. Dysphagia 4. History of hypertension. 5. Hypoxemic respiratory failure with pneumonia status post thoracentesis of right pleural effusion Plan 1. De-escalate antibiotics 2. Aspiration precautions. 3. Pleural fluid studies noted. 4. PEG feeding as tolerated 5. DVT and GI prophylaxis. Barger transfer or SNF today D[facility] ALANIS MD, [facility] Nov 01, 2018 11:20
--- NOTE | 2018-11-01 12:30 | DS ---
Date/Time of Note Date/Time of Note DATE: 11/01/18 TIME: 12:26 Discharge Summary Admission/Discharge Info Admit Date/Time Oct 25, 2018 at 11:10 Discharge Date/Time Discharge Diagnosis Acute diastolic CHF with acute hypoxic respiratory failure: s/p Sepsis: source:uti/aspiration pna Right pleural effusion Multidrug-resistant E. coli/ESBL UTI Hypertension. Hypothyroidism. Dysphagia. Essential hypertension Consults ,pulmonary ,GI Procedures Procedures 10/29/2018. IMPRESSION: 1. Satisfactory ultrasound-guided right thoracentesis. 10/25/2018 echocardiogram. Conclusions: Normal left ventricular systolic function. Normal left ventricular cavity size. Normal left ventricular wall thickness. Ejection fraction is visually estimated at 55-60 %. Tissue Doppler/Mitral Doppler indices are consistent with pseudonormalization with mildly elevated left atrial pressure (Stage II diastolic dysfunction). Normal right ventricular size. Normal right ventricular systolic function. The left atrium is normal in size. The right atrium is normal in size. Not well visualized. Moderate mitral valve regurgitation. No hemodynamically significant aortic stenosis by doppler. Mild to moderate aortic valve regurgitation. Estimated peak PA systolic pressure 35 mmHg. There is moderate tricuspid regurgitation. Normal pericardium with no significant pericardial effusion. Pleural effusion seen. Electronically Signed By: Lon Marroquin 2018-10-28 14:42:03 PDT 10/30/2017. Replacement G-tube. Hospital Course :88 year old female with past medical history of hypertension, hyperlipidemia, hypothyroidism, dementia, dysphagia status post G-tube placement, and carotid artery disease transferred from the SNF w/resp distress and dislodged G-tube, found to have sepsis/uti/ pna/CHF exacerbation.. She was treated with appropriate antimicrobial, he was also noted with multidrug-resistant E. coli/ESBL UTI for which she also received meropenem. Res p status improved and she was able to tolerate oxygen via nasal cannula. She was continued on appropriate anaerobic coverage for possible aspiration pneumonia as well. Hospitalization was also noted for right-sided pleural effusion for which she underwent thoracentesis with pathology negative for malignancy. Patient also was treated with IV diuretics and beta-blockers for acute diastolic heart failure. Patient's respiratory status was optimized and then she underwent new G-tube placement on 10/30/2018. Patient was then started on tube feeding via G-tube. Her labs and vital signs stable and respiratory status stable enough to be discharged back to SNF. Approximately 60-minute was spent on coordinating the discharge on this patient. Patient was seen in collaboration with Dr. Farrar. Home Meds Reported Medications Magnesium Hydroxide* (Milk Of Magnesia*) 400 Mg/5 Ml Oral.susp, 30 ML GTB DAILY, ML 10/25/18 Bisacodyl (Dulcolax) 10 Mg Supp.rect, 10 MG RC DAILY PRN for CONSTIPATION, SUPP.RECT 10/25/18 Na Phos,M-B/Na Phos,Di-Ba (ENEMA [id number]) 133 Ml Enema, 133 ML RC EVERY 72 HOURS PRN for CONSTIPATION, ENEMA 10/25/18 Buspirone Hcl* (Buspirone Hcl*) 10 Mg Tab, 5 MG GTB BID, TAB 10/25/18 Escitalopram Oxalate* (Lexapro*) 10 Mg Tablet, 10 MG GTB DAILY, #30 TAB 10/25/18 Ferrous Sulfate* (Ferrous Sulfate*) 325 Mg Tabec, 325 MG GTB DAILY, TAB 10/25/18 Folic Acid* (Folic Acid*) 1 Mg Tablet, 1 MG GTB DAILY, TAB 10/25/18 Lactulose* (Lactulose*) 20 Gm/30 Ml Solution, 30 GM PO TID, ML 10/25/18 Latanoprost (Latanoprost) 2.5 Ml Drops, 1 DROP BOTH EYES QHS, #1 BOTTLE 10/25/18 Levothyroxine Sodium* (Levoxyl*) 50 Mcg Tablet, 50 MCG GTB BEFORE BREAKFAST, #30 TAB GIVE 30MIN PRIOR TO START OF GT FEEDING ON EMPTY STOMACH 10/25/18 Aspirin (Low Dose Aspirin) 81 Mg Tablet.dr, 81 MG GTB DAILY, #30 TAB 10/25/18 Amlodipine Besylate* (Norvasc*) 5 Mg Tablet, 5 MG GTB DAILY, TAB HOLD FOR SBP <110 10/25/18 Discontinued Reported Medications Latanoprost (Latanoprost) 2.5 Ml Drops, 1 DROP BOTH EYES QHS, #1 BOTTLE 01/17/16 Brimonidine/Timolol* (Combigan*) 10 Ml Drops, 1 DROP BOTH EYES BID, EA 01/17/16 Olmesartan Medoxomil (Benicar) 40 Mg Tablet, 40 MG PO DAILY, #30 TAB 01/17/16 Simvastatin (Simvastatin) 20 Mg Tablet, 20 MG PO DAILY, #30 TAB 01/17/16 Amlodipine Besylate* (Amlodipine Besylate*) 10 Mg Tablet, 10 MG PO DAILY, #30 TAB 01/17/16 Levothyroxine Sodium* (Levothyroxine Sodium*) 100 Mcg Tablet, 100 MCG PO BEFORE BREAKFAST, #30 TAB 01/17/16 Aspirin* (Aspirin* Chew) 81 Mg Tab.chew, 81 MG PO DAILY, TAB.CHEW 01/17/16 Discontinued Scripts Sulfamethoxazole-Trimethoprim* (Bactrim* DS) 800-160 Mg Tab, 1 TAB PO BID, #20 TAB Prov:JOAN MURPHY NP 01/20/16 Olanzapine* (Zyprexa*) 2.5 Mg Tablet, 2.5 MG PO DAILY for 30 Days, TAB Prov:JOAN MURPHY NP 01/20/16 Donepezil* (Aricept*) 5 Mg Tablet, 5 MG PO DAILY for 30 Days, TAB Prov:JOAN MURPHY V. DIETARY DIRECTOR 01/20/16 Follow-up Plan TO [facility] Primary Care Provider Care Physician No Primary Pending Labs Laboratory Tests Test 11/01/18 06:30 Lab Scanned Report [facility] [id number] JOAN MURPHY NP Nov 01, 2018 12:30
[2018-11-01] MEDS: AMLODIPINE 5 MG TAB GTB SCH (12:34)
[2018-11-01] MEDS: HYDROCODONE/APAP (5/325) TAB GTB PRN ×2 (12:34→20:21)
[2018-11-01] MEDS ORDERED: hydrALAzine 20 MG INJ IV ONE ×2 (14:30→21:00)
[2018-11-01] MEDS: LATANOPROST 0.005% 2.5 ML OPH BOTH EYES SCH (20:20)
[2018-11-01] MEDS ORDERED: ERTA1VIA3 IV* (22:01)
[2018-11-02] VITALS (7 sets, daily range): BP systolic 119–169; BP diastolic 58–108; PULSE 59–64; RESP 16–18
[2018-11-02] MEDS: metroNIDAZOLE 500 MG/NS (PMX) 100 ML IVPB SCH ×3 (05:57→22:53)
[2018-11-02] MEDS: LEVOTHYROXINE 50 MCG TAB GTB SCH (05:58)
[2018-11-02] MEDS: LANSOPRAZOLE 15 MG CAP GTB SCH (05:58)
[2018-11-02] MEDS: ALBUTEROL/IPRATROPIUM (NEB) 3 ML AMP HHN SCH ×3 (07:31→21:01)
[2018-11-02] MEDS: AMLODIPINE 5 MG TAB GTB SCH (09:54)
[2018-11-02] MEDS: BUSPIRONE 5 MG TAB GTB SCH ×2 (09:54→21:39)
[2018-11-02] MEDS: LACTULOSE 30ML CUP GTB SCH ×3 (09:54→21:39)
[2018-11-02] MEDS: ESCITALOPRAM 10 MG TAB GTB SCH (09:54)
[2018-11-02] MEDS: METOPROLOL 25 MG TAB GTB SCH ×2 (09:54→21:43)
[2018-11-02] MEDS: MAGNESIUM HYDROXIDE 30ML CUP GTB SCH (09:54)
[2018-11-02] MEDS: FOLIC ACID 1 MG TAB GTB SCH (09:54)
[2018-11-02] MEDS: MEROPENEM 1 GM/50ML(PMX) 50 ML IVPB SCH ×2 (09:54→21:39)
[2018-11-02] MEDS: ENOXAPARIN 30 MG/0.3 ML SYG SC SCH (09:57)
[2018-11-02] MEDS: FUROSEMIDE 20 MG INJ IV SCH (10:04)
--- NOTE | 2018-11-02 11:12 | PN ---
Date/Time of Note Date/Time of Note DATE: 11/02/18 TIME: 11:07 Assessment/Plan VTE Prophylaxis Risk score (from Ns)>0 risk: 6 SCD applied (from [facility]): Yes Pharmacological prophylaxis: heparin Lines/Catheters IV Catheter Type (from [facility]): Peripheral IV Urinary Cath still in place: Yes Reason Cath still needed: urinary retention Assessment/Plan Problems: (1) UTI due to extended-spectrum beta lactamase (ESBL) producing Escherichia coli Status: Acute Comment: Is on next standard antibiotics. Please note this is created a road block to discharging her to the ECF due to the need for isolation and the continued IV antibiotics. Continue care until the ECF can accept her please see the case management notes (2) Grade II diastolic dysfunction Status: Chronic Comment: Noted. Careful rate and blood pressure control (3) Diastolic dysfunction with heart failure Status: Chronic Comment: Approved with aggressive treatment Qualifiers: Heart failure chronicity: acute Qualified Codes: I50.31 - Acute diastolic (congestive) heart failure (4) Pleural effusion on right Status: Acute Comment: As post thoracentesis, follow-up chest x-ray (5) Thrombocytopenia Comment: Noted. (6) Anemia Status: Chronic Comment: Basic evaluation. 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 Result Diagram: 10/31/18 0444 10/31/18 0444 Subjective 24 Hr Interval Summary Free Text/Dictation Debilitated elderly female who is nonverbal at this time Subjective hx not possible: pt non-verbal Exam/Review of Systems Exam Vitals Vital Signs Date Temp Pulse Resp B/P (MAP) Pulse Ox O2 O2 Flow FiO2 Time Delivery Rate 11/02/18 97.6 60 18 119/78 100 07:52 (92) 11/02/18 Nasal 2.0 07:31 Cannula 10/30/18 21 19:54 Intake and Output 11/01/18 11/01/18 11/02/18 1414:59 22:59 06:59 IntakeIntake Total 150 ml 610 ml 100 ml OutputOutput Total 200 ml 300 ml 200 ml BalanceBalance -50 ml 310 ml -100 ml Exam Debilitated elderly female who is nonverbal at this time Constitutional: non-verbal Respiratory: clear to auscultation, normal air movement Cardiovascular: regular rate and rhythm, nl pulses Musculoskeletal: other (Still muscular atrophy) Medications Medication Current Medications IV Flush (NS 3 ml) 3 ml PER PROTOCOL IV ; Start 10/25/18 at 14:30 Ondansetron HCl (Zofran Inj) 4 mg Q6H PRN IV NAUSEA/VOMITING; Start 10/25/18 at 14:30 Albuterol/ Ipratropium (Duoneb) 3 ml Q6HWA RESP THERAPY HHN Last administered on 11/02/18 07:31; Admin Dose 3 ML; Start 10/25/18 at 20:00 Albuterol/ Ipratropium (Duoneb) 3 ml Q2H RESP THERAPY PRN HHN Dyspnea; Start 10/25/18 at 14:30 Bisacodyl (Dulcolax Supp) 10 mg DAILY PRN [place] CONSTIPATION; Start 10/25/18 at 15:30 Escitalopram Oxalate (Lexapro) 10 mg DAILY GTB Last administered on 11/02/18 09:54; Admin Dose 10 MG; Start 10/26/18 at 09:00 Folic Acid (Folic Acid) 1 mg DAILY GTB Last administered on 11/02/18 09:54; Admin Dose 1 MG; Start 10/26/18 at 09:00 Latanoprost (Xalatan) 1 drop QHS BOTH EYES Last administered on 11/01/18 20:20; Admin Dose 1 DROP; Start 10/25/18 at 21:00 Levothyroxine Sodium (Synthroid) 50 mcg BEFORE BREAKFAST GTB Last administered on 11/02/18 05:58; Admin Dose 50 MCG; Start 10/26/18 at 07:00 Magnesium Hydroxide (Milk Of Mag) 30 ml DAILY GTB Last administered on 11/02/18 09:54; Admin Dose 30 ML; Start 10/26/18 at 09:00 Sodium Biphosphate/ Sodium Phosphate (Fleet Enema) 133 ml DAILY PRN [place] CONSTIPATION; Start 10/25/18 at 15:30 Atropine Sulfate (Atropine (Syringe)) 0.5 mg PRN PRN IV heart rate less than 35 ; Start 10/25/18 at 22:00 Buspirone HCl (Buspar) 5 mg BID GTB Last administered on 11/02/18 09:54; Admin Dose 5 MG; Start 10/26/18 at 11:00 Enoxaparin Sodium (Lovenox) 30 mg DAILY SC Last administered on 11/02/18 09:57; Admin Dose 30 MG; Start 10/28/18 at 09:00 Meropenem/Sodium Chloride 50 ml @ 100 mls/hr Q12 IVPB Last administered on 11/02/18 09:54; Admin Dose 100 MLS/HR; Start 10/30/18 at 10:30 Metronidazole 100 ml @ 100 mls/hr Q8 IVPB Last administered on 11/02/18 05:57; Admin Dose 100 MLS/HR; Start 10/30/18 at 14:00 Lansoprazole (Prevacid) 15 mg DAILY@06 GTB Last administered on 11/02/18 05:58; Admin Dose 15 MG; Start 10/31/18 at 06:00 Furosemide (Lasix) 40 mg DAILY IV Last administered on 11/02/18 10:04; Admin Dose 40 MG; Start 10/31/18 at 09:00 Lactulose (Enulose) 30 gm TID GTB Last administered on 11/02/18 09:54; Admin Dose 30 GM; Start 11/01/18 at 09:00 Metoprolol Tartrate (Lopressor) 25 mg BID GTB Last administered on 11/02/18 09:54; Admin Dose 25 MG; Start 11/01/18 at 09:00 Amlodipine Besylate (Norvasc) 5 mg DAILY GTB Last administered on 11/02/18 09:54; Admin Dose 5 MG; Start 11/01/18 at 12:30 Acetaminophen/ Hydrocodone Bitart ([place] (5/325)) 1 tab Q4H PRN GTB MODERATE PAIN LEVEL 4-6 Last administered on 11/01/18 20:21; Admin Dose 1 TAB; Start 11/01/18 at 12:30 SANDRO NAZARIO MD Nov 02, 2018 11:12
[2018-11-02] MEDS: HYDROCODONE/APAP (5/325) TAB GTB PRN (15:47)
--- NOTE | 2018-11-02 21:33 | CONS ---
Consult Date/Type/Reason Admit Date/Time Oct 25, 2018 at 11:10 Initial Consult Date 10/27/18 Type of Consultation: Pulm Requesting Provider: ADRIANE MAHMOOD NP Date/Time of Note DATE: 11/02/18 TIME: 21:31 Subjective No events overnight. Objective Vitals Vital Signs Date Temp Pulse Resp B/P (MAP) Pulse Ox O2 O2 Flow FiO2 Time Delivery Rate 11/02/18 1.0 21:08 11/02/18 63 18 98 Nasal 21:05 Cannula 11/02/18 98.1 137/60 19:49 (85) 10/30/18 21 19:54 Intake and Output 11/01/18 11/01/18 11/02/18 1515:00 23:00 07:00 IntakeIntake Total 150 ml 610 ml 100 ml OutputOutput Total 200 ml 300 ml 200 ml BalanceBalance -50 ml 310 ml -100 ml Exam HEENT: Neck supple; no JVD; no LAD CVS: RRR, S1 and S2 CHEST: Clear ABD: Soft, NT, + BS EXT: No c/c/e Results/Medications Result Diagram: 10/31/18 0444 10/31/18 0444 Results 24 hrs Laboratory Tests Test 11/02/18 12:44 Iron Level 52 Total Iron Binding Capacity 187 L Percent Iron Saturation 28 Ferritin 206.0 Home Meds Active Scripts Ertapenem Sodium (Invanz) 1 Gm Vial, 1 GM IV* DAILY for 5 Days, VIAL Prov:JOAN MURPHY V. [employer] FOUNDER AND PRESIDENT 11/01/18 Furosemide* (Lasix*) 40 Mg Tablet, 40 MG PO DAILY for 14 Days, TAB Prov:JOAN MURPHY V. [employer] FOUNDER AND PRESIDENT 10/31/18 Ipratropium-Albuterol (Ipratropium-Albuterol) 0.5-3 Mg/3 Ml Ampul.neb, 3 ML HHN Q2H RESP THERAPY PRN for Dyspnea for 30 Days Prov:JOAN MURPHY V. [employer] FOUNDER AND PRESIDENT 10/31/18 Ipratropium-Albuterol (Ipratropium-Albuterol) 0.5-3 Mg/3 Ml Ampul.neb, 3 ML HHN Q6HWA RESP THERAPY for 30 Days Prov:JOAN MURPHY VRenard [employer] FOUNDER AND PRESIDENT 10/31/18 Metoprolol Tartrate* (Lopressor*) 25 Mg Tab, 25 MG PO BID, #60 TAB Prov:MURPHYHALJOAN V. [employer] FOUNDER AND PRESIDENT 10/31/18 Metronidazole* (Metronidazole*) 500 Mg Tablet, 500 MG G-TUBE Q8 for 5 Days, TAB Prov:MURPHY,JOAN V. [employer] FOUNDER AND PRESIDENT 10/31/18 Meropenem (Merrem) 1 Gm Vial, 1 GM IV Q12 for 5 Days, VIAL Prov:MURPHYDELICIAA V. [employer] FOUNDER AND PRESIDENT 10/31/18 Reported Medications Magnesium Hydroxide* (Milk Of Magnesia*) 400 Mg/5 Ml Oral.susp, 30 ML GTB DAILY, ML 10/25/18 Bisacodyl (Dulcolax) 10 Mg Supp.rect, 10 MG RC DAILY PRN for CONSTIPATION, SUPP.RECT 10/25/18 Buspirone Hcl* (Buspirone Hcl*) 10 Mg Tab, 5 MG GTB BID, TAB 10/25/18 Escitalopram Oxalate* (Lexapro*) 10 Mg Tablet, 10 MG GTB DAILY, #30 TAB 10/25/18 Ferrous Sulfate* (Ferrous Sulfate*) 325 Mg Tabec, 325 MG GTB DAILY, TAB 10/25/18 Folic Acid* (Folic Acid*) 1 Mg Tablet, 1 MG GTB DAILY, TAB 10/25/18 Lactulose* (Lactulose*) 20 Gm/30 Ml Solution, 30 GM PO TID, ML 10/25/18 Latanoprost (Latanoprost) 2.5 Ml Drops, 1 DROP BOTH EYES QHS, #1 BOTTLE 10/25/18 Levothyroxine Sodium* (Levoxyl*) 50 Mcg Tablet, 50 MCG GTB BEFORE BREAKFAST, #30 TAB GIVE 30MIN PRIOR TO START OF GT FEEDING ON EMPTY STOMACH 10/25/18 Aspirin (Low Dose Aspirin) 81 Mg Tablet.dr, 81 MG GTB DAILY, #30 TAB 10/25/18 Discontinued Reported Medications Na Phos,M-B/Na Phos,Di-Ba (ENEMA [id number]) 133 Ml Enema, 133 ML RC EVERY 72 HOURS PRN for CONSTIPATION, ENEMA 10/25/18 Amlodipine Besylate* (Norvasc*) 5 Mg Tablet, 5 MG GTB DAILY, TAB HOLD FOR SBP <110 10/25/18 Medications Current Medications IV Flush (NS 3 ml) 3 ml PER PROTOCOL IV ; Start 10/25/18 at 14:30 Ondansetron HCl (Zofran Inj) 4 mg Q6H PRN IV NAUSEA/VOMITING; Start 10/25/18 at 14:30 Albuterol/ Ipratropium (Duoneb) 3 ml Q6HWA RESP THERAPY HHN Last administered on 11/02/18 21:01; Admin Dose 3 ML; Start 10/25/18 at 20:00 Albuterol/ Ipratropium (Duoneb) 3 ml Q2H RESP THERAPY PRN HHN Dyspnea; Start 10/25/18 at 14:30 Bisacodyl (Dulcolax Supp) 10 mg DAILY PRN IN CONSTIPATION; Start 10/25/18 at 15:30 Escitalopram Oxalate (Lexapro) 10 mg DAILY GTB Last administered on 11/02/18 09:54; Admin Dose 10 MG; Start 10/26/18 at 09:00 Folic Acid (Folic Acid) 1 mg DAILY GTB Last administered on 11/02/18 09:54; Admin Dose 1 MG; Start 10/26/18 at 09:00 Latanoprost (Xalatan) 1 drop QHS BOTH EYES Last administered on 11/01/18 20:20; Admin Dose 1 DROP; Start 10/25/18 at 21:00 Levothyroxine Sodium (Synthroid) 50 mcg BEFORE BREAKFAST GTB Last administered on 11/02/18 05:58; Admin Dose 50 MCG; Start 10/26/18 at 07:00 Magnesium Hydroxide (Milk Of Mag) 30 ml DAILY GTB Last administered on 11/02/18 09:54; Admin Dose 30 ML; Start 10/26/18 at 09:00 Sodium Biphosphate/ Sodium Phosphate (Fleet Enema) 133 ml DAILY PRN IN CONSTIPATION; Start 10/25/18 at 15:30 Atropine Sulfate (Atropine (Syringe)) 0.5 mg PRN PRN IV heart rate less than 35 ; Start 10/25/18 at 22:00 Buspirone HCl (Buspar) 5 mg BID GTB Last administered on 11/02/18 09:54; Admin Dose 5 MG; Start 10/26/18 at 11:00 Enoxaparin Sodium (Lovenox) 30 mg DAILY SC Last administered on 11/02/18 09:57; Admin Dose 30 MG; Start 10/28/18 at 09:00 Meropenem/Sodium Chloride 50 ml @ 100 mls/hr Q12 IVPB Last administered on 11/02/18 09:54; Admin Dose 100 MLS/HR; Start 10/30/18 at 10:30 Metronidazole 100 ml @ 100 mls/hr Q8 IVPB Last administered on 11/02/18 14:06; Admin Dose 100 MLS/HR; Start 10/30/18 at 14:00 Lansoprazole (Prevacid) 15 mg DAILY@06 GTB Last administered on 11/02/18 05:58; Admin Dose 15 MG; Start 10/31/18 at 06:00 Furosemide (Lasix) 40 mg DAILY IV Last administered on 11/02/18 10:04; Admin Dose 40 MG; Start 10/31/18 at 09:00 Lactulose (Enulose) 30 gm TID GTB Last administered on 11/02/18 13:56; Admin Dose 30 GM; Start 11/01/18 at 09:00 Metoprolol Tartrate (Lopressor) 25 mg BID GTB Last administered on 11/02/18 09:54; Admin Dose 25 MG; Start 11/01/18 at 09:00 Amlodipine Besylate (Norvasc) 5 mg DAILY GTB Last administered on 11/02/18 09:54; Admin Dose 5 MG; Start 11/01/18 at 12:30 Acetaminophen/ Hydrocodone Bitart ([place] (5/325)) 1 tab Q4H PRN GTB MODERATE PAIN LEVEL 4-6 Last administered on 11/02/18 15:47; Admin Dose 1 TAB; Start 11/01/18 at 12:30 Assessment/Plan Assessment/Plan (Daily) IMP: 1. Severe sepsis secondary to possible aspiration pneumonia and urinary tract infection. 2. Advanced dementia. 3. Dysphagia 4. History of hypertension. 5. Lymphocytic predominant exudative right pleural effusion--complicated by small PTX RECS: 1. Am end-expiratory CXR 2. Follow-up pleural fluid cytology and ADA DARIELA ACOSTA MD Nov 02, 2018 21:33
[2018-11-02] MEDS: LATANOPROST 0.005% 2.5 ML OPH BOTH EYES SCH (21:38)
[2018-11-03 02:09] VITALS: BP 159/71; PULSE 60; RESP 18
[2018-11-03] MEDS: LANSOPRAZOLE 15 MG CAP GTB SCH (06:06)
[2018-11-03] MEDS: LEVOTHYROXINE 50 MCG TAB GTB SCH (06:06)
[2018-11-03] MEDS: metroNIDAZOLE 500 MG/NS (PMX) 100 ML IVPB SCH ×3 (06:07→21:47)
[2018-11-03] MEDS: ALBUTEROL/IPRATROPIUM (NEB) 3 ML AMP HHN SCH ×3 (07:55→20:55)
[2018-11-03 08:15] VITALS: BP 162/114; PULSE 65; RESP 18
[2018-11-03] MEDS: BUSPIRONE 5 MG TAB GTB SCH ×2 (10:16→20:51)
[2018-11-03] MEDS: MAGNESIUM HYDROXIDE 30ML CUP GTB SCH (10:16)
[2018-11-03] MEDS: FOLIC ACID 1 MG TAB GTB SCH (10:17)
[2018-11-03] MEDS: AMLODIPINE 5 MG TAB GTB SCH (10:17)
[2018-11-03] MEDS: ESCITALOPRAM 10 MG TAB GTB SCH (10:17)
[2018-11-03] MEDS: FUROSEMIDE 20 MG INJ IV SCH (10:18)
[2018-11-03] MEDS: MEROPENEM 1 GM/50ML(PMX) 50 ML IVPB SCH ×2 (10:18→20:52)
[2018-11-03] MEDS: METOPROLOL 25 MG TAB GTB SCH ×2 (10:18→20:52)
[2018-11-03] MEDS: LACTULOSE 30ML CUP GTB SCH ×3 (10:19→20:51)
[2018-11-03] MEDS: ENOXAPARIN 30 MG/0.3 ML SYG SC SCH (10:24)
[2018-11-03] MEDS ORDERED: LACTATED RINGER'S 500 ML IV ONE (10:30)
--- NOTE | 2018-11-03 10:34 | PN ---
Date/Time of Note Date/Time of Note DATE: 11/03/18 TIME: 10:31 Assessment/Plan VTE Prophylaxis Risk score (from [facility])>0 risk: 7 SCD applied (from [facility]): Yes Pharmacological prophylaxis: heparin Lines/Catheters IV Catheter Type (from [facility]): [place] Urinary Cath still in place: Yes Reason Cath still needed: skin wounds contaminated by urine Assessment/Plan Problems: (1) UTI due to extended-spectrum beta lactamase (ESBL) producing Escherichia coli Status: Acute Comment: On antibiotic therapy and stable. Overall prognosis limited (2) Diastolic dysfunction with heart failure Status: Chronic Comment: On medications. Noted better control blood pressure Qualifiers: Heart failure chronicity: acute Qualified Codes: I50.31 - Acute diastolic (congestive) heart failure (3) Grade II diastolic dysfunction Status: Chronic Comment: Titrate blood pressure medications. This case and when he is in alpha-forrest since with the patient being nonambulatory and bedbound we do not have to worry about orthostasis (4) Thrombocytopenia Status: Chronic Comment: SPEP pending. (5) Organic brain syndrome (chronic) Status: Chronic Comment: Noted and unchanging. (6) Senile debility Status: Chronic Comment: Noted. Will need place (7) Chronic kidney disease, stage III (moderate) Status: Chronic Comment: Noted. (8) Ambulatory dysfunction Status: Chronic Comment: Chronic and not able to be resolved (9) Acquired hypothyroidism Status: Chronic Comment: Stable on replacement therapy (10) Essential hypertension Status: Chronic Comment: To adjust medication Result Diagram: 10/31/18 0444 10/31/18 0444 Results 24hrs Laboratory Tests Test 11/02/18 12:44 Iron Level 52 Total Iron Binding Capacity 187 L Percent Iron Saturation 28 Ferritin 206.0 Total Protein (PEP) 7.2 Albumin (PEP) Pending Cpmwh-[id number] Pending Hlxxi-1-Fiebozkpy Pending Beta Globulins Pending Gamma Globulins Pending Protein Electrophoresis Interpret Pending Subjective 24 Hr Interval Summary Subjective hx not possible: pt non-verbal Exam/Review of Systems Exam Vitals Vital Signs Date Temp Pulse Resp B/P (MAP) Pulse Ox O2 O2 Flow FiO2 Time Delivery Rate 11/03/18 97.8 65 18 162/114 100 08:15 (130) 11/03/18 Nasal 1.0 07:55 Cannula 10/30/18 21 19:54 Intake and Output 11/02/18 11/02/18 11/03/18 1515:00 23:00 07:00 IntakeIntake Total 150 ml 850 ml 910 ml OutputOutput Total 500 ml BalanceBalance 150 ml 350 ml 910 ml Constitutional: non-verbal Respiratory: clear to auscultation, normal air movement Gastrointestinal: soft, nl liver, spleen, non-tender Extremities: normal pulses Results Results 24hrs Laboratory Tests Test 11/02/18 12:44 Iron Level 52 Total Iron Binding Capacity 187 L Percent Iron Saturation 28 Ferritin 206.0 Total Protein (PEP) 7.2 Albumin (PEP) Pending Nvvzc-1-Tkaihhjev Pending Wlckz-1-Umabpmycy Pending Beta Globulins Pending Gamma Globulins Pending Protein Electrophoresis Interpret Pending Medications Medication Current Medications IV Flush (NS 3 ml) 3 ml PER PROTOCOL IV ; Start 10/25/18 at 14:30 Ondansetron HCl (Zofran Inj) 4 mg Q6H PRN IV NAUSEA/VOMITING; Start 10/25/18 at 14:30 Albuterol/ Ipratropium (Duoneb) 3 ml Q6HWA RESP THERAPY HHN Last administered on 11/03/18at 07:55; Admin Dose 3 ML; Start 10/25/18 at 20:00 Albuterol/ Ipratropium (Duoneb) 3 ml Q2H RESP THERAPY PRN HHN Dyspnea; Start 10/25/18 at 14:30 Bisacodyl (Dulcolax Supp) 10 mg DAILY PRN [place] CONSTIPATION; Start 10/25/18 at 15:30 Escitalopram Oxalate (Lexapro) 10 mg DAILY GTB Last administered on 11/03/18 10:17; Admin Dose 10 MG; Start 10/26/18 at 09:00 Folic Acid (Folic Acid) 1 mg DAILY GTB Last administered on 11/03/18 10:17; Admin Dose 1 MG; Start 10/26/18 at 09:00 Latanoprost (Xalatan) 1 drop QHS BOTH EYES Last administered on 11/02/18at 21:38; Admin Dose 1 DROP; Start 10/25/18 at 21:00 Levothyroxine Sodium (Synthroid) 50 mcg BEFORE BREAKFAST GTB Last administered on 11/03/18 06:06; Admin Dose 50 MCG; Start 10/26/18 at 07:00 Magnesium Hydroxide (Milk Of Mag) 30 ml DAILY GTB Last administered on 11/03/18 10:16; Admin Dose 30 ML; Start 10/26/18 at 09:00 Sodium Biphosphate/ Sodium Phosphate (Fleet Enema) 133 ml DAILY PRN [place] CONSTIPATION; Start 10/25/18 at 15:30 Atropine Sulfate (Atropine (Syringe)) 0.5 mg PRN PRN IV heart rate less than 35 ; Start 10/25/18 at 22:00 Buspirone HCl (Buspar) 5 mg BID GTB Last administered on 11/03/18 10:16; Admin Dose 5 MG; Start 10/26/18 at 11:00 Enoxaparin Sodium (Lovenox) 30 mg DAILY SC Last administered on 11/03/18 10:24; Admin Dose 30 MG; Start 10/28/18 at 09:00 Meropenem/Sodium Chloride 50 ml @ 100 mls/hr Q12 IVPB Last administered on 11/03/18 10:18; Admin Dose 100 MLS/HR; Start 10/30/18 at 10:30 Metronidazole 100 ml @ 100 mls/hr Q8 IVPB Last administered on 11/03/18 06:07; Admin Dose 100 MLS/HR; Start 10/30/18 at 14:00 Lansoprazole (Prevacid) 15 mg DAILY@06 GTB Last administered on 11/03/18 06:06; Admin Dose 15 MG; Start 10/31/18 at 06:00 Furosemide (Lasix) 40 mg DAILY IV Last administered on 11/03/18 10:18; Admin D ose 40 MG; Start 10/31/18 at 09:00 Lactulose (Enulose) 30 gm TID GTB Last administered on 11/03/18 10:19; Admin Dose 30 GM; Start 11/01/18 at 09:00 Metoprolol Tartrate (Lopressor) 25 mg BID GTB Last administered on 11/03/18 10:18; Admin Dose 25 MG; Start 11/01/18 at 09:00 Amlodipine Besylate (Norvasc) 5 mg DAILY GTB Last administered on 11/03/18 10:17; Admin Dose 5 MG; Start 11/01/18 at 12:30 Acetaminophen/ Hydrocodone Bitart ([place] (5/325)) 1 tab Q4H PRN GTB MODERATE PAIN LEVEL 4-6 Last administered on 11/02/18at 15:47; Admin Dose 1 TAB; Start 11/01/18 at 12:30 SANDRO NAZARIO MD Nov 03, 2018 10:34
[2018-11-03] MEDS ORDERED: DOXAZOSIN 1 MG TAB GTB ONE (11:15)
[2018-11-03 14:35] VITALS: BP 136/95; PULSE 65; RESP 18
--- NOTE | 2018-11-03 16:11 | CONS ---
Consult Date/Type/Reason Admit Date/Time Oct 25, 2018 at 11:10 Initial Consult Date 10/27/18 Type of Consultation: Pulm Requesting Provider: ADRIANE MAHMOOD NP Date/Time of Note DATE: 11/03/18 TIME: 16:10 Subjective No events overnight. Objective Vitals Vital Signs Date Temp Pulse Resp B/P (MAP) Pulse Ox O2 O2 Flow FiO2 Time Delivery Rate 11/03/18 98.5 65 18 136/95 99 14:35 (109) 11/03/18 Nasal 1.0 13:06 Cannula 10/30/18 19:54 Intake and Output 11/02/18 11/02/18 11/03/18 1515:00 23:00 07:00 IntakeIntake Total 150 ml 850 ml 910 ml OutputOutput Total 500 ml BalanceBalance 150 ml 350 ml 910 ml Exam HEENT: Neck supple; no JVD; no LAD CVS: RRR, S1 and S2 CHEST: Diminished BS right base ABD: Soft, NT, + BS EXT: No c/c/e Results/Medications Result Diagram: 10/31/1844310/31/18443 Home Meds Active Scripts Ertapenem Sodium (Invanz) 1 Gm Vial, 1 GM IV* DAILY for 5 Days, VIAL Prov:MURPHY,JOAN V. SAWMILL HAND 11/01/18 Furosemide* (Lasix*) 40 Mg Tablet, 40 MG PO DAILY for 14 Days, TAB Prov:MURPHYHALJOAN V. SAWMILL HAND 10/31/18 Ipratropium-Albuterol (Ipratropium-Albuterol) 0.5-3 Mg/3 Ml Ampul.neb, 3 ML HHN Q2H RESP THERAPY PRN for Dyspnea for 30 Days Prov:MURPHY,JOAN V. SAWMILL HAND 10/31/18 Ipratropium-Albuterol (Ipratropium-Albuterol) 0.5-3 Mg/3 Ml Ampul.neb, 3 ML HHN Q6HWA RESP THERAPY for 30 Days Prov:MURPHY,JOAN V. SAWMILL HAND 10/31/18 Metoprolol Tartrate* (Lopressor*) 25 Mg Tab, 25 MG PO BID, #60 TAB Prov:MURPHYJOAN V. SAWMILL HAND 10/31/18 Metronidazole* (Metronidazole*) 500 Mg Tablet, 500 MG G-TUBE Q8 for 5 Days, TAB Prov:JOAN MURPHY V. SAWMILL HAND 10/31/18 Meropenem (Merrem) 1 Gm Vial, 1 GM IV Q12 for 5 Days, VIAL Prov:HAL MURPHYDYA V. SAWMILL HAND 10/31/18 Reported Medications Magnesium Hydroxide* (Milk Of Magnesia*) 400 Mg/5 Ml Oral.susp, 30 ML GTB DAILY, ML 10/25/18 Bisacodyl (Dulcolax) 10 Mg Supp.rect, 10 MG RC DAILY PRN for CONSTIPATION, SUPP.RECT 10/25/18 Buspirone Hcl* (Buspirone Hcl*) 10 Mg Tab, 5 MG GTB BID, TAB 10/25/18 Escitalopram Oxalate* (Lexapro*) 10 Mg Tablet, 10 MG GTB DAILY, #30 TAB 10/25/18 Ferrous Sulfate* (Ferrous Sulfate*) 325 Mg Tabec, 325 MG GTB DAILY, TAB 10/25/18 Folic Acid* (Folic Acid*) 1 Mg Tablet, 1 MG GTB DAILY, TAB 10/25/18 Lactulose* (Lactulose*) 20 Gm/30 Ml Solution, 30 GM PO TID, ML 10/25/18 Latanoprost (Latanoprost) 2.5 Ml Drops, 1 DROP BOTH EYES QHS, #1 BOTTLE 10/25/18 Levothyroxine Sodium* (Levoxyl*) 50 Mcg Tablet, 50 MCG GTB BEFORE BREAKFAST, #30 TAB GIVE 30MIN PRIOR TO START OF GT FEEDING ON EMPTY STOMACH 10/25/18 Aspirin (Low Dose Aspirin) 81 Mg Tablet.dr, 81 MG GTB DAILY, #30 TAB 10/25/18 Discontinued Reported Medications Na Phos,M-B/Na Phos,Di-Ba (ENEMA [id number]) 133 Ml Enema, 133 ML RC EVERY 72 HOURS PRN for CONSTIPATION, ENEMA 10/25/18 Amlodipine Besylate* (Norvasc*) 5 Mg Tablet, 5 MG GTB DAILY, TAB HOLD FOR SBP <110 10/25/18 Medications Current Medications IV Flush (NS 3 ml) 3 ml PER PROTOCOL IV ; Start 10/25/18 at 14:30 Ondansetron HCl (Zofran Inj) 4 mg Q6H PRN IV NAUSEA/VOMITING; Start 10/25/18 at 14:30 Albuterol/ Ipratropium (Duoneb) 3 ml Q6HWA RESP THERAPY HHN Last administered on 11/03/18 13:05; Admin Dose 3 ML; Start 10/25/18 at 20:00 Albuterol/ Ipratropium (Duoneb) 3 ml Q2H RESP THERAPY PRN HHN Dyspnea; Start 10/25/18 at 14:30 Bisacodyl (Dulcolax Supp) 10 mg DAILY PRN [place] CONSTIPATION; Start 10/25/18 at 15:30 Escitalopram Oxalate (Lexapro) 10 mg DAILY GTB Last administered on 11/03/18 10:17; Admin Dose 10 MG; Start 10/26/18 at 09:00 Folic Acid (Folic Acid) 1 mg DAILY GTB Last administered on 11/03/18 10:17; Admin Dose 1 MG; Start 10/26/18 at 09:00 Latanoprost (Xalatan) 1 drop QHS BOTH EYES Last administered on 11/02/18 21:38; Admin Dose 1 DROP; Start 10/25/18 at 21:00 Levothyroxine Sodium (Synthroid) 50 mcg BEFORE BREAKFAST GTB Last administered on 11/03/18 06:06; Admin Dose 50 MCG; Start 10/26/18 at 07:00 Magnesium Hydroxide (Milk Of Mag) 30 ml DAILY GTB Last administered on 11/03/18 10:16; Admin Dose 30 ML; Start 10/26/18 at 09:00 Sodium Biphosphate/ Sodium Phosphate (Fleet Enema) 133 ml DAILY PRN [place] CONSTIPATION; Start 10/25/18 at 15:30 Atropine Sulfate (Atropine (Syringe)) 0.5 mg PRN PRN IV heart rate less than 35 ; Start 10/25/18 at 22:00 Buspirone HCl (Buspar) 5 mg BID GTB Last administered on 11/03/18 10:16; Admin Dose 5 MG; Start 10/26/18 at 11:00 Enoxaparin Sodium (Lovenox) 30 mg DAILY SC Last administered on 11/03/18 10:24; Admin Dose 30 MG; Start 10/28/18 at 09:00 Meropenem/Sodium Chloride 50 ml @ 100 mls/hr Q12 IVPB Last administered on 11/03/18 10:18; Admin Dose 100 MLS/HR; Start 10/30/18 at 10:30 Metronidazole 100 ml @ 100 mls/hr Q8 IVPB Last administered on 11/03/18 13:23; Admin Dose 100 MLS/HR; Start 10/30/18 at 14:00 Lansoprazole (Prevacid) 15 mg DAILY@06 GTB Last administered on 11/03/18 06:06; Admin Dose 15 MG; Start 10/31/18 at 06:00 Furosemide (Lasix) 40 mg DAILY IV Last administered on 11/03/18 10:18; Admin Dose 40 MG; Start 10/31/18 at 09:00 Lactulose (Enulose) 30 gm TID GTB Last administered on 11/03/18 13:23; Admin Dose 30 GM; Start 11/01/18 at 09:00 Metoprolol Tartrate (Lopressor) 25 mg BID GTB Last administered on 11/03/18 10:18; Admin Dose 25 MG; Start 11/01/18 at 09:00 Amlodipine Besylate (Norvasc) 5 mg DAILY GTB Last administered on 11/03/18 10:17; Admin Dose 5 MG; Start 11/01/18 at 12:30 Acetaminophen/ Hydrocodone Bitart ([place] (5/325)) 1 tab Q4H PRN GTB MODERATE PAIN LEVEL 4-6 Last administered on 11/02/18 15:47; Admin Dose 1 TAB; Start 11/01/18 at 12:30 Doxazosin Mesylate (Cardura) 2 mg HS GTB ; Start 11/03/18 at 21:00 Assessment/Plan Assessment/Plan (Daily) IMP: 1. Sepsis secondary to possible aspiration pneumonia and urinary tract infection. 2. Advanced dementia. 3. Dysphagia 4. History of hypertension. 5. Lymphocytic predominant exudative right pleural effusion--complicated by small PTX RECS: 1. Am end-expiratory CXR--> No PTX 2. Follow-up pleural fluid cytology and ADA DARIELA ACOSTA MD Nov 03, 2018 16:11
[2018-11-03 20:19] VITALS: BP 145/54; PULSE 66; RESP 16
[2018-11-03] MEDS: DOXAZOSIN 2 MG TAB GTB SCH (20:52)
[2018-11-03] MEDS: LATANOPROST 0.005% 2.5 ML OPH BOTH EYES SCH (21:29)
[2018-11-04] VITALS (12 sets, daily range): BP systolic 115–151; BP diastolic 36–94; PULSE 55–89; RESP 15–22
[2018-11-04] MEDS: LANSOPRAZOLE 15 MG CAP GTB SCH (05:59)
[2018-11-04] MEDS: metroNIDAZOLE 500 MG/NS (PMX) 100 ML IVPB SCH ×3 (05:59→22:26)
[2018-11-04] MEDS: LEVOTHYROXINE 50 MCG TAB GTB SCH (06:28)
[2018-11-04] MEDS: ALBUTEROL/IPRATROPIUM (NEB) 3 ML AMP HHN SCH ×3 (08:14→23:06)
[2018-11-04] MEDS: LACTULOSE 30ML CUP GTB SCH ×3 (08:52→22:17)
[2018-11-04] MEDS: ESCITALOPRAM 10 MG TAB GTB SCH (08:54)
[2018-11-04] MEDS: FOLIC ACID 1 MG TAB GTB SCH (08:54)
[2018-11-04] MEDS: AMLODIPINE 5 MG TAB GTB SCH (08:54)
[2018-11-04] MEDS: BUSPIRONE 5 MG TAB GTB SCH ×2 (08:54→22:13)
[2018-11-04] MEDS: MEROPENEM 1 GM/50ML(PMX) 50 ML IVPB SCH ×2 (08:55→22:17)
[2018-11-04] MEDS: METOPROLOL 25 MG TAB GTB SCH ×2 (08:55→22:17)
[2018-11-04] MEDS: FUROSEMIDE 20 MG INJ IV SCH (08:55)
[2018-11-04] MEDS: MAGNESIUM HYDROXIDE 30ML CUP GTB SCH (09:00)
[2018-11-04] MEDS: ENOXAPARIN 30 MG/0.3 ML SYG SC SCH (09:01)
--- NOTE | 2018-11-04 09:59 | PN ---
Date/Time of Note Date/Time of Note DATE: 11/04/18 TIME: 09:52 Assessment/Plan VTE Prophylaxis Risk score (from Ns)>0 risk: 6 SCD applied (from Nsg): Yes Pharmacological prophylaxis: LMWH Lines/Catheters IV Catheter Type [facility]from [facility] [place] Urinary Cath still in place: Yes Reason Cath still needed: other (indicate) Assessment/Plan Hospital Course SUBJECTIVE: Patient is very lethargic. OBJECTIVE: Vital signs-see below PHYSICAL EXAM: Constitutional: Elderly/somnolent female, not in acute distress. HEENT: Head atraumatic and normocephalic. Eyes: Extraocular muscles intact. Anicteric sclerae. Pupils equal bilaterally, reactive to light. NECK: Supple without lymph node. CHEST: Clear and good breath sounds equally. No wheezing. No rhonchi. HEART: S1, S2. Regular rate and rhythm. ABDOMEN: Soft with no rebound tenderness. Bowel sounds were present. EXTREMITIES: Full range of motion in all the extremities. No cyanosis, clubbing or edema. NEUROLOGIC: Demented/somnolent. No focal deficit. No sensory deficit. PSYCHOSOCIAL: In a good mood. No signs of depression. INTEGUMENTARY: Moist mucous membranes. Good skin turgor, intact. ASSESSMENT AND PLAN:88 year old female with past medical history of hypertension, hyperlipidemia, hypothyroidism, dementia, dysphagia status post G- tube placement, and carotid artery disease transferred from the SNF w/resp distress found to have sepsis/uti/ pna/CHF exacerbation.. Acute hypernatremia w/around 6L free water deficit -Patient was started on tube feeding, with minimal water flush. At this time, after consulting with thread cutter tender, we decided to increase water flush to 150 mL every 6 hours, decreasing tube feeding rate to 30 mL's per hour with addition of D5W 75 ml per hour. -Counseled patient to telemetry monitored bed with frequent neurovascular checks, repeat sodium levels. -We will avoid overcorrection. Mild acute kidney injury, likely hemodynamic/dehydration -We will treat with gentle IV fluids. -Follow-up nephrology recommendations. Acute diastolic CHF with acute hypoxic respiratory failure: -Now stable. At this time, recommend stopping Lasix until sodium is corrected. -Continue beta-blockers. s/p Sepsis: source:uti/aspiration pna -On appropriate antimicrobials which she is finishing up soon. Right pleural effusion -Status post thoracentesis. Follow-up fluid studies. -Stable clinical exam Multidrug-resistant E. coli/ESBL UTI -On appropriate agent s/p Hypoxemic respiratory failure secondary to sepsis/CHF -Stable. Hypertension. -Continue the patient on appropriate antihypertensives. Hypothyroidism. -Continue Synthroid. Dysphagia, w/GT feeding -Status post replacement G-tube, continue tube feeding which is modified for hypernatremia correction. Chronic anemia -Stable H&H Prophylaxis: Lovenox/Prevacid Disposition: Hold DC plan for now. Patient needs further sodium monitoring and needs to be upgraded to telemetry monitored bed until sodium is corrected. Patient was seen in collaboration with Dr. Smith Result Diagram: 11/04/187 11/04/18 0437 Results 24hrs Laboratory Tests Test 11/04/18 04:37 White Blood Count 3.3 #L Red Blood Count 2.91 L Hemoglobin 9.2 L Hematocrit 31.9 L Mean Corpuscular Volume 109.6 H Mean Corpuscular Hemoglobin 31.6 Mean Corpuscular Hemoglobin Concent 28.8 L Red Cell Distribution Width 17.4 H Platelet Count 76 #L Mean Platelet Volume 10.4 Immature Granulocytes % 0.900 H Neutrophils % 51.0 Lymphocytes % 30.5 Monocytes % 9.1 Eosinophils % 8.2 H Basophils % 0.3 Nucleated Red Blood Cells % 0.0 Immature Granulocytes # 0.030 Neutrophils # 1.7 Lymphocytes # 1.0 Monocytes # 0.3 Eosinophils # 0.3 Basophils # 0.0 Nucleated Red Blood Cells # 0.0 Sodium Level 166 *H Potassium Level 3.4 L Chloride Level 128 H Carbon Dioxide Level 39 H Anion Gap -1 L Blood Urea Nitrogen 54 H Creatinine 1.16 H Est Glomerular Filtrat Rate mL/min Glucose Level 167 Calcium Level 9.6 Magnesium Level 3.4 H Total Bilirubin 0.2 Direct Bilirubin 0.00 Indirect Bilirubin 0.2 Aspartate Amino Transf (AST/SGOT) 47 H Alanine Aminotransferase (ALT/SGPT) 20 Alkaline Phosphatase 184 H Total Protein 5.8 L Albumin 1.9 L Globulin 3.90 H Albumin/Globulin Ratio 0.48 Exam/Review of Systems Exam Vitals Vital Signs Date Temp Pulse Resp B/P (MAP) Pulse Ox O2 O2 Flow FiO2 Time Delivery Rate 11/04/18 1.0 08:15 11/04/18 63 18 98 Nasal 08:15 Cannula 11/04/18 98.4 151/62 07:32 (91) Intake and Output 11/03/18 11/03/18 11/04/18 1515:00 23:00 07:00 IntakeIntake Total 150 ml 880 ml 770 ml OutputOutput Total 850 ml 400 ml 200 ml BalanceBalance -700 ml 480 ml 570 ml Results Results 24hrs Laboratory Tests Test 11/04/18 04:37 White Blood Count 3.3 #L Red Blood Count 2.91 L Hemoglobin 9.2 L Hematocrit 31.9 L Mean Corpuscular Volume 109.6 H Mean Corpuscular Hemoglobin 31.6 Mean Corpuscular Hemoglobin Concent 28.8 L Red Cell Distribution Width 17.4 H Platelet Count 76 #L Mean Platelet Volume 10.4 Immature Granulocytes % 0.900 H Neutrophils % 51.0 Lymphocytes % 30.5 Monocytes % 9.1 Eosinophils % 8.2 H Basophils % 0.3 Nucleated Red Blood Cells % 0.0 Immature Granulocytes # 0.030 Neutrophils # 1.7 Lymphocytes # 1.0 Monocytes # 0.3 Eosinophils # 0.3 Basophils # 0.0 Nucleated Red Blood Cells # 0.0 Sodium Level 166 *H Potassium Level 3.4 L Chloride Level 128 H Carbon Dioxide Level 39 H Anion Gap -1 L Blood Urea Nitrogen 54 H Creatinine 1.16 H Est Glomerular Filtrat Rate mL/min Glucose Level 167 Calcium Level 9.6 Magnesium Level 3.4 H Total Bilirubin 0.2 Direct Bilirubin 0.00 Indirect Bilirubin 0.2 Aspartate Amino Transf (AST/SGOT) 47 H Alanine Aminotransferase (ALT/SGPT) 20 Alkaline Phosphatase 184 H Total Protein 5.8 L Albumin 1.9 L Globulin 3.90 H Albumin/Globulin Ratio 0.48 Medications Medication Current Medications IV Flush (NS 3 ml) 3 ml PER PROTOCOL IV ; Start 10/25/18 at 14:30 Ondansetron HCl (Zofran Inj) 4 mg Q6H PRN IV NAUSEA/VOMITING; Start 10/25/18 at 14:30 Albuterol/ Ipratropium (Duoneb) 3 ml Q6HWA RESP THERAPY HHN Last administered on 11/04/18at 08:14; Admin Dose 3 ML; Start 10/25/18 at 20:00 Albuterol/ Ipratropium (Duoneb) 3 ml Q2H RESP THERAPY PRN HHN Dyspnea; Start 10/25/18 at 14:30 Bisacodyl (Dulcolax Supp) 10 mg DAILY PRN [place] CONSTIPATION; Start 10/25/18 at 15:30 Escitalopram Oxalate (Lexapro) 10 mg DAILY GTB Last administered on 11/04/18 08:54; Admin Dose 10 MG; Start 10/26/18 at 09:00 Folic Acid (Folic Acid) 1 mg DAILY GTB Last administered on 11/04/18 08:54; Admin Dose 1 MG; Start 10/26/18 at 09:00 Latanoprost (Xalatan) 1 drop QHS BOTH EYES Last administered on 11/03/18 21:29; Admin Dose 1 DROP; Start 10/25/18 at 21:00 Levothyroxine Sodium (Synthroid) 50 mcg BEFORE BREAKFAST GTB Last administered on 11/04/18 06:28; Admin Dose 50 MCG; Start 10/26/18 at 07:00 Magnesium Hydroxide (Milk Of Mag) 30 ml DAILY GTB Last administered on 11/03/18 10:16; Admin Dose 30 ML; Start 10/26/18 at 09:00 Sodium Biphosphate/ Sodium Phosphate (Fleet Enema) 133 ml DAILY PRN [place] CONSTIPATION; Start 10/25/18 at 15:30 Atropine Sulfate (Atropine (Syringe)) 0.5 mg PRN PRN IV heart rate less than 35 ; Start 10/25/18 at 22:00 Buspirone HCl (Buspar) 5 mg BID GTB Last administered on 11/04/18 08:54; Admin Dose 5 MG; Start 10/26/18 at 11:00 Enoxaparin Sodium (Lovenox) 30 mg DAILY SC Last administered on 11/04/18 09:01; Admin Dose 30 MG; Start 10/28/18 at 09:00 Meropenem/Sodium Chloride 50 ml @ 100 mls/hr Q12 IVPB Last administered on 11/04/18 08:55; Admin Dose 100 MLS/HR; Start 10/30/18 at 10:30 Metronidazole 100 ml @ 100 mls/hr Q8 IVPB Last administered on 11/04/18 05:59; Admin Dose 100 MLS/HR; Start 10/30/18 at 14:00 Lansoprazole (Prevacid) 15 mg DAILY@06 GTB Last administered on 11/04/18 05:59; Admin Dose 15 MG; Start 10/31/18 at 06:00 Furosemide (Lasix) 40 mg DAILY IV Last administered on 11/04/18 08:55; Admin Dose 40 MG; Start 10/31/18 at 09:00 Lactulose (Enulose) 30 gm TID GTB Last administered on 11/04/18 08:52; Admin Dose 30 GM; Start 11/01/18 at 09:00 Metoprolol Tartrate (Lopressor) 25 mg BID GTB Last administered on 11/04/18 08:55; Admin Dose 25 MG; Start 11/01/18 at 09:00 Amlodipine Besylate (Norvasc) 5 mg DAILY GTB Last administered on 11/04/18 08:54; Admin Dose 5 MG; Start 11/01/18 at 12:30 Acetaminophen/ Hydrocodone Bitart ([place] (5/325)) 1 tab Q4H PRN GTB MODERATE PAIN LEVEL 4-6 Last administered on 11/02/18at 15:47; Admin Dose 1 TAB; Start 11/01/18 at 12:30 Doxazosin Mesylate (Cardura) 2 mg HS GTB Last administered on 11/03/18at 20:52; Admin Dose 2 MG; Start 11/03/18 at 21:00 JOAN MURPHY NP Nov 04, 2018 09:59
[2018-11-04] MEDS: DEXTROSE 5% 1,000 ML IV SCH (10:05)
[2018-11-04] MEDS ORDERED: POTASSIUM CHLORIDE 20 MEQ POWDER FOR ORAL SOLN GTB ONE (11:00)
--- NOTE | 2018-11-04 11:10 | CONS ---
DATE OF ADMISSION: 10/25/2018 DATE OF CONSULTATION: REASON FOR CONSULTATION: Hypernatremia, renal failure. HISTORY OF PRESENT ILLNESS: This 88-year-old female is being seen because of rising serum sodium. H er serum sodium today is 166 with a chloride of 128. The patient is demented and nonverbal. The his tory was taken from the chart and previous notes. The patient apparently was admitted on 10/25/2018. 1. Sepsis and tachycardia. The patient had fever and lactic acidosis. Since that time, the patient has been treated with antibiotics. She was thought to have urinary tract infection and aspiration p neumonia. She does have dysphagia and is on tube feedings. She was on tube feeding 50 mL an hour. Over the last 5 days, her serum sodium has risen. Her serum creatinine and BUN are also elevated. H er urine output has been nonoliguric. She was on diuretics, which were discontinued today. PAST MEDICAL HISTORY: Remarkable for sepsis, acute hypoxic respiratory failure, hypertension, hypoth yroidism, dysphagia, hyperlipidemia, anemia, dementia, G-tube placement. The patient was in a [facility] facility before she was transferred here. PAST SURGICAL HISTORY: Cholecystectomy, hernia repair, laser surgery. CURRENT MEDICATIONS: 1. Doxazosin 2 mg at bedtime. 2. Amlodipine 5 mg a day. 3. [place]. 4. Lactulose. 5. Metoprolol 25 mg twice a day. 6. Prevacid 15 mg a day. 7. Metronidazole q.8h. 8. Meropenem q.12h. 9. Lovenox 30 mg subq daily. 10. BuSpar are 5 mg twice a day. 11. Lexapro 10 mg a day. 12. Folic acid 1 mg a day. 13. Milk of magnesia p.r.n. 14. Levothyroxine 50 mcg a day. 15. Latanoprost eye drops. 16. DuoNeb breathing treatments. 17. Fleets enema. 18. Zofran. 19. DuoNeb. PHYSICAL EXAMINATION: GENERAL: At this time reveals an ill-appearing, unresponsive female. VITAL SIGNS: Temperature 98.4, pulse is 60, respirations 16, blood pressure 151/62. O2 sat of 98% o n 1 liter nasal cannula. HEENT: Head normocephalic, no signs of trauma. The eyes are closed. Nose is normal. Mouth is open . NECK: No neck vein distention. LUNGS: Diminished breath sounds bilaterally with poor inspiratory effort. HEART: Regular rhythm. No murmurs, gallops or rubs. ABDOMEN: With a binder. She does have a G-tube in place. Soft, nontender, no flank edema. LOWER EXTREMITIES: No edema. LABORATORY DATA: Done today, sodium 166, potassium 3.4, chloride 128, CO2 39, BUN 54, creatinine 1.1 6, glucose 167, alkaline phosphatase of 184, white blood count of 3300, hemoglobin 9.2, hematocrit 31 .9, platelet count is decreased at 76. IMPRESSION: 1. Hypernatremia. This patient is hypernatremic due to dehydration. She also has mild renal failur e. She was receiving diuretics until today, which were discontinued. She has had some mild fluid in her lungs and did have a thoracentesis; fluid removed is about 800 mL of fluid was removed on 2018. 2. Dementia. 3. Mild acute on chronic renal failure. 4. History of anemia. PLAN: 1. Recommend the patient get supplemental water including water flushes in the G-tube and start D5W as continuous IV fluid drip. 2. Would recommend renal and abdominal ultrasound. 3. Monitor daily labs. 4. I will follow the patient along with you. Dictated By: NATASHA MOSLEY MD, ND/DONNA Conf#: [id number] DID#: [id number] CC: KINDRA GALICIA MD;*EndCC*
--- NOTE | 2018-11-04 11:37 | CONS ---
Consult Date/Type/Reason Admit Date/Time Oct 25, 2018 at 11:10 Initial Consult Date 10/27/18 Type of Consult Pulmonary Requesting Provider: ADRIANE MAHMOOD NP Date/Time of Note DATE: 11/04/18 TIME: 11:36 Subjective Patient appears comfortable this morning. No respiratory distress. Sodium remains elevated. Objective Vital Signs Date Temp Pulse Resp B/P (MAP) Pulse Ox O2 O2 Flow FiO2 Time Delivery Rate 11/04/18 60 11:00 11/04/18 98.0 20 126/59 93 Room Air 10:05 (81) 11/04/18 1.0 08:15 Intake and Output 11/03/18 11/03/18 11/04/18 1515:00 23:00 07:00 IntakeIntake Total 150 ml 880 ml 770 ml OutputOutput Total 850 ml 400 ml 200 ml BalanceBalance -700 ml 480 ml 570 ml Exam GENERAL: Frail elderly lady comfortable at rest no acute distress VITAL SIGNS: per chart NECK: Supple. No JVD or lymphadenopathy. CARDIAC EXAM: S1, S2. No added sounds or murmurs. CHEST: Diminished air entry bilaterally ABDOMEN: Soft, nontender. No guarding or rebound. EXTREMITIES: No cyanosis, clubbing or edema. NEUROLOGIC: Generalized weakness. No focal deficits. Vent Setting Fraction of Inspired Oxygen pe: 21 Results/Medications Result Diagram: 11/04/187 11/04/18 0437 Results 24 hrs Laboratory Tests Test 11/04/18 04:37 White Blood Count 3.3 #L Red Blood Count 2.91 L Hemoglobin 9.2 L Hematocrit 31.9 L Mean Corpuscular Volume 109.6 H Mean Corpuscular Hemoglobin 31.6 Mean Corpuscular Hemoglobin Concent 28.8 L Red Cell Distribution Width 17.4 H Platelet Count 76 #L Mean Platelet Volume 10.4 Immature Granulocytes % 0.900 H Neutrophils % 51.0 Lymphocytes % 30.5 Monocytes % 9.1 Eosinophils % 8.2 H Basophils % 0.3 Nucleated Red Blood Cells % 0.0 Immature Granulocytes # 0.030 Neutrophils # 1.7 Lymphocytes # 1.0 Monocytes # 0.3 Eosinophils # 0.3 Basophils # 0.0 Nucleated Red Blood Cells # 0.0 Sodium Level 166 *H Potassium Level 3.4 L Chloride Level 128 H Carbon Dioxide Level 39 H Anion Gap -1 L Blood Urea Nitrogen 54 H Creatinine 1.16 H Est Glomerular Filtrat Rate mL/min Glucose Level 167 Calcium Level 9.6 Magnesium Level 3.4 H Total Bilirubin 0.2 Direct Bilirubin 0.00 Indirect Bilirubin 0.2 Aspartate Amino Transf (AST/SGOT) 47 H Alanine Aminotransferase (ALT/SGPT) 20 Alkaline Phosphatase 184 H Total Protein 5.8 L Albumin 1.9 L Globulin 3.90 H Albumin/Globulin Ratio 0.48 Medications Current Medications IV Flush (NS 3 ml) 3 ml PER PROTOCOL IV ; Start 10/25/18 at 14:30 Ondansetron HCl (Zofran Inj) 4 mg Q6H PRN IV NAUSEA/VOMITING; Start 10/25/18 at 14:30 Albuterol/ Ipratropium (Duoneb) 3 ml Q6HWA RESP THERAPY HHN Last administered on 11/04/18 08:14; Admin Dose 3 ML; Start 10/25/18 at 20:00 Albuterol/ Ipratropium (Duoneb) 3 ml Q2H RESP THERAPY PRN HHN Dyspnea; Start 10/25/18 at 14:30 Bisacodyl (Dulcolax Supp) 10 mg DAILY PRN [place] CONSTIPATION; Start 10/25/18 at 15:30 Escitalopram Oxalate (Lexapro) 10 mg DAILY GTB Last administered on 11/04/18 08:54; Admin Dose 10 MG; Start 10/26/18 at 09:00 Folic Acid (Folic Acid) 1 mg DAILY GTB Last administered on 11/04/18 08:54; Admin Dose 1 MG; Start 10/26/18 at 09:00 Latanoprost (Xalatan) 1 drop QHS BOTH EYES Last administered on 11/03/18 21:29; Admin Dose 1 DROP; Start 10/25/18 at 21:00 Levothyroxine Sodium (Synthroid) 50 mcg BEFORE BREAKFAST GTB Last administered on 11/04/18 06:28; Admin Dose 50 MCG; Start 10/26/18 at 07:00 Magnesium Hydroxide (Milk Of Mag) 30 ml DAILY GTB Last administered on 11/03/18 10:16; Admin Dose 30 ML; Start 10/26/18 at 09:00 Sodium Biphosphate/ Sodium Phosphate (Fleet Enema) 133 ml DAILY PRN [place] CONSTIPATION; Start 10/25/18 at 15:30 Atropine Sulfate (Atropine (Syringe)) 0.5 mg PRN PRN IV heart rate less than 35 ; Start 10/25/18 at 22:00 Buspirone HCl (Buspar) 5 mg BID GTB Last administered on 11/04/18 08:54; Admin Dose 5 MG; Start 10/26/18 at 11:00 Enoxaparin Sodium (Lovenox) 30 mg DAILY SC Last administered on 11/04/18 09:01 ; Admin Dose 30 MG; Start 10/28/18 at 09:00 Meropenem/Sodium Chloride 50 ml @ 100 mls/hr Q12 IVPB Last administered on 11/04/18 08:55; Admin Dose 100 MLS/HR; Start 10/30/18 at 10:30 Metronidazole 100 ml @ 100 mls/hr Q8 IVPB Last administered on 11/04/18 05:59; Admin Dose 100 MLS/HR; Start 10/30/18 at 14:00 Lansoprazole (Prevacid) 15 mg DAILY@06 GTB Last administered on 11/04/18 05:59; Admin Dose 15 MG; Start 10/31/18 at 06:00 Lactulose (Enulose) 30 gm TID GTB Last administered on 11/04/18 08:52; Admin Dose 30 GM; Start 11/01/18 at 09:00 Metoprolol Tartrate (Lopressor) 25 mg BID GTB Last administered on 11/04/18 08:55; Admin Dose 25 MG; Start 11/01/18 at 09:00 Amlodipine Besylate (Norvasc) 5 mg DAILY GTB Last administered on 11/04/18 08:54; Admin Dose 5 MG; Start 11/01/18 at 12:30 Acetaminophen/ Hydrocodone Bitart ([place] (5/325)) 1 tab Q4H PRN GTB MODERATE PAIN LEVEL 4-6 Last administered on 11/02/18 15:47; Admin Dose 1 TAB; Start 11/01/18 at 12:30 Doxazosin Mesylate (Cardura) 2 mg HS GTB Last administered on 11/03/18 20:52; Admin Dose 2 MG; Start 11/03/18 at 21:00 Dextrose 1,000 ml @ 75 mls/hr [id number] IV Last administered on 4/29/19at 10:05; Admin Dose 75 MLS/HR; Start 11/04/18 at 10:00 Assessment/Plan Hospital Course (Demo Recall) IMP: 1. Sepsis secondary to possible aspiration pneumonia and urinary tract infection. 2. Advanced dementia. 3. Dysphagia 4. History of hypertension. 5. Lymphocytic predominant exudative right pleural effusion--complicated by small PTX 6. Hypernatremia RECS: 1. Am end-expiratory CXR--> No PTX 2. Follow-up pleural fluid cytology and ADA 3. Correction of elevated sodium per nephrology. Barger evaluation. DIGNA ALANIS MD, [facility] Nov 04, 2018 11:37
[2018-11-04] MEDS: DOXAZOSIN 2 MG TAB GTB SCH (22:16)
[2018-11-05] VITALS (12 sets, daily range): BP systolic 119–137; BP diastolic 55–64; PULSE 44–56; RESP 16–56
[2018-11-05] MEDS: LATANOPROST 0.005% 2.5 ML OPH BOTH EYES SCH ×2 (00:23→21:41)
[2018-11-05] MEDS: DEXTROSE 5% 1,000 ML IV SCH ×2 (00:27→12:40)
[2018-11-05] MEDS: metroNIDAZOLE 500 MG/NS (PMX) 100 ML IVPB SCH ×2 (05:54→16:48)
[2018-11-05] MEDS: LANSOPRAZOLE 15 MG CAP GTB SCH (05:54)
[2018-11-05] MEDS: LEVOTHYROXINE 50 MCG TAB GTB SCH (06:09)
[2018-11-05] MEDS: ALBUTEROL/IPRATROPIUM (NEB) 3 ML AMP HHN SCH ×2 (08:36→13:20)
[2018-11-05] MEDS: LACTULOSE 30ML CUP GTB SCH ×3 (08:55→21:25)
[2018-11-05] MEDS: ESCITALOPRAM 10 MG TAB GTB SCH (08:55)
[2018-11-05] MEDS: BUSPIRONE 5 MG TAB GTB SCH ×2 (08:55→21:27)
[2018-11-05] MEDS: MEROPENEM 1 GM/50ML(PMX) 50 ML IVPB SCH ×2 (08:55→21:25)
[2018-11-05] MEDS: MAGNESIUM HYDROXIDE 30ML CUP GTB SCH (08:55)
[2018-11-05] MEDS: METOPROLOL 25 MG TAB GTB SCH (08:56)
[2018-11-05] MEDS: AMLODIPINE 5 MG TAB GTB SCH (08:56)
[2018-11-05] MEDS: FOLIC ACID 1 MG TAB GTB SCH (08:56)
[2018-11-05] MEDS: ENOXAPARIN 30 MG/0.3 ML SYG SC SCH (09:05)
--- NOTE | 2018-11-05 10:37 | PN ---
Date/Time of Note Date/Time of Note DATE: 11/05/18 TIME: 10:29 Assessment/Plan VTE Prophylaxis Risk score (from Ns)>0 risk: 9 SCD applied (from Ns): Yes Pharmacological prophylaxis: LMWH Lines/Catheters IV Catheter Type (from [facility]): Peripheral IV Urinary Cath still in place: Yes Reason Cath still needed: other (indicate) Assessment/Plan Hospital Course SUBJECTIVE: Patient is very lethargic...HR down to low 40's overnight... OBJECTIVE: Vital signs-see below PHYSICAL EXAM: Constitutional: Elderly/somnolent female, not in acute distress. HEENT: Head atraumatic and normocephalic. Eyes: Extraocular muscles intact. Anicteric sclerae. Pupils equal bilaterally, reactive to light. NECK: Supple without lymph node. CHEST: Clear and good breath sounds equally. No wheezing. No rhonchi. HEART: S1, S2. Regular rate and rhythm. ABDOMEN: Soft with no rebound tenderness. Bowel sounds were present. EXTREMITIES: Generalized weakness in all the extremities.No focal deficit. No cyanosis, clubbing or edema. NEUROLOGIC: Demented/somnolent. No focal deficit. No sensory deficit. PSYCHOSOCIAL: In a good mood. No signs of depression. INTEGUMENTARY: Moist mucous membranes. Good skin turgor, intact. ASSESSMENT AND PLAN:88 year old female with past medical history of hypertension, hyperlipidemia, hypothyroidism, dementia, dysphagia status post G- tube placement, and carotid artery disease transferred [facility] the [facility] w/resp distress found to have sepsis/uti/ pna/CHF exacerbation.. Acute hypernatremia w/around 6L free water deficit -Gradually improving. Will avid overcorrection...Mgmt per nephro -on h20 flush via Gt,D5W -Continue holding Lasix for now -NV checks Mild acute kidney injury, likely hemodynamic/dehydration -Creatinine trended up slightly today. Management per nephrology. -Continue gentle fluids. Acute diastolic CHF with acute hypoxic respiratory failure: -Clinically compensated -Continue beta-blockers. s/p Sepsis: source:uti/aspiration pna -On appropriate antimicrobials which she is finishing up soon. Right pleural effusion -Status post thoracentesis. Follow-up fluid studies. -Stable clinical exam Multidrug-resistant E. coli/ESBL UTI -On appropriate agent -Repeat urine culture s/p Hypoxemic respiratory failure secondary to sepsis/CHF -Stable. Hypertension. -Continue the patient on appropriate antihypertensives. Hypothyroidism. -Continue Synthroid. Dysphagia, w/GT feeding -Status post replacement G-tube, continue tube feeding which is modified for hypernatremia correction. Chronic anemia -Stable H&H Electrolyte derangement/hypophosphatemia -mgmt per nephro Sinus bradycardia -Decrease metoprolol to daily with hold parameters. Obtain twelve-lead EKG -Cardiology consult -tele Thrombocytopenia -stable -monitor Prophylaxis: Lovenox/Prevacid Disposition: Hold DC plan for now. Patient needs further electrolyte mo nitoring.. Patient was seen in collaboration with Dr. Smith Result Diagram: 11/05/18 0421 11/05/18 0808 Results 24hrs Laboratory Tests Test 11/04/18 10:42 11/04/18 16:37 11/04/18 21:07 11/05/18 00:29 Sodium Level 163 *H 159 H 160 H 158 H Phosphorus Level 1.2 L Ammonia 21 Test 11/05/18 04:21 11/05/18 08:08 White Blood Count 2.9 L Red Blood Count 2.59 L Hemoglobin 8.4 L Hematocrit 28.4 L Mean Corpuscular 109.7 H Volume Mean Corpuscular 32.4 Hemoglobin Mean Corpuscular 29.6 L Hemoglobin Concent Red Cell 17.1 H Distribution Width Platelet Count 65 L Mean Platelet Volume 10.9 H Immature 1.000 H Granulocytes % Neutrophils % 47.5 Lymphocytes % 31.1 Monocytes % 9.7 Eosinophils % 9.7 H Basophils % 1.0 Nucleated Red Blood 0.0 Cells % Immature 0.030 Granulocytes # Neutrophils # 1.4 L Lymphocytes # 0.9 Monocytes # 0.3 Eosinophils # 0.3 Basophils # 0.0 Nucleated Red Blood 0.0 Cells # Sodium Level 159 H 159 H Potassium Level 3.6 Chloride Level 125 H Carbon Dioxide Level 38 H Anion Gap -4 L Blood Urea Nitrogen 54 H Creatinine 1.24 H Est Glomerular Filtrat Rate mL/min Glucose Level 132 Calcium Level 9.2 Magnesium Level 3.2 H Exam/Review of Systems Exam Vitals Vital Signs Date Temp Pulse Resp B/P (MAP) Pulse Ox O2 O2 Flow FiO2 Time Delivery Rate 11/05/18 49 18 98 Nasal 2.0 08:37 Cannula 11/05/18 98.0 137/63 07:25 (87) Intake and Output 11/04/18 11/04/18 11/05/18 1515:00 23:00 07:00 IntakeIntake Total 1025 ml 1070 ml OutputOutput Total 300 ml 200 ml 850 ml BalanceBalance 725 ml -200 ml 220 ml Results Results 24hrs Laboratory Tests Test 11/04/18 10:42 11/04/18 16:37 11/04/18 21:07 11/05/18 00:29 Sodium Level 163 *H 159 H 160 H 158 H Phosphorus Level 1.2 L Ammonia 21 Test 11/05/18 04:21 11/05/18 08:08 White Blood Count 2.9 L Red Blood Count 2.59 L Hemoglobin 8.4 L Hematocrit 28.4 L Mean Corpuscular 109.7 H Volume Mean Corpuscular 32.4 Hemoglobin Mean Corpuscular 29.6 L Hemoglobin Concent Red Cell 17.1 H Distribution Width Platelet Count 65 L Mean Platelet Volume 10.9 H Immature 1.000 H Granulocytes % Neutrophils % 47.5 Lymphocytes % 31.1 Monocytes % 9.7 Eosinophils % 9.7 H Basophils % 1.0 Nucleated Red Blood 0.0 Cells % Immature 0.030 Granulocytes # Neutrophils # 1.4 L Lymphocytes # 0.9 Monocytes # 0.3 Eosinophils # 0.3 Basophils # 0.0 Nucleated Red Blood 0.0 Cells # Sodium Level 159 H 159 H Potassium Level 3.6 Chloride Level 125 H Carbon Dioxide Level 38 H Anion Gap -4 L Blood Urea Nitrogen 54 H Creatinine 1.24 H Est Glomerular Filtrat Rate mL/min Glucose Level 132 Calcium Level 9.2 Magnesium Level 3.2 H Medications Medication Current Medications IV Flush (NS 3 ml) 3 ml PER PROTOCOL IV ; Start 10/25/18 at 14:30 Ondansetron HCl (Zofran Inj) 4 mg Q6H PRN IV NAUSEA/VOMITING; Start 10/25/18 at 14:30 Albuterol/ Ipratropium (Duoneb) 3 ml Q6HWA RESP THERAPY HHN Last administered on 11/05/18at 08:36; Admin Dose 3 ML; Start 10/25/18 at 20:00 Albuterol/ Ipratropium (Duoneb) 3 ml Q2H RESP THERAPY PRN HHN Dyspnea; Start 10/25/18 at 14:30 Bisacodyl (Dulcolax Supp) 10 mg DAILY PRN [place] CONSTIPATION; Start 10/25/18 at 15:30 Escitalopram Oxalate (Lexapro) 10 mg DAILY GTB Last administered on 11/05/18 08:55; Admin Dose 10 MG; Start 10/26/18 at 09:00 Folic Acid (Folic Acid) 1 mg DAILY GTB Last administered on 11/05/18 08:56; Admin Dose 1 MG; Start 10/26/18 at 09:00 Latanoprost (Xalatan) 1 drop QHS BOTH EYES Last administered on 11/05/18 00:23; Admin Dose 1 DROP; Start 10/25/18 at 21:00 Levothyroxine Sodium (Synthroid) 50 mcg BEFORE BREAKFAST GTB Last administered on 11/05/18 06:09; Admin Dose 50 MCG; Start 10/26/18 at 07:00 Magnesium Hydroxide (Milk Of Mag) 30 ml DAILY GTB Last administered on 11/05/18 08:55; Admin Dose 30 ML; Start 10/26/18 at 09:00 Sodium Biphosphate/ Sodium Phosphate (Fleet Enema) 133 ml DAILY PRN [place] CONSTIPATION; Start 10/25/18 at 15:30 Atropine Sulfate (Atropine (Syringe)) 0.5 mg PRN PRN IV heart rate less than 35 ; Start 10/25/18 at 22:00 Buspirone HCl (Buspar) 5 mg BID GTB Last administered on 11/05/18 08:55; Admin Dose 5 MG; Start 10/26/18 at 11:00 Enoxaparin Sodium (Lovenox) 30 mg DAILY SC Last administered on 11/05/18 09:05; Admin Dose 30 MG; Start 10/28/18 at 09:00 Meropenem/Sodium Chloride 50 ml @ 100 mls/hr Q12 IVPB Last administered on 11/05/18 08:55; Admin Dose 100 MLS/HR; Start 10/30/18 at 10:30 Metronidazole 100 ml @ 100 mls/hr Q8 IVPB Last administered on 11/05/18 05:54; Admin Dose 100 MLS/HR; Start 10/30/18 at 14:00 Lansoprazole (Prevacid) 15 mg DAILY@06 GTB Last administered on 4/30/19at 05:54; Admin Dose 15 MG; Start 10/31/18 at 06:00 Lactulose (Enulose) 30 gm TID GTB Last administered on 11/05/18 08:55; Admin Dose 30 GM; Start 11/01/18 at 09:00 Metoprolol Tartrate (Lopressor) 25 mg BID GTB Last administered on 11/05/18 08:56; Admin Dose 25 MG; Start 11/01/18 at 09:00 Amlodipine Besylate (Norvasc) 5 mg DAILY GTB Last administered on 11/05/18 08:56; Admin Dose 5 MG; Start 11/01/18 at 12:30 Acetaminophen/ Hydrocodone Bitart ([place] (5/325)) 1 tab Q4H PRN GTB MODERATE PAIN LEVEL 4-6 Last administered on 11/02/18at 15:47; Admin Dose 1 TAB; Start 11/01/18 at 12:30 Doxazosin Mesylate (Cardura) 2 mg HS GTB Last administered on 11/04/18at 22:16; Admin Dose 2 MG; Start 11/03/18 at 21:00 Dextrose 1,000 ml @ 75 mls/hr [id number] IV Last administered on 11/05/18 00:27; Admin Dose 75 MLS/HR; Start 11/04/18 at 10:00 JOAN MURPHY NP Nov 05, 2018 10:37
--- NOTE | 2018-11-05 11:12 | CONS ---
Assessment/Plan Assessment/Plan Assessment/Plan (Daily) Chest x-ray was reviewed from yesterday which is showing right pleural effusion with possibly right lower lobe infiltrative changes. Assessment and recommendations; 1. Patient admitted with pneumonia and UTI currently on appropriate antimicrobial regimen. 2. Status post right thoracentesis, pleural effusion is transudative. Indicative of underlying CHF. 3. Dementia. 4. Severe hypernatremia with very minimal interval improvement. 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 5. History of chronic renal insufficiency. 6. Anemia and severe thrombocytopenia. 7. History of hypothyroidism. 8. History of systemic hypertension. Continue current supportive care. Add desmopressin 2 mics subcutaneously every 12 hours at least for 4 doses. Monitor serum sodium level. Consultation Date/Type/Reason Admit Date/Time Oct 25, 2018 at 11:10 Initial Consult Date 10/27/18 Type of Consult Pulmonary Patient condition is stable. General exam; elderly woman, currently in no distress. Reason for Consultation H EENT exam; supple neck, positive JVD. No lymphadenopathy. Midline trachea. No thyromegaly. No neck masses. Chest exam; diminished breath sounds lung bases. Upper lobes are fairly clear. S1-S2 audible, no murmurs. Regular rhythm. Abdomen exam; soft, no organomegaly. Bowel sounds audible. Extremity exam; no peripheral edema. [employer] exam; patient exhibiting generalized weakness. Requesting Provider: ADRIANE MAHMOOD NP Date/Time of Note DATE: 11/05/18 TIME: 11:10 Exam/Review of Systems Exam Vitals Vital Signs Date Temp Pulse Resp B/P (MAP) Pulse Ox O2 O2 Flow FiO2 Time Delivery Rate 11/05/18 49 18 98 Nasal 2.0 08:37 Cannula 11/05/18 98.0 137/63 07:25 (87) Intake and Output 11/04/18 11/04/18 11/05/18 1414:59 22:59 06:59 IntakeIntake Total 1125 ml 1070 ml OutputOutput Total 300 ml 200 ml 850 ml BalanceBalance 825 ml -200 ml 220 ml Results Result Diagram: 11/05/18 0421 11/05/18 0808 Results 24hrs Laboratory Tests Test 11/04/18 16:37 11/04/18 21:07 11/05/18 00:29 11/05/18 04:21 Sodium Level 159 H 160 H 158 H 159 H White Blood Count 2.9 L Red Blood Count 2.59 L Hemoglobin 8.4 L Hematocrit 28.4 L Mean Corpuscular 109.7 H Volume Mean Corpuscular 32.4 Hemoglobin Mean Corpuscular 29.6 L Hemoglobin Concent Red Cell 17.1 H Distribution Width Platelet Count 65 L Mean Platelet Volume 10.9 H Immature 1.000 H Granulocytes % Neutrophils % 47.5 Lymphocytes % 31.1 Monocytes % 9.7 Eosinophils % 9.7 H Basophils % 1.0 Nucleated Red Blood 0.0 Cells % Immature 0.030 Granulocytes # Neutrophils # 1.4 L Lymphocytes # 0.9 Monocytes # 0.3 Eosinophils # 0.3 Basophils # 0.0 Nucleated Red Blood 0.0 Cells # Potassium Level 3.6 Chloride Level 125 H Carbon Dioxide Level 38 H Anion Gap -4 L Blood Urea Nitrogen 54 H Creatinine 1.24 H Est Glomerular Filtrat Rate mL/min Glucose Level 132 Calcium Level 9.2 Magnesium Level 3.2 H Test 11/05/18 08:04 11/05/18 08:08 Phosphorus Level 2.1 L Sodium Level 159 H Medications Medication Current Medications IV Flush (NS 3 ml) 3 ml PER PROTOCOL IV ; Start 10/25/18 at 14:30 Ondansetron HCl (Zofran Inj) 4 mg Q6H PRN IV NAUSEA/VOMITING; Start 10/25/18 at 14:30 Albuterol/ Ipratropium (Duoneb) 3 ml Q6HWA RESP THERAPY HHN Last administered on 11/05/18at 08:36; Admin Dose 3 ML; Start 10/25/18 at 20:00 Albuterol/ Ipratropium (Duoneb) 3 ml Q2H RESP THERAPY PRN HHN Dyspnea; Start 10/25/18 at 14:30 Bisacodyl (Dulcolax Supp) 10 mg DAILY PRN [place] CONSTIPATION; Start 10/25/18 at 15:30 Escitalopram Oxalate (Lexapro) 10 mg DAILY GTB Last administered on 11/05/18at 08:55; Admin Dose 10 MG; Start 10/26/18 at 09:00 Folic Acid (Folic Acid) 1 mg DAILY GTB Last administered on 11/05/18at 08:56; Admin Dose 1 MG; Start 10/26/18 at 09:00 Latanoprost (Xalatan) 1 drop QHS BOTH EYES Last administered on 11/05/18 00:23; Admin Dose 1 DROP; Start 10/25/18 at 21:00 Levothyroxine Sodium (Synthroid) 50 mcg BEFORE BREAKFAST GTB Last administered on 11/05/18 06:09; Admin Dose 50 MCG; Start 10/26/18 at 07:00 Magnesium Hydroxide (Milk Of Mag) 30 ml DAILY GTB Last administered on 11/05/18 08:55; Admin Dose 30 ML; Start 10/26/18 at 09:00 Sodium Biphosphate/ Sodium Phosphate (Fleet Enema) 133 ml DAILY PRN [place] CONSTIPATION; Start 10/25/18 at 15:30 Atropine Sulfate (Atropine (Syringe)) 0.5 mg PRN PRN IV heart rate less than 35 ; Start 10/25/18 at 22:00 Buspirone HCl (Buspar) 5 mg BID GTB Last administered on 11/05/18 08:55; Admin Dose 5 MG; Start 10/26/18 at 11:00 Enoxaparin Sodium (Lovenox) 30 mg DAILY SC Last administered on 11/05/18 09:05; Admin Dose 30 MG; Start 10/28/18 at 09:00 Meropenem/Sodium Chloride 50 ml @ 100 mls/hr Q12 IVPB Last administered on 11/05/18 08:55; Admin Dose 100 MLS/HR; Start 10/30/18 at 10:30 Metronidazole 100 ml @ 100 mls/hr Q8 IVPB Last administered on 11/05/18 05:54; Admin Dose 100 MLS/HR; Start 10/30/18 at 14:00 Lansoprazole (Prevacid) 15 mg DAILY@06 GTB Last administered on 11/05/18 05:54; Admin Dose 15 MG; Start 10/31/18 at 06:00 Lactulose (Enulose) 30 gm TID GTB Last administered on 11/05/18 08:55; Admin Dose 30 GM; Start 11/01/18 at 09:00 Acetaminophen/ Hydrocodone Bitart ([place] (5/325)) 1 tab Q4H PRN GTB MODERATE PAIN LEVEL 4-6 Last administered on 11/02/18 15:47; Admin Dose 1 TAB; Start 11/01/18 at 12:30 Doxazosin Mesylate (Cardura) 2 mg HS GTB Last administered on 11/04/18at 22:16; Admin Dose 2 MG; Start 11/03/18 at 21:00 Dextrose 1,000 ml @ 75 mls/hr [id number] IV Last administered on 11/05/18at 00:27; Admin Dose 75 MLS/HR; Start 11/04/18 at 10:00 Potassium Phosphate 15 mm/ Sodium Chloride 255 ml @ 63.75 mls/ hr ONCE ONCE IVPB ; Start 11/05/18 at 11:30; Stop 11/05/18 at 15:29 Amlodipine Besylate (Norvasc) 10 mg DAILY GTB ; Start 11/06/18 at 09:00 Metoprolol Tartrate (Lopressor) 25 mg DAILY GTB ; Start 11/06/18 at 09:00 HUGO CHIU Nov 05, 2018 11:12
[2018-11-05] MEDS ORDERED: POTASSIUM PHOSPHATE 15 MM in SOD CHLORIDE 0.9% 250 ML IVPB ONE (11:30)
[2018-11-05] MEDS: DESMOPRESSIN 4 MCG INJ SC SCH ×2 (12:34→22:11)
--- NOTE | 2018-11-05 17:05 | CONS ---
Assessment/Plan Assessment/Plan Hospital Course (Demo Recall) Sinus bradycardia: Due to metoprolol. No clear indication for MTP at this time as no tachyarrhythmia, LV dysfunction, or CAD. Will d/c Encephalopathy: unclear baseline but if worse, possibly from hypernatremia, though improving Acute on chronic diastolic heart failure: EF preserved, mod MR, mild-mod AR. Diuresed during this admission. Also s/p thoracentesis. Intravascularly euvolemic though third spacing from very low albumin. Hypernatremia: as high as 166, improving Sepsis due to UTI HTN Dementia Bedbound Dysphagia s/p PEG -d/c metoprolol -continue amlodipine 10mg -D5W -may need albumin to assist with oncotic pressures and avoid further third spacing Consultation Date/Type/Reason Admit Date/Time Oct 25, 2018 at 11:10 Date of Consultation: Nov 05, 2018 Type of Consult Cardiology Reason for Consultation Bradycardia Requesting Provider: JOAN MURPHY NP Date/Time of Note DATE: 11/05/18 TIME: 16:55 Hx of Present Illness 88 yo F with a h/o chronic diastolic CHF, HTN, ?dementia, dysphagia s/p PEG, bedbound, who was admitted from her SNF with respiratory distress. She was treated for sepsis due to UTI as well as CHF. She was noted to have hypernatremia up to 166 yesterday and now has improved to 159 with free water flushes and D5W. She was noted to have bradycardia overnight in the upper 40s, sinus. She is on metoprolol 25mg BID chronically and it was decreased to daily today. Unable to obtain history from pt as she is nonverbal unable to obtain from pt Past Medical History per HPI Home Meds Active Scripts Ertapenem Sodium (Invanz) 1 Gm Vial, 1 GM IV* DAILY for 5 Days, VIAL Prov:JOAN MURPHY NP 11/01/18 Furosemide* (Lasix*) 40 Mg Tablet, 40 MG PO DAILY for 14 Days, TAB Prov:JOAN MURPHY NP 10/31/18 Ipratropium-Albuterol (Ipratropium-Albuterol) 0.5-3 Mg/3 Ml Ampul.neb, 3 ML HHN Q2H RESP THERAPY PRN for Dyspnea for 30 Days Prov:JOAN MURPHY NP 10/31/18 Ipratropium-Albuterol (Ipratropium-Albuterol) 0.5-3 Mg/3 Ml Ampul.neb, 3 ML HHN Q6HWA RESP THERAPY for 30 Days Prov:JOAN MURPHY V. STATISTICIAN APPLIED 10/31/18 Metoprolol Tartrate* (Lopressor*) 25 Mg Tab, 25 MG PO BID, #60 TAB Prov:MURPHYJOAN V. STATISTICIAN APPLIED 10/31/18 Metronidazole* (Metronidazole*) 500 Mg Tablet, 500 MG G-TUBE Q8 for 5 Days, TAB Prov:MURPHYHALJOAN V. STATISTICIAN APPLIED 10/31/18 Meropenem (Merrem) 1 Gm Vial, 1 GM IV Q12 for 5 Days, VIAL Prov:MURPHYHALJOAN V. STATISTICIAN APPLIED 10/31/18 Reported Medications Magnesium Hydroxide* (Milk Of Magnesia*) 400 Mg/5 Ml Oral.susp, 30 ML GTB DAILY, ML 10/25/18 Bisacodyl (Dulcolax) 10 Mg Supp.rect, 10 MG RC DAILY PRN for CONSTIPATION, SUPP.RECT 10/25/18 Buspirone Hcl* (Buspirone Hcl*) 10 Mg Tab, 5 MG GTB BID, TAB 10/25/18 Escitalopram Oxalate* (Lexapro*) 10 Mg Tablet, 10 MG GTB DAILY, #30 TAB 10/25/18 Ferrous Sulfate* (Ferrous Sulfate*) 325 Mg Tabec, 325 MG GTB DAILY, TAB 10/25/18 Folic Acid* (Folic Acid*) 1 Mg Tablet, 1 MG GTB DAILY, TAB 10/25/18 Lactulose* (Lactulose*) 20 Gm/30 Ml Solution, 30 GM PO TID, ML 10/25/18 Latanoprost (Latanoprost) 2.5 Ml Drops, 1 DROP BOTH EYES QHS, #1 BOTTLE 10/25/18 Levothyroxine Sodium* (Levoxyl*) 50 Mcg Tablet, 50 MCG GTB BEFORE BREAKFAST, #30 TAB GIVE 30MIN PRIOR TO START OF GT FEEDING ON EMPTY STOMACH 10/25/18 Aspirin (Low Dose Aspirin) 81 Mg Tablet.dr, 81 MG GTB DAILY, #30 TAB 10/25/18 Discontinued Reported Medications Na Phos,M-B/Na Phos,Di-Ba (ENEMA [id number]) 133 Ml Enema, 133 ML RC EVERY 72 HOURS PRN for CONSTIPATION, ENEMA 10/25/18 Amlodipine Besylate* (Norvasc*) 5 Mg Tablet, 5 MG GTB DAILY, TAB HOLD FOR SBP <110 10/25/18 Medications Current Medications IV Flush (NS 3 ml) 3 ml PER PROTOCOL IV ; Start 10/25/18 at 14:30 Ondansetron HCl (Zofran Inj) 4 mg Q6H PRN IV NAUSEA/VOMITING; Start 10/25/18 at 14:30 Albuterol/ Ipratropium (Duoneb) 3 ml Q6HWA RESP THERAPY HHN Last administered on 11/05/18at 13:20; Admin Dose 3 ML; Start 10/25/18 at 20:00 Albuterol/ Ipratropium (Duoneb) 3 ml Q2H RESP THERAPY PRN HHN Dyspnea; Start 10/25/18 at 14:30 Bisacodyl (Dulcolax Supp) 10 mg DAILY PRN [place] CONSTIPATION; Start 10/25/18 at 1 5:30 Escitalopram Oxalate (Lexapro) 10 mg DAILY GTB Last administered on 11/05/18at 08:55; Admin Dose 10 MG; Start 10/26/18 at 09:00 Folic Acid (Folic Acid) 1 mg DAILY GTB Last administered on 11/05/18at 08:56; Admin Dose 1 MG; Start 10/26/18 at 09:00 Latanoprost (Xalatan) 1 drop QHS BOTH EYES Last administered on 11/05/18at 00:23; Admin Dose 1 DROP; Start 10/25/18 at 21:00 Levothyroxine Sodium (Synthroid) 50 mcg BEFORE BREAKFAST GTB Last administered on 11/05/18at 06:09; Admin Dose 50 MCG; Start 10/26/18 at 07:00 Magnesium Hydroxide (Milk Of Mag) 30 ml DAILY GTB Last administered on 11/05/18 at 08:55; Admin Dose 30 ML; Start 10/26/18 at 09:00 Sodium Biphosphate/ Sodium Phosphate (Fleet Enema) 133 ml DAILY PRN [place] CONSTIPATION; Start 10/25/18 at 15:30 Atropine Sulfate (Atropine (Syringe)) 0.5 mg PRN PRN IV heart rate less than 35 ; Start 10/25/18 at 22:00 Buspirone HCl (Buspar) 5 mg BID GTB Last administered on 11/05/18 08:55; Admin Dose 5 MG; Start 10/26/18 at 11:00 Enoxaparin Sodium (Lovenox) 30 mg DAILY SC Last administered on 11/05/18 09:05; Admin Dose 30 MG; Start 10/28/18 at 09:00 Meropenem/Sodium Chloride 50 ml @ 100 mls/hr Q12 IVPB Last administered on 11/05/18 08:55; Admin Dose 100 MLS/HR; Start 10/30/18 at 10:30 Metronidazole 100 ml @ 100 mls/hr Q8 IVPB Last administered on 11/05/18 05:54; Admin Dose 100 MLS/HR; Start 10/30/18 at 14:00 Lansoprazole (Prevacid) 15 mg DAILY@06 GTB Last administered on 11/05/18 05:54; Admin Dose 15 MG; Start 10/31/18 at 06:00 Lactulose (Enulose) 30 gm TID GTB Last administered on 11/05/18 12:17; Admin Dose 30 GM; Start 11/01/18 at 09:00 Acetaminophen/ Hydrocodone Bitart ([place] (5/325)) 1 tab Q4H PRN GTB MODERATE PAIN LEVEL 4-6 Last administered on 11/02/18 15:47; Admin Dose 1 TAB; Start 11/01/18 at 12:30 Doxazosin Mesylate (Cardura) 2 mg HS GTB Last administered on 11/04/18 22:16; Admin Dose 2 MG; Start 11/03/18 at 21:00 Dextrose 1,000 ml @ 75 mls/hr [id number] IV Last administered on 11/05/18 00:27; Admin Dose 75 MLS/HR; Start 11/04/18 at 10:00 Amlodipine Besylate (Norvasc) 10 mg DAILY GTB ; Start 11/06/18 at 09:00 Metoprolol Tartrate (Lopressor) 25 mg DAILY GTB ; Start 11/06/18 at 09:00 Desmopressin Acetate (Ddavp) 2 mcg BID SC Last administered on 11/05/18 12:34; Admin Dose 2 MCG; Start 11/05/18 at 12:00 Allergies: Coded Allergies: No Known Allergy (Unverified , 10/25/18) Social History Alcohol Use: none Smoking Status: Never smoker Drug Use: none Exam/Review of Systems Vital Signs Vitals Vital Signs Date Temp Pulse Resp B/P (MAP) Pulse Ox O2 O2 Flow FiO2 Time Delivery Rate 11/05/18 98.0 50 21 119/55 96 Nasal 2.0 15:32 (76) Cannula Intake and Output 11/04/18 11/04/18 11/05/18 1414:59 22:59 06:59 IntakeIntake Total 1125 ml 1070 ml OutputOutput Total 300 ml 200 ml 850 ml BalanceBalance 825 ml -200 ml 220 ml Exam Constitutional: No alert Head: normocephalic, atraumatic Neck: No jvd Respiratory: diminished breath sounds; No clear to auscultation Cardiovascular: regular rate and rhythm, systolic murmur (2/6 TIRSO); No edema Gastrointestinal: soft; No distended Musculoskeletal: No nl extremities to inspection Neurological: No nl mental status, No nl speech Labs Result Diagram: 11/05/18 0421 11/05/18 0808 Results 24hrs Laboratory Tests Test 11/04/18 21:07 11/05/18 00:29 11/05/18 04:21 11/05/18 08:04 Sodium Level 160 H 158 H 159 H White Blood Count 2.9 L Red Blood Count 2.59 L Hemoglobin 8.4 L Hematocrit 28.4 L Mean Corpuscular 109.7 H Volume Mean Corpuscular 32.4 Hemoglobin Mean Corpuscular 29.6 L Hemoglobin Concen t Red Cell 17.1 H Distribution Width Platelet Count 65 L Mean Platelet 10.9 H Volume Immature 1.000 H Granulocytes % Neutrophils % 47.5 Lymphocytes % 31.1 Monocytes % 9.7 Eosinophils % 9.7 H Basophils % 1.0 Nucleated Red 0.0 Blood Cells % Immature 0.030 Granulocytes # Neutrophils # 1.4 L Lymphocytes # 0.9 Monocytes # 0.3 Eosinophils # 0.3 Basophils # 0.0 Nucleated Red 0.0 Blood Cells # Potassium Level 3.6 Chloride Level 125 H Carbon Dioxide 38 H Level Anion Gap -4 L Blood Urea 54 H Nitrogen Creatinine 1.24 H Est Glomerular Filtrat Rate mL/min Glucose Level 132 Calcium Level 9.2 Magnesium Level 3.2 H Phosphorus Level 2.1 L Test 11/05/18 08:08 11/05/18 13:59 Sodium Level 159 H Blood Gas Blood arterial Specimen Source Arterial Blood 11/05/2018 2:25:3 Date Drawn 2 PM Arterial Blood pH 7.467 H (Temp corrected) Arterial Blood 53.6 H pCO2 (Temp correct) Arterial Blood 74.1 L pO2 (Temp corrected) Arterial Blood 37.9 H HCO3 Arterial Blood 12.5 H Base Excess Arterial Blood 94.4 L Oxygen Saturation Bahman Test ACCEPTAB Arterial Blood Right Radial Gas Puncture Site Arterial 0.3 Blood Carboxyhemo globin Arterial Blood 0.3 Methemoglobin Blood Gas A-a O2 55.0 H Differential Oxyhemoglobin 93.8 Percent Blood Gas 37.0 Temperature Blood Gas NASAL CANNULA Modality FiO2 27.0 Blood Gas TM Notified Whom Blood Gas 11/05/2018 2:35:0 Notified Time 4 PM Medications Medications Current Medications IV Flush (NS 3 ml) 3 ml PER PROTOCOL IV ; Start 10/25/18 at 14:30 Ondansetron HCl (Zofran Inj) 4 mg Q6H PRN IV NAUSEA/VOMITING; Start 10/25/18 at 14:30 Albuterol/ Ipratropium (Duoneb) 3 ml Q6HWA RESP THERAPY HHN Last administered on 11/05/18at 13:20; Admin Dose 3 ML; Start 10/25/18 at 20:00 Albuterol/ Ipratropium (Duoneb) 3 ml Q2H RESP THERAPY PRN HHN Dyspnea; Start 10/25/18 at 14:30 Bisacodyl (Dulcolax Supp) 10 mg DAILY PRN [place] CONSTIPATION; Start 10/25/18 at 15:30 Escitalopram Oxalate (Lexapro) 10 mg DAILY GTB Last administered on 11/05/18 08:55; Admin Dose 10 MG; Start 10/26/18 at 09:00 Folic Acid (Folic Acid) 1 mg DAILY GTB Last administered on 11/05/18 08:56; Admin Dose 1 MG; Start 10/26/18 at 09:00 Latanoprost (Xalatan) 1 drop QHS BOTH EYES Last administered on 11/05/18 00:23; Admin Dose 1 DROP; Start 10/25/18 at 21:00 Levothyroxine Sodium (Synthroid) 50 mcg BEFORE BREAKFAST GTB Last administered on 11/05/18 06:09; Admin Dose 50 MCG; Start 10/26/18 at 07:00 Magnesium Hydroxide (Milk Of Mag) 30 ml DAILY GTB Last administered on 11/05/18 08:55; Admin Dose 30 ML; Start 10/26/18 at 09:00 Sodium Biphosphate/ Sodium Phosphate (Fleet Enema) 133 ml DAILY PRN [place] CONSTIPATION; Start 10/25/18 at 15:30 Atropine Sulfate (Atropine (Syringe)) 0.5 mg PRN PRN IV heart rate less than 35 ; Start 10/25/18 at 22:00 Buspirone HCl (Buspar) 5 mg BID GTB Last administered on 11/05/18 08:55; Admin Dose 5 MG; Start 10/26/18 at 11:00 Enoxaparin Sodium (Lovenox) 30 mg DAILY SC Last administered on 11/05/18 09:05; Admin Dose 30 MG; Start 10/28/18 at 09:00 Meropenem/Sodium Chloride 50 ml @ 100 mls/hr Q12 IVPB Last administered on 11/05/18 08:55; Admin Dose 100 MLS/HR; Start 10/30/18 at 10:30 Metronidazole 100 ml @ 100 mls/hr Q8 IVPB Last administered on 11/05/18 05:54; Admin Dose 100 MLS/HR; Start 10/30/18 at 14:00 Lansoprazole (Prevacid) 15 mg DAILY@06 GTB Last administered on 11/05/18 05:54; Admin Dose 15 MG; Start 10/31/18 at 06:00 Lactulose (Enulose) 30 gm TID GTB Last administered on 11/05/18 12:17; Admin Dose 30 GM; Start 11/01/18 at 09:00 Acetaminophen/ Hydrocodone Bitart ([place] (5/325)) 1 tab Q4H PRN GTB MODERATE PAIN LEVEL 4-6 Last administered on 11/02/18 15:47; Admin Dose 1 TAB; Start 11/01/18 at 12:30 Doxazosin Mesylate (Cardura) 2 mg HS GTB Last administered on 11/04/18 22:16; Admin Dose 2 MG; Start 11/03/18 at 21:00 Dextrose 1,000 ml @ 75 mls/hr [id number] IV Last administered on 11/05/18at 00:27; Admin Dose 75 MLS/HR; Start 11/04/18 at 10:00 Amlodipine Besylate (Norvasc) 10 mg DAILY GTB ; Start 11/06/18 at 09:00 Metoprolol Tartrate (Lopressor) 25 mg DAILY GTB ; Start 11/06/18 at 09:00 Desmopressin Acetate (Ddavp) 2 mcg BID SC Last administered on 11/05/18at 12:34; Admin Dose 2 MCG; Start 11/05/18 at 12:00 ADELA RINCON Nov 05, 2018 17:05
--- NOTE | 2018-11-05 20:32 | CONS ---
Assessment/Plan Assessment/Plan Hospital Course (Demo Recall) 1. Hypernatremia. The hypernatremia is correcting with water flushes down the PEG and IV D5W. would continue current treatment . 2. acute renal failure , her renal function is about the same as yesterday. She is nonoliguric. 3. dementia 4. diastolic CHF, bilateral pleural effusions 5. respiratory failure 6. hepatic steatatosis Consultation Date/Type/Reason Admit Date/Time Oct 25, 2018 at 11:10 Initial Consult Date 11/05/18 Type of Consult Nephrology Requesting Provider: JOAN MURPHY NP Date/Time of Note DATE: 11/05/18 TIME: 20:13 24 HR Interval Summary Free Text/Dictation Patient is lethargic and unresponsive. Her daughter and grandson are in the room with her. They say that she has not been responsive to them either. Subjective hx not possible: pt non-verbal Exam/Review of Systems Exam Vitals Vital Signs Date Temp Pulse Resp B/P (MAP) Pulse Ox O2 O2 Flow FiO2 Time Delivery Rate 11/05/18 2.0 18:54 11/05/18 50 16:00 11/05/18 98.0 21 119/55 96 Nasal 15:32 (76) Cannula Intake and Output 11/04/18 11/04/18 11/05/18 1515:00 23:00 07:00 IntakeIntake Total 1025 ml 1070 ml OutputOutput Total 300 ml 200 ml 850 ml BalanceBalance 725 ml -200 ml 220 ml Constitutional: non-verbal, frail Neck: supple Respiratory: diminished breath sounds Cardiovascular: regular rate and rhythm Gastrointestinal: soft, non-tender Musculoskeletal: nl extremities to inspection Results Result Diagram: 11/05/18 0421 11/05/18 0808 Results 24hrs Laboratory Tests Test 11/04/18 21:07 11/05/18 00:29 11/05/18 04:21 11/05/18 08:04 Sodium Level 160 H 158 H 159 H White Blood Count 2.9 L Red Blood Count 2.59 L Hemoglobin 8.4 L Hematocrit 28.4 L Mean Corpuscular 109.7 H Volume Mean Corpuscular 32.4 Hemoglobin Mean Corpuscular 29.6 L Hemoglobin Concen t Red Cell 17.1 H Distribution Width Platelet Count 65 L Mean Platelet 10.9 H Volume Immature 1.000 H Granulocytes % Neutrophils % 47.5 Lymphocytes % 31.1 Monocytes % 9.7 Eosinophils % 9.7 H Basophils % 1.0 Nucleated Red 0.0 Blood Cells % Immature 0.030 Granulocytes # Neutrophils # 1.4 L Lymphocytes # 0.9 Monocytes # 0.3 Eosinophils # 0.3 Basophils # 0.0 Nucleated Red 0.0 Blood Cells # Potassium Level 3.6 Chloride Level 125 H Carbon Dioxide 38 H Level Anion Gap -4 L Blood Urea 54 H Nitrogen Creatinine 1.24 H Est Glomerular Filtrat Rate mL/min Glucose Level 132 Calcium Level 9.2 Magnesium Level 3.2 H Phosphorus Level 2.1 L Test 11/05/18 08:08 11/05/18 13:59 Sodium Level 159 H Blood Gas Blood arterial Specimen Source Arterial Blood 11/05/2018 2:25:3 Date Drawn 2 PM Arterial Blood pH 7.467 H (Temp corrected) Arterial Blood 53.6 H pCO2 (Temp correct) Arterial Blood 74.1 L pO2 (Temp corrected) Arterial Blood 37.9 H HCO3 Arterial Blood 12.5 H Base Excess Arterial Blood 94.4 L Oxygen Saturation Bahman Test ACCEPTAB Arterial Blood Right Radial Gas Puncture Site Arterial 0.3 Blood Carboxyhemo globin Arterial Blood 0.3 Methemoglobin Blood Gas A-a O2 55.0 H Differential Oxyhemoglobin 93.8 Percent Blood Gas 37.0 Temperature Blood Gas NASAL CANNULA Modality FiO2 27.0 Blood Gas TM Notified Whom Blood Gas 11/05/2018 2:35:0 Notified Time 4 PM Medications Medication Current Medications IV Flush (NS 3 ml) 3 ml PER PROTOCOL IV ; Start 10/25/18 at 14:30 Ondansetron HCl (Zofran Inj) 4 mg Q6H PRN IV NAUSEA/VOMITING; Start 10/25/18 at 14:30 Albuterol/ Ipratropium (Duoneb) 3 ml Q6HWA RESP THERAPY HHN Last administered on 11/05/18at 13:20; Admin Dose 3 ML; Start 10/25/18 at 20:00 Albuterol/ Ipratropium (Duoneb) 3 ml Q2H RESP THERAPY PRN HHN Dyspnea; Start 10/25/18 at 14:30 Bisacodyl (Dulcolax Supp) 10 mg DAILY PRN [place] CONSTIPATION; Start 10/25/18 at 15:30 Escitalopram Oxalate (Lexapro) 10 mg DAILY GTB Last administered on 11/05/18 08:55; Admin Dose 10 MG; Start 10/26/18 at 09:00 Folic Acid (Folic Acid) 1 mg DAILY GTB Last administered on 11/05/18 08:56; Admin Dose 1 MG; Start 10/26/18 at 09:00 Latanoprost (Xalatan) 1 drop QHS BOTH EYES Last administered on 11/05/18 00:23; Admin Dose 1 DROP; Start 10/25/18 at 21:00 Levothyroxine Sodium (Synthroid) 50 mcg BEFORE BREAKFAST GTB Last administered on 11/05/18 06:09; Admin Dose 50 MCG; Start 10/26/18 at 07:00 Magnesium Hydroxide (Milk Of Mag) 30 ml DAILY GTB Last administered on 11/05/18 08:55; Admin Dose 30 ML; Start 10/26/18 at 09:00 Sodium Biphosphate/ Sodium Phosphate (Fleet Enema) 133 ml DAILY PRN [place] CONSTIPATION; Start 10/25/18 at 15:30 Atropine Sulfate (Atropine (Syringe)) 0.5 mg PRN PRN IV heart rate less than 35 ; Start 10/25/18 at 22:00 Buspirone HCl (Buspar) 5 mg BID GTB Last administered on 11/05/18 08:55; Admin Dose 5 MG; Start 10/26/18 at 11:00 Enoxaparin Sodium (Lovenox) 30 mg DAILY SC Last administered on 11/05/18 09:05; Admin Dose 30 MG; Start 10/28/18 at 09:00 Meropenem/Sodium Chloride 50 ml @ 100 mls/hr Q12 IVPB Last administered on 11/05/18 08:55; Admin Dose 100 MLS/HR; Start 10/30/18 at 10:30 Lansoprazole (Prevacid) 15 mg DAILY@06 GTB Last administered on 11/05/18 05:54; Admin Dose 15 MG; Start 10/31/18 at 06:00 Lactulose (Enulose) 30 gm TID GTB Last administered on 11/05/18 12:17; Admin Dose 30 GM; Start 11/01/18 at 09:00 Acetaminophen/ Hydrocodone Bitart ([place] (5/325)) 1 tab Q4H PRN GTB MODERATE PAIN LEVEL 4-6 Last administered on 11/02/18at 15:47; Admin Dose 1 TAB; Start 11/01/18 at 12:30 Doxazosin Mesylate (Cardura) 2 mg HS GTB Last administered on 11/04/18at 22:16; Admin Dose 2 MG; Start 11/03/18 at 21:00 Dextrose 1,000 ml @ 75 mls/hr [id number] IV Last administered on 11/05/18at 00:27; Admin Dose 75 MLS/HR; Start 11/04/18 at 10:00 Amlodipine Besylate (Norvasc) 10 mg DAILY GTB ; Start 11/06/18 at 09:00 Desmopressin Acetate (Ddavp) 2 mcg BID SC Last administered on 11/05/18at 12:34; Admin Dose 2 MCG; Start 11/05/18 at 12:00 Metronidazole (Flagyl) 500 mg Q8 GTB ; Start 11/05/18 at 22:00 NATASHA MOSLEY MD Nov 05, 2018 20:23
[2018-11-05] MEDS: DOXAZOSIN 2 MG TAB GTB SCH (21:27)
[2018-11-05] MEDS: metroNIDAZOLE 500 MG TAB GTB SCH (21:27)
[2018-11-06] VITALS (10 sets, daily range): BP systolic 102–132; BP diastolic 43–78; PULSE 50–64; RESP 18–20
[2018-11-06] MEDS: DEXTROSE 5% 1,000 ML IV SCH ×2 (02:02→16:46)
[2018-11-06] MEDS: metroNIDAZOLE 500 MG TAB GTB SCH ×3 (05:15→21:14)
[2018-11-06] MEDS: LEVOTHYROXINE 50 MCG TAB GTB SCH (05:16)
[2018-11-06] MEDS: LANSOPRAZOLE 15 MG CAP GTB SCH (06:00)
[2018-11-06] MEDS: ALBUTEROL/IPRATROPIUM (NEB) 3 ML AMP HHN SCH ×4 (08:07→19:31)
[2018-11-06] MEDS: DESMOPRESSIN 4 MCG INJ SC SCH (08:17)
[2018-11-06] MEDS: MEROPENEM 1 GM/50ML(PMX) 50 ML IVPB SCH ×2 (08:18→21:13)
[2018-11-06] MEDS: LACTULOSE 30ML CUP GTB SCH (08:18)
[2018-11-06] MEDS: MAGNESIUM HYDROXIDE 30ML CUP GTB SCH (08:18)
[2018-11-06] MEDS: ESCITALOPRAM 10 MG TAB GTB SCH (08:19)
[2018-11-06] MEDS: FOLIC ACID 1 MG TAB GTB SCH (08:19)
[2018-11-06] MEDS: BUSPIRONE 5 MG TAB GTB SCH ×2 (08:19→21:13)
[2018-11-06] MEDS: ENOXAPARIN 30 MG/0.3 ML SYG SC SCH (08:41)
[2018-11-06] MEDS: AMLODIPINE 5 MG TAB GTB SCH (08:41)
--- NOTE | 2018-11-06 08:43 | CONS ---
Assessment/Plan Assessment/Plan Hospital Course (Demo Recall) Sinus bradycardia: Likely due to metoprolol. No clear indication for MTP at this time as no tachyarrhythmia, LV dysfunction, or CAD. Improved Encephalopathy: unclear baseline but if worse, possibly from hypernatremia, though improving Acute on chronic diastolic heart failure: EF preserved, mod MR, mild-mod AR. Diuresed during this admission. Also s/p thoracentesis. Intravascularly euvolemic though third spacing from very low albumin. Hypernatremia: as high as 166, improving Sepsis due to UTI HTN Dementia Bedbound Dysphagia s/p PEG -decrease to amlodipine 5 mg with holding parameters -D5W -may need albumin to assist with oncotic pressures and avoid further third spacing Consultation Date/Type/Reason Admit Date/Time Oct 25, 2018 at 11:10 Initial Consult Date 11/05/18 Type of Consult Cardiology Requesting Provider: JOAN MURPHY NP Date/Time of Note DATE: 11/06/18 TIME: 08:41 24 HR Interval Summary Free Text/Dictation No events. Remains sinus bradycardic in the 50s but better. Still nonverbal. Na improving Exam/Review of Systems Vital Signs Vitals Vital Signs Date Temp Pulse Resp B/P (MAP) Pulse Ox O2 O2 Flow FiO2 Time Delivery Rate 11/06/18 52 08:19 11/06/18 2.0 08:08 11/06/18 16 96 Nasal 08:08 Cannula 11/06/18 97.4 116/48 07:16 (70) Intake and Output 11/05/18 11/05/18 11/06/18 1515:00 23:00 07:00 IntakeIntake Total 50 ml 1095 ml 920 ml OutputOutput Total 700 ml 550 ml BalanceBalance 50 ml 395 ml 370 ml Exam Constitutional: No alert Neck: supple; No jvd Respiratory: diminished breath sounds; No clear to auscultation Cardiovascular: No regular rate and rhythm (bradycardic), No edema Gastrointestinal: soft, non-tender; No distended Neurological: No nl mental status, No nl speech Labs Result Diagram: 11/06/18 0601 11/06/18 0601 Results 24hrs Laboratory Tests Test 11/05/18 13:59 11/06/18 06:01 Blood Gas Specimen Source Blood arterial Arterial Blood Date Drawn 11/05/2018 2:25:32 PM Arterial Blood pH (Temp corrected) 7.467 H Arterial Blood pCO2 (Temp correct) 53.6 H Arterial Blood pO2 (Temp corrected) 74.1 L Arterial Blood HCO3 37.9 H Arterial Blood Base Excess 12.5 H Arterial Blood Oxygen Saturation 94.4 L Bahman Test ACCEPTAB Arterial Blood Gas Puncture Site Right Radial Arterial Blood Carboxyhemoglobin 0.3 Arterial Blood Methemoglobin 0.3 Blood Gas A-a O2 Differential 55.0 H Oxyhemoglobin Percent 93.8 Blood Gas Temperature 37.0 Blood Gas Modality NASAL CANNULA FiO2 27.0 Blood Gas Notified Whom TM Blood Gas Notified Time 11/05/2018 2:35:04 PM White Blood Count 3.6 #L Red Blood Count 2.61 L Hemoglobin 8.4 L Hematocrit 28.5 L Mean Corpuscular Volume 109.2 H Mean Corpuscular Hemoglobin 32.2 Mean Corpuscular Hemoglobin Concent 29.5 L Red Cell Distribution Width 17.1 H Platelet Count 60 L Mean Platelet Volume 11.3 H Immature Granulocytes % 0.600 H Neutrophils % 58.8 Lymphocytes % 20.8 Monocytes % 10.7 Eosinophils % 8.5 H Basophils % 0.6 Nucleated Red Blood Cells % 0.0 Immature Granulocytes # 0.020 Neutrophils # 2.1 Lymphocytes # 0.7 L Monocytes # 0.4 Eosinophils # 0.3 Basophils # 0.0 Nucleated Red Blood Cells # 0.0 Sodium Level 156 H Potassium Level 3.7 Chloride Level 123 H Carbon Dioxide Level 36 H Anion Gap -3 L Blood Urea Nitrogen 62 H Creatinine 1.17 H Est Glomerular Filtrat Rate mL/min Glucose Level 162 Calcium Level 8.7 Phosphorus Level 2.0 L Magnesium Level 3.3 H Medications Medications Current Medications IV Flush (NS 3 ml) 3 ml PER PROTOCOL IV ; Start 10/25/18 at 14:30 Ondansetron HCl (Zofran Inj) 4 mg Q6H PRN IV NAUSEA/VOMITING; Start 10/25/18 at 14:30 Albuterol/ Ipratropium (Duoneb) 3 ml Q6HWA RESP THERAPY HHN Last administered on 11/06/18at 08:08; Admin Dose 3 ML; Start 10/25/18 at 20:00 Albuterol/ Ipratropium (Duoneb) 3 ml Q2H RESP THERAPY PRN HHN Dyspnea; Start 10/25/18 at 14:30 Bisacodyl (Dulcolax Supp) 10 mg DAILY PRN [place] CONSTIPATION; Start 10/25/18 at 15:30 Escitalopram Oxalate (Lexapro) 10 mg DAILY GTB Last administered on 11/05/18 08:55; Admin Dose 10 MG; Start 10/26/18 at 09:00 Folic Acid (Folic Acid) 1 mg DAILY GTB Last administered on 11/05/18 08:56; Admin Dose 1 MG; Start 10/26/18 at 09:00 Latanoprost (Xalatan) 1 drop QHS BOTH EYES Last administered on 11/05/18 21:41; Admin Dose 1 DROP; Start 10/25/18 at 21:00 Levothyroxine Sodium (Synthroid) 50 mcg BEFORE BREAKFAST GTB Last administered on 11/06/18 05:16; Admin Dose 50 MCG; Start 10/26/18 at 07:00 Magnesium Hydroxide (Milk Of Mag) 30 ml DAILY GTB Last administered on 11/05/18 08:55; Admin Dose 30 ML; Start 10/26/18 at 09:00 Atropine Sulfate (Atropine (Syringe)) 0.5 mg PRN PRN IV heart rate less than 35 ; Start 10/25/18 at 22:00 Buspirone HCl (Buspar) 5 mg BID GTB Last administered on 11/05/18 21:27; Admin Dose 5 MG; Start 10/26/18 at 11:00 Enoxaparin Sodium (Lovenox) 30 mg DAILY SC Last administered on 11/05/18 09:05; Admin Dose 30 MG; Start 10/28/18 at 09:00 Meropenem/Sodium Chloride 50 ml @ 100 mls/hr Q12 IVPB Last administered on 21:25; Admin Dose 100 MLS/HR; Start 10/30/18 at 10:30 Lansoprazole (Prevacid) 15 mg DAILY@06 GTB Last administered on 11/05/18 05:54; Admin Dose 15 MG; Start 10/31/18 at 06:00 Lactulose (Enulose) 30 gm TID GTB Last administered on 11/05/18 21:25; Admin Dose 30 GM; Start 11/01/18 at 09:00 Acetaminophen/ Hydrocodone Bitart ([place] (5/325)) 1 tab Q4H PRN GTB MODERATE PAIN LEVEL 4-6 Last administered on 11/02/18at 15:47; Admin Dose 1 TAB; Start 11/01/18 at 12:30 Doxazosin Mesylate (Cardura) 2 mg HS GTB Last administered on 11/05/18at 21:27; Admin Dose 2 MG; Start 11/03/18 at 21:00 Dextrose 1,000 ml @ 75 mls/hr [id number] IV Last administered on 11/06/18at 02:02; Admin Dose 75 MLS/HR; Start 11/04/18 at 10:00 Desmopressin Acetate (Ddavp) 2 mcg BID SC Last administered on 11/05/18at 22:11; Admin Dose 2 MCG; Start 11/05/18 at 12:00 Metronidazole (Flagyl) 500 mg Q8 GTB Last administered on 11/06/18at 05:15; Admin Dose 500 MG; Start 11/05/18 at 22:00 Amlodipine Besylate (Norvasc) 5 mg DAILY GTB ; Start 11/06/18 at 09:00 ADELA RINCON November 06, 2018 08:42
[2018-11-06] MEDS ORDERED: AMLODIPINE 10 MG TAB GTB SCH (09:00)
[2018-11-06] MEDS ORDERED: METOPROLOL 25 MG TAB GTB SCH (09:00)
--- NOTE | 2018-11-06 10:27 | PN ---
Date/Time of Note Date/Time of Note DATE: 11/06/18 TIME: 10:14 Assessment/Plan VTE Prophylaxis Risk score (from Nsg)>0 risk: 6 SCD applied (from Nsg): Yes Pharmacological prophylaxis: LMWH Lines/Catheters IV Catheter Type (from Nrsg): Peripheral IV Urinary Cath still in place: Yes Reason Cath still needed: other (indicate) Assessment/Plan Hospital Course SUBJECTIVE: She remains somnolent. OBJECTIVE: Vital signs-see below PHYSICAL EXAM: Constitutional: Elderly/somnolent female, not in acute distress. HEENT: Head atraumatic and normocephalic. Eyes: Extraocular muscles intact. Anicteric sclerae. Pupils equal bilaterally, reactive to light. NECK: Supple without lymph node. CHEST: Clear and good breath sounds equally. No wheezing. No rhonchi. HEART: S1, S2. Regular rate and rhythm. ABDOMEN: +Gtube.Soft with no rebound tenderness. Bowel sounds were present. EXTREMITIES: Generalized weakness in all the extremities.No focal deficit. No cyanosis, clubbing or edema. NEUROLOGIC: Demented/somnolent/non verbal. No focal deficit. PSYCHOSOCIAL: Patient is somnolent, unable to assess mental status. INTEGUMENTARY: Moist mucous membranes. Good skin turgor, intact. ASSESSMENT AND PLAN:88 year old female with past medical history of hypertension, hyperlipidemia, hypothyroidism, dementia, dysphagia status post G- tube placement, and carotid artery disease transferred from the SNF w/resp distress found to have sepsis/uti/ pna/CHF exacerbation.. Acute hypernatremia w/around 6L free water deficit -Gradually improving. -on h20 flush via Gt,D5W -DC DDAVP per nephrology recommendations. Hypernatremia management per certified pathology assistant-Will avid overcorrection -Continue holding Lasix for now -NV checks Mild acute kidney injury, likely hemodynamic/dehydration -Creatinine improving. Management per nephrology. -Continue gentle fluids. Acute diastolic CHF with acute hypoxic respiratory failure: -Clinically compensated -Continue beta-blockers. -Appreciate cardiology recommendations s/p Sepsis: source:uti/aspiration pna -On appropriate antimicrobials- last dose pending repeat urine cs. Right pleural effusion -Status post thoracentesis. Follow-up fluid studies. -Stable clinical exam Multidrug-resistant E. coli/ESBL UTI -On appropriate agent -f/u Repeat urine culture s/p Hypoxemic respiratory failure secondary to sepsis/CHF -Stable. Hypertension. -Continue the patient on appropriate antihypertensives. Hypothyroidism. -Continue Synthroid. Dysphagia, w/GT feeding -Status post replacement G-tube, continue tube feeding which is modified for hy pernatremia correction. Chronic anemia -Stable H&H Electrolyte derangement/hypophosphatemia -mgmt per nephro Sinus bradycardia 2/2 BB -stable -tele Thrombocytopenia -stable -monitor Prophylaxis: Lovenox/Prevacid Disposition: Patient needs further electrolyte monitoring. cont.tele.once lytes level/HR improves,DC planning to [facility] vs SNF.. SW to find out family information to address goals of care/code status. Patient was seen in collaboration with Dr. Smith Result Diagram: 11/06/1860011/06/18 06 Results 24hrs Laboratory Tests Test 11/05/18 13:59 11/06/18 06:01 Blood Gas Specimen Source Blood arterial Arterial Blood Date Drawn 11/05/2018 2:25:32 PM Arterial Blood pH (Temp corrected) 7.467 H Arterial Blood pCO2 (Temp correct) 53.6 H Arterial Blood pO2 (Temp corrected) 74.1 L Arterial Blood HCO3 37.9 H Arterial Blood Base Excess 12.5 H Arterial Blood Oxygen Saturation 94.4 L Bahman Test ACCEPTAB Arterial Blood Gas Puncture Site Right Radial Arterial Blood Carboxyhemoglobin 0.3 Arterial Blood Methemoglobin 0.3 Blood Gas A-a O2 Differential 55.0 H Oxyhemoglobin Percent 93.8 Blood Gas Temperature 37.0 Blood Gas Modality NASAL CANNULA FiO2 27.0 Blood Gas Notified Whom TM Blood Gas Notified Time 11/05/2018 2:35:04 PM White Blood Count 3.6 #L Red Blood Count 2.61 L Hemoglobin 8.4 L Hematocrit 28.5 L Mean Corpuscular Volume 109.2 H Mean Corpuscular Hemoglobin 32.2 Mean Corpuscular Hemoglobin Concent 29.5 L Red Cell Distribution Width 17.1 H Platelet Count 60 L Mean Platelet Volume 11.3 H Immature Granulocytes % 0.600 H Neutrophils % 58.8 Lymphocytes % 20.8 Monocytes % 10.7 Eosinophils % 8.5 H Basophils % 0.6 Nucleated Red Blood Cells % 0.0 Immature Granulocytes # 0.020 Neutrophils # 2.1 Lymphocytes # 0.7 L Monocytes # 0.4 Eosinophils # 0.3 Basophils # 0.0 Nucleated Red Blood Cells # 0.0 Sodium Level 156 H Potassium Level 3.7 Chloride Level 123 H Carbon Dioxide Level 36 H Anion Gap -3 L Blood Urea Nitrogen 62 H Creatinine 1.17 H Est Glomerular Filtrat Rate mL/min Glucose Level 162 Calcium Level 8.7 Phosphorus Level 2.0 L Magnesium Level 3.3 H Exam/Review of Systems Exam Vitals Vital Signs Date Temp Pulse Resp B/P (MAP) Pulse Ox O2 O2 Flow FiO2 Time Delivery Rate 11/06/18 52 08:19 11/06/18 2.0 08:08 11/06/18 16 96 Nasal 08:08 Cannula 11/06/18 97.4 116/48 07:16 (70) Intake and Output 11/05/18 11/05/18 11/06/18 1515:00 23:00 07:00 IntakeIntake Total 50 ml 1095 ml 920 ml OutputOutput Total 700 ml 550 ml BalanceBalance 50 ml 395 ml 370 ml Results Results 24hrs Laboratory Tests Test 11/05/18 13:59 11/06/18 06:01 Blood Gas Specimen Source Blood arterial Arterial Blood Date Drawn 11/05/2018 2:25:32 PM Arterial Blood pH (Temp corrected) 7.467 H Arterial Blood pCO2 (Temp correct) 53.6 H Arterial Blood pO2 (Temp corrected) 74.1 L Arterial Blood HCO3 37.9 H Arterial Blood Base Excess 12.5 H Arterial Blood Oxygen Saturation 94.4 L Bahman Test ACCEPTAB Arterial Blood Gas Puncture Site Right Radial Arterial Blood Carboxyhemoglobin 0.3 Arterial Blood Methemoglobin 0.3 Blood Gas A-a O2 Differential 55.0 H Oxyhemoglobin Percent 93.8 Blood Gas Temperature 37.0 Blood Gas Modality NASAL CANNULA FiO2 27.0 Blood Gas Notified Whom TM Blood Gas Notified Time 11/05/2018 2:35:04 PM White Blood Count 3.6 #L Red Blood Count 2.61 L Hemoglobin 8.4 L Hematocrit 28.5 L Mean Corpuscular Volume 109.2 H Mean Corpuscular Hemoglobin 32.2 Mean Corpuscular Hemoglobin Concent 29.5 L Red Cell Distribution Width 17.1 H Platelet Count 60 L Mean Platelet Volume 11.3 H Immature Granulocytes % 0.600 H Neutrophils % 58.8 Lymphocytes % 20.8 Monocytes % 10.7 Eosinophils % 8.5 H Basophils % 0.6 Nucleated Red Blood Cells % 0.0 Immature Granulocytes # 0.020 Neutrophils # 2.1 Lymphocytes # 0.7 L Monocytes # 0.4 Eosinophils # 0.3 Basophils # 0.0 Nucleated Red Blood Cells # 0.0 Sodium Level 156 H Potassium Level 3.7 Chloride Level 123 H Carbon Dioxide Level 36 H Anion Gap -3 L Blood Urea Nitrogen 62 H Creatinine 1.17 H Est Glomerular Filtrat Rate mL/min Glucose Level 162 Calcium Level 8.7 Phosphorus Level 2.0 L Magnesium Level 3.3 H Medications Medication Current Medications IV Flush (NS 3 ml) 3 ml PER PROTOCOL IV ; Start 10/25/18 at 14:30 Ondansetron HCl (Zofran Inj) 4 mg Q6H PRN IV NAUSEA/VOMITING; Start 10/25/18 at 14:30 Albuterol/ Ipratropium (Duoneb) 3 ml Q6HWA RESP THERAPY HHN Last administered on 11/06/18 08:08; Admin Dose 3 ML; Start 10/25/18 at 20:00 Albuterol/ Ipratropium (Duoneb) 3 ml Q2H RESP THERAPY PRN HHN Dyspnea; Start 10/25/18 at 14:30 Bisacodyl (Dulcolax Supp) 10 mg DAILY PRN [place] CONSTIPATION; Start 10/25/18 at 15:30 Escitalopram Oxalate (Lexapro) 10 mg DAILY GTB Last administered on 11/06/18 08:19; Admin Dose 10 MG; Start 10/26/18 at 09:00 Folic Acid (Folic Acid) 1 mg DAILY GTB Last administered on 11/06/18 08:19; Admin Dose 1 MG; Start 10/26/18 at 09:00 Latanoprost (Xalatan) 1 drop QHS BOTH EYES Last administered on 11/05/18 21:4 1; Admin Dose 1 DROP; Start 10/25/18 at 21:00 Levothyroxine Sodium (Synthroid) 50 mcg BEFORE BREAKFAST GTB Last administered on 11/06/18 05:16; Admin Dose 50 MCG; Start 10/26/18 at 07:00 Magnesium Hydroxide (Milk Of Mag) 30 ml DAILY GTB Last administered on 11/06/18 08:18; Admin Dose 30 ML; Start 10/26/18 at 09:00 Atropine Sulfate (Atropine (Syringe)) 0.5 mg PRN PRN IV heart rate less than 35 ; Start 10/25/18 at 22:00 Buspirone HCl (Buspar) 5 mg BID GTB Last administered on 11/06/18 08:19; Admin Dose 5 MG; Start 10/26/18 at 11:00 Enoxaparin Sodium (Lovenox) 30 mg DAILY SC Last administered on 11/06/18 08:41; Admin Dose 30 MG; Start 10/28/18 at 09:00 Meropenem/Sodium Chloride 50 ml @ 100 mls/hr Q12 IVPB Last administered on 11/06/18 08:18; Admin Dose 100 MLS/HR; Start 10/30/18 at 10:30 Lansoprazole (Prevacid) 15 mg DAILY@06 GTB Last administered on 11/05/18 05:54; Admin Dose 15 MG; Start 10/31/18 at 06:00 Lactulose (Enulose) 30 gm TID GTB Last administered on 11/06/18 08:18; Admin Dose 30 GM; Start 11/01/18 at 09:00 Acetaminophen/ Hydrocodone Bitart ([place] (5/325)) 1 tab Q4H PRN GTB MODERATE PAIN LEVEL 4-6 Last administered on 11/02/18at 15:47; Admin Dose 1 TAB; Start at 12:30 Doxazosin Mesylate (Cardura) 2 mg HS GTB Last administered on 11/05/18 21:27; Admin Dose 2 MG; Start 11/03/18 at 21:00 Dextrose 1,000 ml @ 75 mls/hr [id number] IV Last administered on 11/06/18 02:02; Admin Dose 75 MLS/HR; Start 11/04/18 at 10:00 Desmopressin Acetate (Ddavp) 2 mcg BID SC Last administered on 11/06/18 08:17; Admin Dose 2 MCG; Start 11/05/18 at 12:00 Metronidazole (Flagyl) 500 mg Q8 GTB Last administered on 11/06/18 05:15; Admin Dose 500 MG; Start 11/05/18 at 22:00 Amlodipine Besylate (Norvasc) 5 mg DAILY GTB ; Start 11/06/18 at 09:00 JOAN MURPHY NP November 06, 2018 10:24
--- NOTE | 2018-11-06 11:08 | CONS ---
Assessment/Plan Assessment/Plan Assessment/Plan (Daily) Assessment and recommendations; 1. Patient admitted with sepsis due to UTI pneumonia currently on appropriate treatment regimen. 2. CHF, status post right thoracentesis earlier. 3. Chronic renal insufficiency. 4. Severe hyper natremia. 5. Anemia and severe thrombocytopenia. 6. History of glaucoma. 7. Mild acute renal injury with improving serum creatinine. 8. Anemia. Continue with supportive care. Further recommendations per machine fitter. Consultation Date/Type/Reason Admit Date/Time Oct 25, 2018 at 11:10 Initial Consult Date 10/27/18 Type of Consult Pulmonary Patient condition is stable. General exam; elderly woman, currently in no distress. Requesting Provider: JOAN MURPHY NP Date/Time of Note DATE: 11/06/18 TIME: 11:06 24 HR Interval Summary Free Text/Dictation Patient's condition is stable overall. General exam; elderly lady, currently in no distress. Exam/Review of Systems Exam Vitals Vital Signs Date Temp Pulse Resp B/P (MAP) Pulse Ox O2 O2 Flow FiO2 Time Delivery Rate 11/06/18 52 08:19 11/06/18 2.0 08:08 11/06/18 16 96 Nasal 08:08 Cannula 11/06/18 97.4 116/48 07:16 (70) Intake and Output 11/05/18 11/05/18 11/06/18 1515:00 23:00 07:00 IntakeIntake Total 50 ml 1095 ml 920 ml OutputOutput Total 700 ml 550 ml BalanceBalance 50 ml 395 ml 370 ml Exam H ENT exam; supple neck, no JVD. No lymphadenopathy. Midline trachea. No thyromegaly. Chest exam; diminished breath sounds bilaterally. No added sounds. S1-S2 audible, no murmurs. Regular rhythm. Abdomen exam; soft, scaphoid. Bowel sounds audible. Nontender. No organomegaly. Extremity exam; no peripheral edema clubbing. PATIENT CARE ASSISTANT exam; patient exhibiting severe generalized weakness. Results Result Diagram: 11/06/18 0611/06/18 06 Results 24hrs Laboratory Tests Test 11/05/18 13:59 11/06/18 06:01 Blood Gas Specimen Source Blood arterial Arterial Blood Date Drawn 11/05/2018 2:25:32 PM Arterial Blood pH (Temp corrected) 7.467 H Arterial Blood pCO2 (Temp correct) 53.6 H Arterial Blood pO2 (Temp corrected) 74.1 L Arterial Blood HCO3 37.9 H Arterial Blood Base Excess 12.5 H Arterial Blood Oxygen Saturation 94.4 L Bahman Test ACCEPTAB Arterial Blood Gas Puncture Site Right Radial Arterial Blood Carboxyhemoglobin 0.3 Arterial Blood Methemoglobin 0.3 Blood Gas A-a O2 Differential 55.0 H Oxyhemoglobin Percent 93.8 Blood Gas Temperature 37.0 Blood Gas Modality NASAL CANNULA FiO2 27.0 Blood Gas Notified Whom TM Blood Gas Notified Time 11/05/2018 2:35:04 PM White Blood Count 3.6 #L Red Blood Count 2.61 L Hemoglobin 8.4 L Hematocrit 28.5 L Mean Corpuscular Volume 109.2 H Mean Corpuscular Hemoglobin 32.2 Mean Corpuscular Hemoglobin Concent 29.5 L Red Cell Distribution Width 17.1 H Platelet Count 60 L Mean Platelet Volume 11.3 H Immature Granulocytes % 0.600 H Neutrophils % 58.8 Lymphocytes % 20.8 Monocytes % 10.7 Eosinophils % 8.5 H Basophils % 0.6 Nucleated Red Blood Cells % 0.0 Immature Granulocytes # 0.020 Neutrophils # 2.1 Lymphocytes # 0.7 L Monocytes # 0.4 Eosinophils # 0.3 Basophils # 0.0 Nucleated Red Blood Cells # 0.0 Sodium Level 156 H Potassium Level 3.7 Chloride Level 123 H Carbon Dioxide Level 36 H Anion Gap -3 L Blood Urea Nitrogen 62 H Creatinine 1.17 H Est Glomerular Filtrat Rate mL/min Glucose Level 162 Calcium Level 8.7 Phosphorus Level 2.0 L Magnesium Level 3.3 H Medications Medication Current Medications IV Flush (NS 3 ml) 3 ml PER PROTOCOL IV ; Start 10/25/18 at 14:30 Ondansetron HCl (Zofran Inj) 4 mg Q6H PRN IV NAUSEA/VOMITING; Start 10/25/18 at 14:30 Albuterol/ Ipratropium (Duoneb) 3 ml Q6HWA RESP THERAPY HHN Last administered on 11/06/18at 08:08; Admin Dose 3 ML; Start 10/25/18 at 20:00 Albuterol/ Ipratropium (Duoneb) 3 ml Q2H RESP THERAPY PRN HHN Dyspnea; Start 10/25/18 at 14:30 Bisacodyl (Dulcolax Supp) 10 mg DAILY PRN [place] CONSTIPATION; Start 10/25/18 at 15:30 Escitalopram Oxalate (Lexapro) 10 mg DAILY GTB Last administered on 11/06/18 08:19; Admin Dose 10 MG; Start 10/26/18 at 09:00 Folic Acid (Folic Acid) 1 mg DAILY GTB Last administered on 11/06/18 08:19; Admin Dose 1 MG; Start 10/26/18 at 09:00 Latanoprost (Xalatan) 1 drop QHS BOTH EYES Last administered on 11/05/18 21:41; Admin Dose 1 DROP; Start 10/25/18 at 21:00 Levothyroxine Sodium (Synthroid) 50 mcg BEFORE BREAKFAST GTB Last administered on 11/06/18 05:16; Admin Dose 50 MCG; Start 10/26/18 at 07:00 Magnesium Hydroxide (Milk Of Mag) 30 ml DAILY GTB Last administered on 11/06/18 08:18; Admin Dose 30 ML; Start 10/26/18 at 09:00 Atropine Sulfate (Atropine (Syringe)) 0.5 mg PRN PRN IV heart rate less than 35 ; Start 10/25/18 at 22:00 Buspirone HCl (Buspar) 5 mg BID GTB Last administered on 11/06/18 08:19; Admin Dose 5 MG; Start 10/26/18 at 11:00 Enoxaparin Sodium (Lovenox) 30 mg DAILY SC Last administered on 11/06/18 08:41; Admin Dose 30 MG; Start 10/28/18 at 09:00 Meropenem/Sodium Chloride 50 ml @ 100 mls/hr Q12 IVPB Last administered on 11/06/18 08:18; Admin Dose 100 MLS/HR; Start 10/30/18 at 10:30 Lansoprazole (Prevacid) 15 mg DAILY@06 GTB Last administered on 11/05/18 05:54; Admin Dose 15 MG; Start 10/31/18 at 06:00 Acetaminophen/ Hydrocodone Bitart ([place] (5/325)) 1 tab Q4H PRN GTB MODERATE PAIN LEVEL 4-6 Last administered on 11/02/18 15:47; Admin Dose 1 TAB; Start 11/01/18 at 12:30 Doxazosin Mesylate (Cardura) 2 mg HS GTB Last administered on 11/05/18at 21:27; Admin Dose 2 MG; Start 11/03/18 at 21:00 Dextrose 1,000 ml @ 75 mls/hr [id number] IV Last administered on 11/06/18at 02:02; Admin Dose 75 MLS/HR; Start 11/04/18 at 10:00 Metronidazole (Flagyl) 500 mg Q8 GTB Last administered on 11/06/18at 05:15; Admin Dose 500 MG; Start 11/05/18 at 22:00 Amlodipine Besylate (Norvasc) 5 mg DAILY GTB ; Start 11/06/18 at 09:00 HUGO CHIU November 06, 2018 11:08
--- NOTE | 2018-11-06 11:43 | CONS ---
Assessment/Plan Assessment/Plan Hospital Course (Demo Recall) 1. Hypernatremia. The hypernatremia is correcting with water flushes down the PEG and IV D5W. would continue current treatment . 2. acute renal failure , her renal function is about the same as yesterday. She is nonoliguric. 3. dementia 4. diastolic CHF, bilateral pleural effusions 5. respiratory failure 6. hepatic steatatosis 7. Contraction alkalosis, improving with IV fluids and rehydration. Consultation Date/Type/Reason Admit Date/Time Oct 25, 2018 at 11:10 Initial Consult Date 11/05/18 Type of Consult Nephrology Requesting Provider: JOAN MURPHY NP Date/Time of Note DATE: 11/06/18 TIME: 11:36 24 HR Interval Summary Free Text/Dictation Ela is unresponsive. She does not seem to be having pain. The nurse says that she does wake up at times and speaks 1 word at a time. Subjective hx not possible: pt non-verbal Exam/Review of Systems Exam Vitals Vital Signs Date Temp Pulse Resp B/P (MAP) Pulse Ox O2 O2 Flow FiO2 Time Delivery Rate 11/06/18 97.4 56 20 116/43 99 Nasal 11:07 (67) Cannula 11/06/18 2.0 08:08 Intake and Output 11/05/18 11/05/18 11/06/18 1515:00 23:00 07:00 IntakeIntake Total 50 ml 1095 ml 920 ml OutputOutput Total 700 ml 550 ml BalanceBalance 50 ml 395 ml 370 ml Constitutional: non-verbal Respiratory: diminished breath sounds Cardiovascular: regular rate and rhythm Gastrointestinal: soft Musculoskeletal: nl extremities to inspection Results Result Diagram: 11/06/18 0601 11/06/18 0601 Results 24hrs Laboratory Tests Test 11/05/18 13:59 11/06/18 06:01 Blood Gas Specimen Source Blood arterial Arterial Blood Date Drawn 11/05/2018 2:25:32 PM Arterial Blood pH (Temp corrected) 7.467 H Arterial Blood pCO2 (Temp correct) 53.6 H Arterial Blood pO2 (Temp corrected) 74.1 L Arterial Blood HCO3 37.9 H Arterial Blood Base Excess 12.5 H Arterial Blood Oxygen Saturation 94.4 L Bahman Test ACCEPTAB Arterial Blood Gas Puncture Site Right Radial Arterial Blood Carboxyhemoglobin 0.3 Arterial Blood Methemoglobin 0.3 Blood Gas A-a O2 Differential 55.0 H Oxyhemoglobin Percent 93.8 Blood Gas Temperature 37.0 Blood Gas Modality NASAL CANNULA FiO2 27.0 Blood Gas Notified Whom TM Blood Gas Notified Time 11/05/2018 2:35:04 PM White Blood Count 3.6 #L Red Blood Count 2.61 L Hemoglobin 8.4 L Hematocrit 28.5 L Mean Corpuscular Volume 109.2 H Mean Corpuscular Hemoglobin 32.2 Mean Corpuscular Hemoglobin Concent 29.5 L Red Cell Distribution Width 17.1 H Platelet Count 60 L Mean Platelet Volume 11.3 H Immature Granulocytes % 0.600 H Neutrophils % 58.8 Lymphocytes % 20.8 Monocytes % 10.7 Eosinophils % 8.5 H Basophils % 0.6 Nucleated Red Blood Cells % 0.0 Immature Granulocytes # 0.020 Neutrophils # 2.1 Lymphocytes # 0.7 L Monocytes # 0.4 Eosinophils # 0.3 Basophils # 0.0 Nucleated Red Blood Cells # 0.0 Sodium Level 156 H Potassium Level 3.7 Chloride Level 123 H Carbon Dioxide Level 36 H Anion Gap -3 L Blood Urea Nitrogen 62 H Creatinine 1.17 H Est Glomerular Filtrat Rate mL/min Glucose Level 162 Calcium Level 8.7 Phosphorus Level 2.0 L Magnesium Level 3.3 H Medications Medication Current Medications IV Flush (NS 3 ml) 3 ml PER PROTOCOL IV ; Start 10/25/18 at 14:30 Ondansetron HCl (Zofran Inj) 4 mg Q6H PRN IV NAUSEA/VOMITING; Start 10/25/18 at 14:30 Albuterol/ Ipratropium (Duoneb) 3 ml Q6HWA RESP THERAPY HHN Last administered on 11/06/18at 08:08; Admin Dose 3 ML; Start 10/25/18 at 20:00 Albuterol/ Ipratropium (Duoneb) 3 ml Q2H RESP THERAPY PRN HHN Dyspnea; Start 10/25/18 at 14:30 Bisacodyl (Dulcolax Supp) 10 mg DAILY PRN [place] CONSTIPATION; Start 10/25/18 at 15:30 Escitalopram Oxalate (Lexapro) 10 mg DAILY GTB Last administered on 11/06/18at 08:19; Admin Dose 10 MG; Start 10/26/18 at 09:00 Folic Acid (Folic Acid) 1 mg DAILY GTB Last administered on 11/06/18 08:19; Admin Dose 1 MG; Start 10/26/18 at 09:00 Latanoprost (Xalatan) 1 drop QHS BOTH EYES Last administered on 11/05/18 21:41; Admin Dose 1 DROP; Start 10/25/18 at 21:00 Levothyroxine Sodium (Synthroid) 50 mcg BEFORE BREAKFAST GTB Last administered on 11/06/18 05:16; Admin Dose 50 MCG; Start 10/26/18 at 07:00 Magnesium Hydroxide (Milk Of Mag) 30 ml DAILY GTB Last administered on 11/06/18 08:18; Admin Dose 30 ML; Start 10/26/18 at 09:00 Atropine Sulfate (Atropine (Syringe)) 0.5 mg PRN PRN IV heart rate less than 35 ; Start 10/25/18 at 22:00 Buspirone HCl (Buspar) 5 mg BID GTB Last administered on 11/06/18 08:19; Admin Dose 5 MG; Start 10/26/18 at 11:00 Enoxaparin Sodium (Lovenox) 30 mg DAILY SC Last administered on 11/06/18 08:41; Admin Dose 30 MG; Start 10/28/18 at 09:00 Meropenem/Sodium Chloride 50 ml @ 100 mls/hr Q12 IVPB Last administered on 11/06/18 08:18; Admin Dose 100 MLS/HR; Start 10/30/18 at 10:30 Lansoprazole (Prevacid) 15 mg DAILY@06 GTB Last administered on 11/05/18 05:54; Admin Dose 15 MG; Start 10/31/18 at 06:00 Acetaminophen/ Hydrocodone Bitart ([place] (5/325)) 1 tab Q4H PRN GTB MODERATE PAIN LEVEL 4-6 Last administered on 11/02/18 15:47; Admin Dose 1 TAB; Start 11/01/18 at 12:30 Doxazosin Mesylate (Cardura) 2 mg HS GTB Last administered on 11/05/18 21:27; Admin Dose 2 MG; Start 11/03/18 at 21:00 Dextrose 1,000 ml @ 75 mls/hr [id number] IV Last administered on 5/1/19at 02:02; Admin Dose 75 MLS/HR; Start 11/04/18 at 10:00 Metronidazole (Flagyl) 500 mg Q8 GTB Last administered on 11/06/18at 05:15; Admin Dose 500 MG; Start 11/05/18 at 22:00 Amlodipine Besylate (Norvasc) 5 mg DAILY GTB ; Start 11/06/18 at 09:00 NATASHA MOSLEY MD November 06, 2018 11:43
[2018-11-06] MEDS: LATANOPROST 0.005% 2.5 ML OPH BOTH EYES SCH (21:13)
[2018-11-06] MEDS: DOXAZOSIN 2 MG TAB GTB SCH (21:13)
[2018-11-07] VITALS (7 sets, daily range): BP systolic 121–143; BP diastolic 55–76; PULSE 63–69; RESP 19–20
[2018-11-07] MEDS: metroNIDAZOLE 500 MG TAB GTB SCH ×2 (06:04→15:02)
[2018-11-07] MEDS: DEXTROSE 5% 1,000 ML IV SCH (06:04)
[2018-11-07] MEDS: LANSOPRAZOLE 15 MG CAP GTB SCH (06:04)
[2018-11-07] MEDS: LEVOTHYROXINE 50 MCG TAB GTB SCH (06:07)
[2018-11-07] MEDS: ALBUTEROL/IPRATROPIUM (NEB) 3 ML AMP HHN SCH ×2 (07:21→13:04)
[2018-11-07] MEDS: MAGNESIUM HYDROXIDE 30ML CUP GTB SCH (08:24)
[2018-11-07] MEDS: MEROPENEM 1 GM/50ML(PMX) 50 ML IVPB SCH (08:25)
[2018-11-07] MEDS: ESCITALOPRAM 10 MG TAB GTB SCH (08:25)
[2018-11-07] MEDS: FOLIC ACID 1 MG TAB GTB SCH (08:25)
[2018-11-07] MEDS: BUSPIRONE 5 MG TAB GTB SCH (08:25)
[2018-11-07] MEDS: AMLODIPINE 5 MG TAB GTB SCH (08:25)
[2018-11-07] MEDS: ENOXAPARIN 30 MG/0.3 ML SYG SC SCH (08:33)
--- NOTE | 2018-11-07 08:45 | CONS ---
Assessment/Plan Assessment/Plan Hospital Course (Demo Recall) Sinus bradycardia: Likely due to metoprolol. No clear indication for MTP at this time as no tachyarrhythmia, LV dysfunction, or CAD. Resolved Encephalopathy: unclear baseline Acute on chronic diastolic heart failure: EF preserved, mod MR, mild-mod AR. Diuresed during this admission. Also s/p thoracentesis. Intravascularly euvolemic though third spacing from very low albumin. Hypernatremia: as high as 166, resolving Sepsis due to UTI HTN Dementia Bedbound Dysphagia s/p PEG -amlodipine 5 mg with holding parameters -D5W -may need albumin to assist with oncotic pressures and avoid further third spacing. JVP still flat so intravascular volume is still normal. Consultation Date/Type/Reason Admit Date/Time Oct 25, 2018 at 11:10 Initial Consult Date 11/05/18 Type of Consult Cardiology Requesting Provider: JOAN MURPHY NP Date/Time of Note DATE: 11/07/18 TIME: 08:44 24 HR Interval Summary Free Text/Dictation HR now 60s. No other events. Na improving Exam/Review of Systems Vital Signs Vitals Vital Signs Date Temp Pulse Resp B/P (MAP) Pulse Ox O2 O2 Flow FiO2 Time Delivery Rate 11/07/18 98.2 66 20 121/55 98 Nasal 07:55 (77) Cannula 11/07/18 2.0 07:23 Intake and Output 11/06/18 11/06/18 11/07/18 1515:00 23:00 07:00 IntakeIntake Total 50 ml 970 ml 1950 ml OutputOutput Total 100 ml 100 ml BalanceBalance 50 ml 870 ml 1850 ml Exam Constitutional: No alert, No oriented Head: normocephalic, atraumatic Neck: No jvd Respiratory: diminished breath sounds; No clear to auscultation Cardiovascular: regular rate and rhythm; No edema, No systolic murmur Gastrointestinal: soft, non-tender; No distended Musculoskeletal: No nl extremities to inspection Neurological: No nl mental status, No nl speech Labs Result Diagram: 11/06/18 0601 11/07/18 0632 Results 24hrs Laboratory Tests Test 11/06/18 10:56 11/06/18 15:03 11/06/18 19:29 11/07/18 06:32 Urine Random Creatinine 102.23 Urine Protein/Creatinine 0.41 Ratio Urine Total Protein 42.0 H Sodium Level 155 H 152 H 149 H Potassium Level 4.0 Chloride Level 114 H Carbon Dioxide Level 36 H Anion Gap -1 L Blood Urea Nitrogen 59 H Creatinine 1.32 H Est Glomerular Filtrat Rate mL/min Glucose Level 117 # Calcium Level 8.8 Medications Medications Current Medications IV Flush (NS 3 ml) 3 ml PER PROTOCOL IV ; Start 10/25/18 at 14:30 Ondansetron HCl (Zofran Inj) 4 mg Q6H PRN IV NAUSEA/VOMITING; Start 10/25/18 at 14:30 Albuterol/ Ipratropium (Duoneb) 3 ml Q6HWA RESP THERAPY HHN Last administered on 11/07/18 07:21; Admin Dose 3 ML; Start 10/25/18 at 20:00 Albuterol/ Ipratropium (Duoneb) 3 ml Q2H RESP THERAPY PRN HHN Dyspnea; Start 10/25/18 at 14:30 Bisacodyl (Dulcolax Supp) 10 mg DAILY PRN [place] CONSTIPATION; Start 10/25/18 at 15:30 Escitalopram Oxalate (Lexapro) 10 mg DAILY GTB Last administered on 11/07/18 08:25; Admin Dose 10 MG; Start 10/26/18 at 09:00 Folic Acid (Folic Acid) 1 mg DAILY GTB Last administered on 11/07/18 08:25; Admin Dose 1 MG; Start 10/26/18 at 09:00 Latanoprost (Xalatan) 1 drop QHS BOTH EYES Last administered on 11/06/18 21:13; Admin Dose 1 DROP; Start 10/25/18 at 21:00 Levothyroxine Sodium (Synthroid) 50 mcg BEFORE BREAKFAST GTB Last administered on 11/07/18 06:07; Admin Dose 50 MCG; Start 10/26/18 at 07:00 Magnesium Hydroxide (Milk Of Mag) 30 ml DAILY GTB Last administered on 11/07/18 08:24; Admin Dose 30 ML; Start 10/26/18 at 09:00 Atropine Sulfate (Atropine (Syringe)) 0.5 mg PRN PRN IV heart rate less than 35 ; Start 10/25/18 at 22:00 Buspirone HCl (Buspar) 5 mg BID GTB Last administered on 11/07/18 08:25; Admin Dose 5 MG; Start 10/26/18 at 11:00 Enoxaparin Sodium (Lovenox) 30 mg DAILY SC Last administered on 11/07/18 08:33; Admin Dose 30 MG; Start 10/28/18 at 09:00 Meropenem/Sodium Chloride 50 ml @ 100 mls/hr Q12 IVPB Last administered on 11/07/18 08:25; Admin Dose 100 MLS/HR; Start 10/30/18 at 10:30 Lansoprazole (Prevacid) 15 mg DAILY@06 GTB Last administered on 11/07/18 06:04; Admin Dose 15 MG; Start 10/31/18 at 06:00 Acetaminophen/ Hydrocodone Bitart ([place] (5/325)) 1 tab Q4H PRN GTB MODERATE PAIN LEVEL 4-6 Last administered on 11/02/18 15:47; Admin Dose 1 TAB; Start 11/01/18 at 12:30 Doxazosin Mesylate (Cardura) 2 mg HS GTB Last administered on 11/06/18 21:13; Admin Dose 2 MG; Start 11/03/18 at 21:00 Dextrose 1,000 ml @ 75 mls/hr [id number] Last administered on 11/07/18 06:04; Admin Dose 75 MLS/HR; Start 11/04/18 at 10:00 Metronidazole (Flagyl) 500 mg Q8 GTB Last administered on 11/07/18 06:04; Admin Dose 500 MG; Start 11/05/18 at 22:00 Amlodipine Besylate (Norvasc) 5 mg DAILY GTB Last administered on 11/07/18 08:25; Admin Dose 5 MG; Start 11/06/18 at 09:00 ADELA RINCON November 07, 2018 08:45
--- NOTE | 2018-11-07 09:47 | CONS ---
Assessment/Plan Assessment/Plan Hospital Course (Demo Recall) 1. Hypernatremia. The hypernatremia is correcting with water flushes down the PEG and IV D5W. I would recommend discontinuing the IV fluid and increasing water flushes. Continue to monitor serum sodium. 2. acute renal failure , her renal function is about the same . She is nonoliguric. 3. dementia 4. diastolic CHF, bilateral pleural effusions 5. respiratory failure 6. hepatic steatatosis 7. Contraction alkalosis, improving with IV fluids and rehydration. Consultation Date/Type/Reason Admit Date/Time Oct 25, 2018 at 11:10 Initial Consult Date 11/05/18 Type of Consult Nephrology Requesting Provider: JOAN MURPHY NP Date/Time of Note DATE: 11/07/18 TIME: 09:37 24 HR Interval Summary Free Text/Dictation This patient is unresponsive. She seems comfortable. Subjective hx not possible: pt non-verbal Exam/Review of Systems Exam Vitals Vital Signs Date Temp Pulse Resp B/P (MAP) Pulse Ox O2 O2 Flow FiO2 Time Delivery Rate 11/07/18 66 08:00 11/07/18 98.2 20 121/55 98 Nasal 07:55 (77) Cannula 11/07/18 2.0 07:23 Intake and Output 11/06/18 11/06/18 11/07/18 1515:00 23:00 07:00 IntakeIntake Total 50 ml 970 ml 1950 ml OutputOutput Total 100 ml 100 ml BalanceBalance 50 ml 870 ml 1850 ml Exam She has no leg edema. She does have some contractures of her feet. Constitutional: non-verbal Respiratory: clear to auscultation, diminished breath sounds Cardiovascular: regular rate and rhythm Gastrointestinal: soft, non-tender Results Result Diagram: 11/06/18 0601 11/07/18 0632 Results 24hrs Laboratory Tests Test 11/06/18 10:56 11/06/18 15:03 11/06/18 19:29 11/07/18 06:32 Urine Random Creatinine 102.23 Urine Protein/Creatinine 0.41 Ratio Urine Total Protein 42.0 H Sodium Level 155 H 152 H 149 H Potassium Level 4.0 Chloride Level 114 H Carbon Dioxide Level 36 H Anion Gap -1 L Blood Urea Nitrogen 59 H Creatinine 1.32 H Est Glomerular Filtrat Rate mL/min Glucose Level 117 # Calcium Level 8.8 Medications Medication Current Medications IV Flush (NS 3 ml) 3 ml PER PROTOCOL IV ; Start 10/25/18 at 14:30 Ondansetron HCl (Zofran Inj) 4 mg Q6H PRN IV NAUSEA/VOMITING; Start 10/25/18 at 14:30 Albuterol/ Ipratropium (Duoneb) 3 ml Q6HWA RESP THERAPY HHN Last administered on 11/07/18 07:21; Admin Dose 3 ML; Start 10/25/18 at 20:00 Albuterol/ Ipratropium (Duoneb) 3 ml Q2H RESP THERAPY PRN HHN Dyspnea; Start 10/25/18 at 14:30 Bisacodyl (Dulcolax Supp) 10 mg DAILY PRN [place] CONSTIPATION; Start 10/25/18 at 15:30 Escitalopram Oxalate (Lexapro) 10 mg DAILY GTB Last administered on 11/07/18 08:25; Admin Dose 10 MG; Start 10/26/18 at 09:00 Folic Acid (Folic Acid) 1 mg DAILY GTB Last administered on 11/07/18 08:25; Admin Dose 1 MG; Start 10/26/18 at 09:00 Latanoprost (Xalatan) 1 drop QHS BOTH EYES Last administered on 11/06/18 21:13; Admin Dose 1 DROP; Start 10/25/18 at 21:00 Levothyroxine Sodium (Synthroid) 50 mcg BEFORE BREAKFAST GTB Last administered on 11/07/18 06:07; Admin Dose 50 MCG; Start 10/26/18 at 07:00 Magnesium Hydroxide (Milk Of Mag) 30 ml DAILY GTB Last administered on 11/07/18 08:24; Admin Dose 30 ML; Start 10/26/18 at 09:00 Atropine Sulfate (Atropine (Syringe)) 0.5 mg PRN PRN IV heart rate less than 35 ; Start 10/25/18 at 22:00 Buspirone HCl (Buspar) 5 mg BID GTB Last administered on 11/07/18 08:25; Admin Dose 5 MG; Start 10/26/18 at 11:00 Enoxaparin Sodium (Lovenox) 30 mg DAILY SC Last administered on 11/07/18 08:33; Admin Dose 30 MG; Start 10/28/18 at 09:00 Meropenem/Sodium Chloride 50 ml @ 100 mls/hr Q12 IVPB Last administered on 11/07/18 08:25; Admin Dose 100 MLS/HR; Start 10/30/18 at 10:30 Lansoprazole (Prevacid) 15 mg DAILY@06 GTB Last administered on 11/07/18at 06:04; Admin Dose 15 MG; Start 10/31/18 at 06:00 Acetaminophen/ Hydrocodone Bitart ([place] (5/325)) 1 tab Q4H PRN GTB MODERATE PAIN LEVEL 4-6 Last administered on 11/02/18at 15:47; Admin Dose 1 TAB; Start 11/01/18 at 12:30 Doxazosin Mesylate (Cardura) 2 mg HS GTB Last administered on 11/06/18at 21:13; Admin Dose 2 MG; Start 11/03/18 at 21:00 Metronidazole (Flagyl) 500 mg Q8 GTB Last administered on 11/07/18 06:04; Admin Dose 500 MG; Start 11/05/18 at 22:00 Amlodipine Besylate (Norvasc) 5 mg DAILY GTB Last administered on 11/07/18 08:25; Admin Dose 5 MG; Start 11/06/18 at 09:00 NATASHA MOSLEY MD November 07, 2018 09:47
--- NOTE | 2018-11-07 11:03 | DS ---
Date/Time of Note Date/Time of Note DATE: 11/07/18 TIME: 10:59 Discharge Summary Admission/Discharge Info Admit Date/Time Oct 25, 2018 at 11:10 Discharge Date/Time Discharge Diagnosis Acute diastolic CHF with acute hypoxic respiratory failure: s/p Sepsis: source:uti/aspiration pna Right pleural effusion Multidrug-resistant E. coli/ESBL UTI Hypertension. Hypothyroidism. Dysphagia/G-tube feeding. Essential hypertension Hypernatremia, secondary to dehydration. Improved Patient Condition: Stable Consults ,pulmonary ,GI ,nephro Procedures 10/29/2018. IMPRESSION: 1. Satisfactory ultrasound-guided right thoracentesis. 10/25/2018 echocardiogram. Conclusions: Normal left ventricular systolic function. Normal left ventricular cavity size. Normal left ventricular wall thickness. Ejection fraction is visually estimated at 55-60 %. Tissue Doppler/Mitral Doppler indices are consistent with pseudonormalization with mildly elevated left atrial pressure (Stage II diastolic dysfunction). Normal right ventricular size. Normal right ventricular systolic function. The left atrium is normal in size. The right atrium is normal in size. Not well visualized. Moderate mitral valve regurgitation. No hemodynamically significant aortic stenosis by doppler. Mild to moderate aortic valve regurgitation. Estimated peak PA systolic pressure 35 mmHg. There is moderate tricuspid regurgitation. Normal pericardium with no significant pericardial effusion. Pleural effusion seen. Electronically Signed By: Lon Marroquin 2018-10-28 14:42:03 PDT 10/30/2017. Replacement G-tube. Hospital Course :88 year old female with past medical history of hypertension, hyperlipidemia, hypothyroidism, dementia, dysphagia status post G-tube placement, and carotid artery disease transferred from the SNF w/resp distress and dislodged G-tube, found to have sepsis/uti/ pna/CHF exacerbation.. Patient remained in baseline mental status which is somnolent/mostly unresponsive and nonverbal. She was treated with appropriate antimicrobial, he was also noted with multidrug-resistant E. coli/ESBL UTI for which she also received meropenem. Resp status improved and she was able to tolerate oxygen via nasal cannula. She was continued on appropriate anaerobic coverage for possible aspiration pneumonia as well. Hospitalization was also noted for right-sided pleural effusion for which she underwent thoracentesis with pathology negative for malignancy. Patient also was treated with IV diuretics and beta-blockers for acute diastolic heart failure. Patient's respiratory status was optimized and then she underwent new G-tube placement on 10/30/2018. Patient was then started on tube feeding via G-tube. Patient was then noted with hyponatremia with free water deficit for which she was followed by puller over. Sodium level was corrected with rehydration and water flush via G-tube. She was also given desmopressin. Sodium level improved. Her labs and vital signs stable and respiratory status stable enough to be discharged back to SNF. Recommend nephrology and pulmonary follow-up after discharge. Approximately 60-minute was spent on coordinating the discharge on this patient. Patient was seen in collaboration with Dr. Farrar. Home Meds Active Scripts Ipratropium-Albuterol (Ipratropium-Albuterol) 0.5-3 Mg/3 Ml Ampul.neb, 3 ML HHN Q2H RESP THERAPY PRN for Dyspnea for 30 Days Prov:JOAN MURPHY V. DIETARY AIDE TEACHER 10/31/18 Ipratropium-Albuterol (Ipratropium-Albuterol) 0.5-3 Mg/3 Ml Ampul.neb, 3 ML HHN Q6HWA RESP THERAPY for 30 Days Prov:JOAN MURPHY NP 10/31/18 Metoprolol Tartrate* (Lopressor*) 25 Mg Tab, 25 MG PO BID, #60 TAB Prov:JOAN MURPHY V. DIETARY AIDE TEACHER 10/31/18 Reported Medications Magnesium Hydroxide* (Milk Of Magnesia*) 400 Mg/5 Ml Oral.susp, 30 ML GTB DAILY, ML 10/25/18 Bisacodyl (Dulcolax) 10 Mg Supp.rect, 10 MG RC DAILY PRN for CONSTIPATION, SUPP.RECT 10/25/18 Buspirone Hcl* (Buspirone Hcl*) 10 Mg Tab, 5 MG GTB BID, TAB 10/25/18 Escitalopram Oxalate* (Lexapro*) 10 Mg Tablet, 10 MG GTB DAILY, #30 TAB 10/25/18 Ferrous Sulfate* (Ferrous Sulfate*) 325 Mg Tabec, 325 MG GTB DAILY, TAB 10/25/18 Folic Acid* (Folic Acid*) 1 Mg Tablet, 1 MG GTB DAILY, TAB 10/25/18 Latanoprost (Latanoprost) 2.5 Ml Drops, 1 DROP BOTH EYES QHS, #1 BOTTLE 10/25/18 Levothyroxine Sodium* (Levoxyl*) 50 Mcg Tablet, 50 MCG GTB BEFORE BREAKFAST, #30 TAB GIVE 30MIN PRIOR TO START OF GT FEEDING ON EMPTY STOMACH 10/25/18 Aspirin (Low Dose Aspirin) 81 Mg Tablet.dr, 81 MG GTB DAILY, #30 TAB 10/25/18 Discontinued Reported Medications Na Phos,M-B/Na Phos,Di-Ba (ENEMA [id number]) 133 Ml Enema, 133 ML RC EVERY 72 HOURS PRN for CONSTIPATION, ENEMA 10/25/18 Amlodipine Besylate* (Norvasc*) 5 Mg Tablet, 5 MG GTB DAILY, TAB HOLD FOR SBP <110 10/25/18 Follow-up Plan TO [place] Primary Care Provider Care Physician No Primary Pending Labs Laboratory Tests Test 11/06/18 15:03 11/06/18 19:29 11/07/18 06:32 Sodium Level 155 152 149 mmol/L (135-144) mmol/L (135-144) mmol/L (135-144) Potassium Level 4.0 mmol/L (3.5-5.1) Chloride Level 114 mmol/L (97-110) Carbon Dioxide 36 mmol/L (21-31) Level Anion Gap -1 (5-13) Blood Urea 59 mg/dl (7-20) Nitrogen Creatinine 1.32 mg/dl (0.44-1.00) Est Glomerular mL/min (>60) Filtrat Rate mL/min Glucose Level 117 mg/dl (70-220) Calcium Level 8.8 mg/dl (8.4-10.2) JOAN MURPHY NP November 07, 2018 11:03
[2018-11-07] MEDS ORDERED: POTASSIUM PHOSPHATE 15 MM in SOD CHLORIDE 0.9% 250 ML IVPB ONE (12:30)
== END 2018-11-07 16:16 | DRG 871 ==
LOC: E/R 09:10 → 6WM 11:10 → 2NE 10-30 18:00 → ICU 11-04 10:45 → TEL 11-04 14:30
PROVIDERS: ADMIT Internal Medicine; ATTEND Internal Medicine
PROC: 0W993ZZ Drainage of Right Pleural Cavity, Percutaneous Approach (ICD-10-PCS; 2018-10-29)
PROC: 0DH63UZ Insertion of Feeding Device into Stomach, Percutaneous Approach (ICD-10-PCS; principal; 2018-10-30 15:30)
DX: A41.9 Sepsis, unspecified organism (principal); J69.0 Pneumonitis due to inhalation of food and vomit; J96.01 Acute respiratory failure with hypoxia; I50.33 Acute on chronic diastolic (congestive) heart failure; N39.0 Urinary tract infection, site not specified; E87.0 Hyperosmolality and hypernatremia; Z43.1 Encounter for attention to gastrostomy; J90 Pleural effusion, not elsewhere classified; I13.0 Hypertensive heart and chronic kidney disease with heart failure and stage 1 through stage 4 chronic kidney disease, or unspecified chronic kidney disease; N17.9 Acute kidney failure, unspecified; G93.40 Encephalopathy, unspecified; R65.20 Severe sepsis without septic shock; E03.9 Hypothyroidism, unspecified; R13.10 Dysphagia, unspecified; E78.5 Hyperlipidemia, unspecified; F03.90 Unspecified dementia, unspecified severity, without behavioral disturbance, psychotic disturbance, mood disturbance, and anxiety; B96.20 Unspecified Escherichia coli [E. coli] as the cause of diseases classified elsewhere; Z16.24 Resistance to multiple antibiotics; D69.6 Thrombocytopenia, unspecified; D64.89 Other specified anemias; F09 Unspecified mental disorder due to known physiological condition; N18.3 Chronic kidney disease, stage 3 (moderate); Z74.01 Bed confinement status; K76.0 Fatty (change of) liver, not elsewhere classified; E86.0 Dehydration
CPT/HCPCS: 32555; 36415; 36600; 71045; 76700; 80048; 80053; 80061; 80202; 81001; 81003; 82140; 82150; 82550; 82553; 82570; 82607; 82728; 82746; 82803; 82945; 83036; 83540; 83605; 83615; 83690; 83735; 83880; 84100; 84155; 84157; 84165; 84295; 84439; 84443; 84484; 85025; 85610; 85730; 86850; 86900; 86901; 87070; 87081; 87086; 87102; 87116; 87400; 88104; 88107; 88305; 89051; 93005; 93306; 94640; 94660; 94664; 96374; 96375; J0360; J0690; J1650; J1940; J2185; J2543; J3010; J3370; J3480; J7030; J7042; J7050; J7070